=== PATIENT | female | born 1975 | race Caucasian/White ===

== ENCOUNTER 2017-07-16 21:53 | Emergency (ER) | payer MEDICAID, SELFPAY ==
[2017-07-16 21:54] VITALS: BP 150/73; PULSE 90; RESP 20; TEMP 36.9; O2SAT 96; BMI 42.1
--- NOTE | 2017-07-16 22:41 | ED.DCSUM_ITS ---
- ER Visit Summary Date of Service: 07/16/17 Chief Complaint: [] Depression History of Present Illness: The patient is a 41 F [] complaining of severe depression. She does report a previous history of suicide attempt and suicidal thoughts however she denies suicidal thoughts at this time. She reports she wants to see the crisis counselor to prevent her from going to the point where she needs to have suicidal thoughts. Denies any self-harm. Reports increased depression as result of not seeing her kids recently. Boyfriend at the bedside reports a 19-year-old son does not visit frequently and the 16-year-old was adopted secondary to the patient's previous suicide attempt several years ago. Physical Examination: [] Afebrile, vital signs stable. Middle-age female in no acute distress. Cardia vascular exam is regular rate and rhythm. Lungs were auscultation. Abdomen soft nontender. Patient is tearful otherwise unremarkable physical examination. Test Results: [] CBC shows elevated white blood cell count at 13.5. BMP normal. HCG negative. Tox screen positive for THC. Ethanol negative. Emergency Department Course and Treatment: [] Patient given oral Ativan for anxiolysis. On serial examination she felt improvement. Crisis counselor interviewed the patient and feel she does not warrant any emergent psychiatric evaluation. Patient feels improved and is amenable to discharge. Treatment Plan: [] Discharge, follow-up with psychiatrist on Thursday. Disposition: [] Discharge, stable. Impression: [] Depression This note was generated with [employer] dictation software. It may contain incorrect words, spelling, and punctuation that were not noted in review of the chart prior to signing ED Disposition - Plan for ED Patient: Chief Complaint: Mental Health Referrals: Care Physician,No Primary [Primary Care Provider] -
[2017-07-16 22:50] LABS: Absolute Lymphocyte Count 3.26 X10^3/ul (0.83-4.51); Absolute Neutrophil Count 9.1 X10^3/uL (2.0-7.7); Basophil# 0.03 X10^3/uL; Basophil% 0.2 % (0-1); Eosinophil# 0.18 X10^3/uL; Eosinophils% 1.3 % (0-5); Hematocrit 44.4 % (37-47); Hemoglobin 14.8 g/dl (12.0-15.0); Lymphocyte # 3.26 X10^3/ul (4.0); Lymphocyte % 24.2 % (19-41); Mean Corp Hgb Conc 33.3 g/gl (32-36); Mean Corpuscular Hgb 30.6 pg (27.0-32.0); Mean Corpuscular Volume 91.9 fL (81-99); Monocyte# 0.82 X10^3/uL; Monocyte% 6.1 % (0-10); Neutrophil # 9.14 X10^3/uL (2.7-7.7); Neutrophil % 68.1 % (47-70); POSITIVE COUNT NO; POSITIVE DIFFERENTIAL NO; POSITIVE MORPHOLOGY NO; Platelet Count 262 K/mm3 (150-450); RBC Distribution Width SD 43.5 fl (35.1-43.9); Red Blood Count 4.83 M/mm3 (4.2-5.4); White Blood Count 13.5 K/mm3 (4.4-11.0)
[2017-07-16 22:59] LABS: Anion Gap 5 (5-15); BUN 5 mg/dL (7-18); Calcium,Total 9.2 mg/dL (8.5-10.1); Chloride 107 mmol/L (98-107); Creatinine, Serum 0.84 mg/dL (0.55-1.02); EST Glomerular Filtration Rate 80 mL/min (>60); Est Glom Filt Rate - Afr Amer 97 mL/min (>60); Estimated Creatinine Clearance 77.65 ml/min; Glucose 101 mg/dL (70-110); Potassium 3.6 mmol/L (3.5-5.1); Sodium Level 141 mmol/L (136-145)
[2017-07-16] MEDS: LORazepam 0.5 MG Tablet PO (23:03)
[2017-07-16 23:04] LABS: Alcohol, Blood (Medical)-Serum < 3.0 mg/dL
[2017-07-16 23:08] LABS: Amphetamine Urine VISTA NEGATIVE (<1000 ng/mL); Barbiturate Urine VISTA NEGATIVE (< 200 ng/mL); Benzodiazepine Urine VISTA NEGATIVE (< 200 ng/mL); Cocaine Urine VISTA NEGATIVE (< 300 ng/mL); Ecstacy Urine VISTA NEGATIVE (< 500 ng/mL); Methadone Urine VISTA NEGATIVE (< 300 ng/mL); PCP Urine VISTA NEGATIVE (< 25 ng/mL); THC Urine VISTA POSITIVE (< 50 ng/mL); Vista UDS pH Range 5
[2017-07-16 23:12] LABS: Pregnancy, Serum, hCG Quali. NEGATIVE Negative (0-9 Nonpreg)
[2017-07-17 00:57] VITALS: RESP 14
[2017-07-17 01:24] VITALS: RESP 14
--- NOTE | 2017-07-17 01:39 | ED.DEP ---
ED Disposition - Plan for ED Patient: Disposition: Home or Assisted Living Chief Complaint: Mental Health Instructions: ED Depression Referrals: Care Physician,No Primary [Primary Care Provider] -
[2017-07-17 02:06] VITALS: BP 126/90; PULSE 79; RESP 14; O2SAT 98
== END 2017-07-17 02:07 | disposition home or self-care (01) ==
PROVIDERS: Emergency Provider Emergency Medicine
DX: F32.9 Major depressive disorder, single episode, unspecified (principal); E66.9 Obesity, unspecified; F41.9 Anxiety disorder, unspecified; F29 Unspecified psychosis not due to a substance or known physiological condition; Z72.0 Tobacco use; Z79.899 Other long term (current) drug therapy
CPT/HCPCS: 80048; 80307; 80320; 84703; 85025; 99283; A4216; G0480

== ENCOUNTER 2017-07-21 12:29 | Emergency (ER) | payer MEDICAID, SELFPAY ==
[2017-07-21 12:29] VITALS: BP 146/75; PULSE 88; RESP 14; TEMP 36.7; BMI 40.4
[2017-07-21 13:01] LABS: Mucous, Urine 0 SEEN /hpf (<or=2+)
[2017-07-21 13:04] LABS: Color, Urine Yellow (Yellow); Glucose, Dipstick Normal (Normal); Ketone-Dipstick 5 mg/dl (Negative); Leukocyte Esterase-Dipstick 25 /ul (Negative); Nitrite-Dipstick Negative (Negative); Occult Blood-Urine 150 /ul (Negative); Protein-Dipstick 30 mg/dl (Negative); Specific Gravity, Urine 1.025 (1.002-1.030); Urine Clarity Sl. Cloudy (Clear); Urine Urobilinogen 4 mg/dl (Normal)
[2017-07-21] MEDS: 0.9% Normal Saline 1,000 ML 1000 ML IV (13:30)
[2017-07-21] MEDS: Ketorolac 30 MG/ML Syringe IV (13:31)
[2017-07-21] MEDS: Ondansetron 4 MG/2 ML Vial IV (13:31)
[2017-07-21 13:33] LABS: Urine Bilirubin Dipstick 1 mg/dL (Negative)
[2017-07-21 13:41] LABS: Bacteria 1+ /hpf (None Seen); Red Blood Cells-Urine 10-25 SEEN /hpf (0-5); Squamous Epithelial Cells - UA 5-10 SEEN /hpf (5-10); White Blood Cells 0-5 SEEN /hpf (0-5)
--- NOTE | 2017-07-21 13:46 | ED.DCSUM_ITS ---
- ER Visit Summary Date of Service: 07/21/17 Chief Complaint: Abdominal pain History of Present Illness: The patient is a 42 F with no primary care physician. She reports that she has suprapubic abdominal pain began approximately 1 month ago. It is a constant cramping pain. She reports he becomes sharp and stabbing when she urinates. Is 10 out of 10 at worst 910 currently. She has been nauseated, but has not vomited. No diarrhea. Last bowel was 2-3 days ago. No melena or hematochezia. No fever, chills, or flank pain. Physical Examination: Vitals: Stable. Afebrile. General: Well-nourished and well-developed. Head: Normocephalic atraumatic. Neck: Supple, no lymphadenopathy. No JVD. Nontender. Cardiovascular: Regular rate and rhythm. No murmurs. Respiratory: No respiratory distress. Clear to auscultation bilaterally. Abdominal: Soft, mild suprapubic tenderness to palpation, nondistended, normal bowel sounds. No guarding, rebound, or peritoneal signs. Back: Nontender. No CVA tenderness. Extremities: Nontender, no edema. Skin: Normal color, no rash. Neurologic: Alert and oriented ?3. Cranial nerves II through XII are intact. Normal strength and sensation. Psych: Normal affect. Test Results: UA is remarkable for leukocytes, blood, 10-25 white blood cells, and 1+ bacteria. There are also 5-10 epithelial cells. Emergency Department Course and Treatment: Patient was treated with Macrobid p.o. She is given a dose of Toradol and Zofran IV. She had an argument with her significant other in the room and became upset. She is given dose of Vistaril p.o. Treatment Plan: Patient will be discharged on Macrobid and Pyridium. In[facility] if not improving. Disposition: To home in improved and stable condition. Impression: 1. UTI. This note was generated with [employer] dictation software. It may contain incorrect words, spelling, and punctuation that were not noted in review of the chart prior to signing ED Disposition - Plan for ED Patient: Disposition: Home or Assisted Living Chief Complaint: Abd Pain Instructions: ED UTI Cystitis Female Prescriptions: Ondansetron [Zofran Odt] 4 mg PO Q8H PRN PRN #10 tablet PRN Reason: Nausea Nitrofurantoin Macrocrystals [Macrobid] 100 mg PO Q12 #14 capsule Phenazopyridine HCl [Pyridium] 200 mg PO BID PRN PRN #10 tab PRN Reason: Pain Referrals: Corinna Lawson [NON-STAFF] - 1 Week if not improving
[2017-07-21] MEDS: Nitrofurantoin Macrocrystals 100 MG Capsule PO (14:29)
[2017-07-21] MEDS: Phenazopyridine 95 MG Tablet 190 MG PO (14:29)
--- NOTE | 2017-07-21 14:42 | ED.RN ---
PT AND SIG OTHER IN ROOM YELLING AND SCREAMING. THIS RN INTERRUPTED X2 TO ASK WHAT WAS OCCURRING. ON THE THIRD TIME SECURITY WAS PAGED AND MALE HALF ASKED TO WAIT IN THE WAITING ROOM. PT STARTS SCREAMING. REQUESTS SOMETHING FOR NERVES. PT MEDICATED. DC INSTRUCTIONS GIVEN
== END 2017-07-21 14:43 | disposition home or self-care (01) ==
PROVIDERS: Emergency Provider Emergency Medicine
DX: N39.0 Urinary tract infection, site not specified (principal); F41.9 Anxiety disorder, unspecified; F32.9 Major depressive disorder, single episode, unspecified; F43.10 Post-traumatic stress disorder, unspecified; G43.909 Migraine, unspecified, not intractable, without status migrainosus; Z72.0 Tobacco use; Z79.899 Other long term (current) drug therapy
CPT/HCPCS: 81001; 96361; 96374; 96375; 99282; J7050; A4216; J2405

== ENCOUNTER 2017-07-25 21:48 | Emergency (ER) | payer MEDICAID, SELFPAY ==
[2017-07-25 21:49] VITALS: BP 122/72; PULSE 80; RESP 15; TEMP 36; BMI 42.0
--- NOTE | 2017-07-25 22:58 | CT_ITS ---
STUDY: CT ABDOMEN AND PELVIS WITHOUT CONTRAST REASON FOR EXAM: Female, 42 years old. Flank pain. Urinary pain RADIATION DOSAGE (If Supplied By Facility): CTDIvol = ( 22.30 ) mGy, DLP = ( 1130.77 ) mGycm TECHNIQUE: Transaxial images were obtained from the dome of the diaphragm to the symphysis pubis without oral contrast, and without intravenous contrast. Sagittal and coronal images were reconstructed. Individualized dose optimization techniques were used for this CT. COMPARISON: None. FINDINGS: The visualized lung bases are unremarkable. The visualized portions of the heart are within normal limits. Normal liver. There is non-visualization of the gallbladder, which may be secondary to either contraction or a prior cholecystectomy. Normal spleen. Normal pancreas. There is a small, circumscribed, smooth, low attenuation right adrenal mass, consistent with an adrenal adenoma. Normal left adrenal gland. Normal right kidney. Normal left kidney. There is a small hiatal hernia. Normal small intestine. Normal colon. The appendix is visualized and appears normal. Normal abdominal aorta. Normal inferior vena cava. Normal retroperitoneum. Normal urinary bladder. There is absence of the uterus consistent with a prior hysterectomy. Normal abdominal wall. Normal osseous structures. CT/Abdomen/Pelvis without Cont IMPRESSION: Right adrenal adenoma. Hysterectomy. There are no renal stones. There is no hydronephrosis. Electronically Signed: Kingsley Rudolph MD at 23:46 EST , Service support ,
[2017-07-25 23:07] LABS: Mucous, Urine 0 SEEN /hpf (<or=2+)
[2017-07-25 23:10] LABS: Color, Urine Yellow (Yellow); Glucose, Dipstick Normal (Normal); Ketone-Dipstick Negative (Negative); Leukocyte Esterase-Dipstick 25 /ul (Negative); Nitrite-Dipstick Positive (Negative); Occult Blood-Urine 50 /ul (Negative); Protein-Dipstick Negative (Negative); Specific Gravity, Urine 1.015 (1.002-1.030); Urine Clarity Sl. Cloudy (Clear); Urine Urobilinogen 4 mg/dl (Normal); Urine pH 6.5 (5.0 - 8.0)
[2017-07-25] MEDS: 0.9% Normal Saline 1,000 ML 999 ML IV (23:13)
[2017-07-25] MEDS: Ondansetron 4 MG/2 ML Vial IV (23:14)
[2017-07-25] MEDS: Ketorolac 30 MG/ML Syringe IV (23:14)
[2017-07-25 23:18] LABS: Urine Bilirubin Dipstick 3 mg/dL (Negative)
[2017-07-25 23:19] LABS: Bacteria RARE /hpf (None Seen); Red Blood Cells-Urine 0-5 SEEN /hpf (0-5); Squamous Epithelial Cells - UA 10-25 SEEN /hpf (5-10); White Blood Cells 0-5 SEEN /hpf (0-5)
[2017-07-25 23:20] LABS: Amorphous Sediment 1+ URATE
[2017-07-25 23:47] LABS: Absolute Neutrophil Count 6.8 X10^3/uL (2.0-7.7); Basophil# 0.03 X10^3/uL; Basophil% 0.2 % (0-1); Eosinophil# 0.34 X10^3/uL; Eosinophils% 2.7 % (0-5); Hematocrit 44.8 % (37-47); Hemoglobin 14.5 g/dl (12.0-15.0); Lymphocyte % 33.1 % (19-41); Mean Corp Hgb Conc 32.4 g/gl (32-36); Mean Corpuscular Hgb 30.1 pg (27.0-32.0); Mean Corpuscular Volume 92.9 fL (81-99); Mean Platelet Vol. 10.5 fl (6.2-12.0); Monocyte# 1.06 X10^3/uL; Monocyte% 8.6 % (0-10); Neutrophil # 6.82 X10^3/uL (2.7-7.7); Neutrophil % 55.2 % (47-70); Platelet Count 229 K/mm3 (150-450); RBC Distribution Width CV 12.9 % (11.6-14.6); RBC Distribution Width SD 43.8 fl (35.1-43.9); Red Blood Count 4.82 M/mm3 (4.2-5.4); White Blood Count 12.4 K/mm3 (4.4-11.0)
[2017-07-25 23:54] LABS: POSITIVE COUNT NO; POSITIVE DIFFERENTIAL NO; POSITIVE MORPHOLOGY NO
[2017-07-26 00:09] LABS: Anion Gap 7 (5-15); BUN 13 mg/dL (7-18); Calcium,Total 8.9 mg/dL (8.5-10.1); Chloride 108 mmol/L (98-107); Creatinine, Serum 0.81 mg/dL (0.55-1.02); EST Glomerular Filtration Rate 83 mL/min (>60); Est Glom Filt Rate - Afr Amer 100 mL/min (>60); Estimated Creatinine Clearance 79.72 ml/min; Glucose 92 mg/dL (74-106); Potassium 3.8 mmol/L (3.5-5.1); Sodium Level 141 mmol/L (136-145)
--- NOTE | 2017-07-26 00:22 | ED.DCSUM_ITS ---
- ER Visit Summary Date of Service: 07/26/17 Chief Complaint: Abdominal pain History of Present Illness: The patient is a 42 F who presents with about 3 weeks of lower abdominal pain. She describes this as aching. She denies any dysuria but does report urinary frequency and urgency. She has had nausea without vomiting or diarrhea. She reports subjective fevers but has not checked temperature. She was seen July 21 in the emergency department and diagnosed with UTI at that time and prescribed Macrobid and Pyridium. She states that over the past day she has also had some pain beginning to radiate into her right flank. Physical Examination: Afebrile vitals are normal Moist mucous membranes Heart regular rate and rhythm Lungs clear Abdomen soft she has some suprapubic tenderness but no guarding no rebound she does have some right CVA tenderness Test Results: Laboratory studies notable for white blood cell count 12.4. Urinalysis shows positive nitrates and small leukocyte esterase but 0-5 WBCs 0- 5 RBCs and 10-[address] of the flank shows an adrenal adenoma but no ureteral calculi. Emergency Department Course and Treatment: On review of patient's prior cysts labs she had red blood cells in the urine. She also complains of pain radiating into the right flank which raises concern for possible kidney stone. CT of the flank however shows no ureteral calculus. She does have an incidental adrenal adenoma which she states she has been told previously. On urinalysis she does not have pyuria but she does have bacteria and nitrite so we will treat and send this for culture. Patient was given a prescription for Bactrim and Zofran. While here symptomatically she was treated with IV fluids Toradol and Zofran. Patient was advised on signs and symptoms to monitor for, conditions under which to return to the emergency department. All questions answered at bedside patient was discharged. Treatment Plan: [] Disposition: Discharge Impression: Adrenal adenoma Abdominal pain UTI This note was generated with [employer] dictation software. It may contain incorrect words, spelling, and punctuation that were not noted in review of the chart prior to signing ED Disposition - Plan for ED Patient: Chief Complaint: Complaint Referrals: Care Physician,No Primary [Primary Care Provider] -
--- NOTE | 2017-07-26 00:22 | ED.DEP ---
ED Disposition - Plan for ED Patient: Chief Complaint: Complaint Instructions: ED UTI Cystitis Female Prescriptions: Ondansetron [Zofran Odt] 4 mg PO Q8H PRN PRN #10 tab PRN Reason: Nausea Smz/Tmp Ds [Bactrim Ds] 1 tab PO BID #20 tab Referrals: Care Physician,No Primary [Primary Care Provider] -
[2017-07-26] MEDS: HYDROcodone Bitartrate/Apap 5/325 Tablet PO (00:30)
[2017-07-26 00:34] VITALS: BP 125/66; PULSE 76; RESP 16; O2SAT 98
== END 2017-07-26 00:34 | disposition home or self-care (01) ==
LOC: ED 23:30
PROVIDERS: Emergency Provider Emergency Medicine
DX: N39.0 Urinary tract infection, site not specified (principal); D35.00 Benign neoplasm of unspecified adrenal gland; R10.30 Lower abdominal pain, unspecified; F43.10 Post-traumatic stress disorder, unspecified; F41.9 Anxiety disorder, unspecified; F32.9 Major depressive disorder, single episode, unspecified; Z79.899 Other long term (current) drug therapy; Z87.440 Personal history of urinary (tract) infections
CPT/HCPCS: 74176; 80048; 81001; 85025; 87086; 87088; 96361; 96374; 96375; 99284; J7030; J2405

== ENCOUNTER 2017-08-03 22:29 | Emergency (ER) | payer MEDICAID, SELFPAY ==
[2017-08-03 22:30] VITALS: BP 160/81; PULSE 104; RESP 18; TEMP 36.8; BMI 42.0
--- NOTE | 2017-08-03 23:00 | ED.DCSUM_ITS ---
- ER Visit Summary Date of Service: 08/03/17 Chief Complaint: Suicidal thoughts History of Present Illness: The patient is a 42 F states she got in a fight with her boyfriend vitaliy and was feeling depressed and wanted him to take her to the hospital to talk to somebody to see psychiatry. He refused and so she went outside in the cold and since she did not want to call crisis while outside in the cold, she came to the emergency department. She has an appointment with psychiatry in the morning, it is 11 at night at this time. She has had some recent medication additions, she had to stop 1 of them because of itching, which is why she has an appointment tomorrow morning. She denies any plan, says she feels suicidal though. She did not eat or drink anything prior to coming or take any drugs or medications or attempt to kill herself. With further history, it appears that the patient and her boyfriend are homeless and living with somebody else at the time, who apparently lost power because they are not pain the [employer], so they are running the placed on a generator. The patient has been upset with her boyfriend all day, according to him, and called him to take care of things with regards to the generator, and since it is not his or his home, he refused, so she became very upset at him, threatening to run out into traffic, and I believe this is a big part of what led to her coming to the emergency department. Physical Examination: Lungs are stable, she is texting on her phone and well- appearing. Physical exam is normal. She has labile emotions. She is talking passive aggressively concerning her psychiatrist and her boyfriend. She states that she wants to talk to somebody vitaliy, and not necessarily be admitted, but did not call crisis prior to coming. Test Results: Labs are normal except for a slight hypokalemia at 3.4 which is likely due to shift from her being anxious. Toxicology shows positive benzos and marijuana but is otherwise normal negative. is negative. Emergency Department Course and Treatment: Patient is medically cleared for crisis evaluation, who is currently backlogged and the patient is waiting. She is requesting something for her nerves. She is given Vistaril and will await crisis evaluation. Treatment Plan: Crisis evaluation and likely discharge for her appointment with psychiatry in the morning. Update: Crisis evaluated, comfortable with her being discharged home with her boyfriend who is here to pick her up, she has a counseling appointment at 11 AM which is 8 hours away, in addition to her psychiatry appointment for working on adjusting her medications. In the emergency department, she was passive aggressive with regards to the examiner, and the fact that I would not give her benzodiazepines to calm her down. She has a long-standing history of substance abuse for which she has a care plan here. Given her somewhat manipulative behavior here in the ER, I do not think giving her benzos is in her best interest. She is discharged with her boyfriend. Disposition: Discharge home Impression: Situational reaction to stress Suicidal thoughts Bipolar disorder This note was generated with [employer] dictation software. It may contain incorrect words, spelling, and punctuation that were not noted in review of the chart prior to signing ED Disposition - Plan for ED Patient: Disposition: Home or Assisted Living Chief Complaint: Suicidal Instructions: ED Manic Depression Referrals: Counseling,Center [GROUP OF PHYSICIANS] - (as scheduled in AM)
[2017-08-03 23:23] LABS: Absolute Lymphocyte Count 2.25 X10^3/ul (0.83-4.51); Absolute Neutrophil Count 5.2 X10^3/uL (2.0-7.7); Basophil# 0.03 X10^3/uL; Basophil% 0.4 % (0-1); Eosinophil# 0.23 X10^3/uL; Eosinophils% 2.8 % (0-5); Hematocrit 45.3 % (37-47); Hemoglobin 14.6 g/dl (12.0-15.0); Lymphocyte # 2.25 X10^3/ul (4.0); Lymphocyte % 27.1 % (19-41); Mean Corp Hgb Conc 32.2 g/gl (32-36); Mean Corpuscular Hgb 29.8 pg (27.0-32.0); Mean Corpuscular Volume 92.4 fL (81-99); Monocyte# 0.64 X10^3/uL; Monocyte% 7.7 % (0-10); Neutrophil # 5.15 X10^3/uL (2.7-7.7); Neutrophil % 61.9 % (47-70); Platelet Count 248 K/mm3 (150-450); RBC Distribution Width CV 13.5 % (11.6-14.6); RBC Distribution Width SD 45.5 fl (35.1-43.9); White Blood Count 8.3 K/mm3 (4.4-11.0)
[2017-08-03 23:24] LABS: POSITIVE COUNT NO; POSITIVE DIFFERENTIAL NO; POSITIVE MORPHOLOGY NO
[2017-08-03 23:35] LABS: Anion Gap 8 (5-15); BUN 7 mg/dL (7-18); BUN/Creat Ratio 7.5 RATIO (10-20); Calcium,Total 8.7 mg/dL (8.5-10.1); Chloride 107 mmol/L (98-107); Creatinine, Serum 0.94 mg/dL (0.55-1.02); EST Glomerular Filtration Rate 70 mL/min (>60); Est Glom Filt Rate - Afr Amer 85 mL/min (>60); Glucose 104 mg/dL (74-106); Potassium 3.4 mmol/L (3.5-5.1); Sodium Level 139 mmol/L (136-145)
[2017-08-03 23:45] LABS: Pregnancy, Serum, hCG Quali. NEGATIVE Negative (0-9 Nonpreg)
[2017-08-03 23:53] LABS: Alcohol, Blood (Medical)-Serum < 3.0 mg/dL
--- NOTE | 2017-08-03 23:54 | ED.RN ---
PT CALLS OUT AND ASKS FOR SOMETHING TO CALM ME DOWN PATIENT IS CURLED UP IN THE BLANKET, ON HER PHONE, DRINKING WATER AND WATCHING TV. DR WOOD NOTIFIED AND ORDERED PO VISTARIL. UPON THIS RN BRINGING MEDICATION INTO THE ROOM SHE STATES I AM WAY BEYOND THAT AND I DONT WANT BENADRYL EITHER EXPLAINED TO PATIENT THAT THIS IS THE ONLY THING THE DR IS WILLING TO GIVE HER RIGHT NOW. PT STARTS YELLING IM 42 YEARS OLD I KNOW MY BRAIN, VISTARIL WONT DO ANYTHING PT HAS CALLED OUT REPEATEDLY TO TALK TO THE DR, REFUSES TO TALK TO THE RN. DR. WOOD REFUSED
[2017-08-03 23:58] LABS: Amphetamine Urine VISTA NEGATIVE (<1000 ng/mL); Barbiturate Urine VISTA NEGATIVE (< 200 ng/mL); Benzodiazepine Urine VISTA POSITIVE (< 200 ng/mL); Cocaine Urine VISTA NEGATIVE (< 300 ng/mL); Ecstacy Urine VISTA NEGATIVE (< 500 ng/mL); Methadone Urine VISTA NEGATIVE (< 300 ng/mL); PCP Urine VISTA NEGATIVE (< 25 ng/mL); THC Urine VISTA POSITIVE (< 50 ng/mL); Vista UDS pH Range 6
[2017-08-04 00:31] VITALS: RESP 18
[2017-08-04 01:03] VITALS: BP 162/91; PULSE 91; RESP 17; O2SAT 98
--- NOTE | 2017-08-04 01:10 | NURSING ---
pt requesting something for anxiety. md notified no orders given at this time
[2017-08-04 02:47] VITALS: RESP 18
[2017-08-04 03:21] VITALS: BP 160/94; PULSE 104; RESP 16; O2SAT 97
== END 2017-08-04 03:22 | disposition home or self-care (01) ==
PROVIDERS: Emergency Provider Emergency Medicine
DX: R45.851 Suicidal ideations (principal); F43.9 Reaction to severe stress, unspecified; F31.9 Bipolar disorder, unspecified; Z59.0 Homelessness; E66.9 Obesity, unspecified; Z72.0 Tobacco use; Z79.899 Other long term (current) drug therapy
CPT/HCPCS: 80048; 80307; 80320; 84703; 85025; 99284; G0480

== ENCOUNTER 2017-08-10 21:35 | Emergency (ER) | payer MEDICAID, SELFPAY ==
[2017-08-10 21:35] VITALS: BP 153/94; PULSE 101; RESP 20; TEMP 36.7; O2SAT 93; BMI 41.6
--- NOTE | 2017-08-10 22:58 | ED.VISSUMM ---
- ER Visit Summary Date of Service: 08/10/17 Chief Complaint: [] Right lower back injury History of Present Illness: The patient is a 42 F presents with a back injury yesterday gradually she has been hurting. She had a syncopal episode where she fell back into the windowsill and then slid down the wall. She is a history of syncope frequently in the past. She tried Excedrin. She is a history of L5-S1 fusion. No significant trauma yesterday. It was more of a sliding mechanism. She is having pain in the right lower back. She does not history of prior back pain and chronic neck pain. Physical Examination: Vital signs reviewed General: Well-nourished well-developed Head: Normocephalic atraumatic Eyes: Pupils equal round and reactive to light extraocular movements intact ENT: TMs clear no hemotympanum no trauma Neck: Nontender full range of motion Cardiovascular: Regular rate rhythm no murmurs normal S1-S2 Respiratory: No distress clear to auscultation bilaterally chest nontender Abdomen: Soft nontender nondistended normal bowel sounds no masses Back: Nontender no CVA tenderness mild tenderness right lower lumbar spine without swelling or deformity or contusion. Decreased range of motion mild secondary to pain. Extremities: Nontender active range of motion ?4 extremities no trauma Skin: Normal color no trauma Neuro alert oriented cranial nerves II through XII intact normal strength sensation reflexes Test Results: [] Emergency Department Course and Treatment: [] Given intramuscular analgesia. Do not feel she needs anything home. She will take [id number] NSAIDs and follow-up as an outpatient. I think she just bruised and strained her back. Treatment Plan: [] Disposition: [] Impression: [] Lumbar back injury suspected strain and contusion This note was generated with [employer] dictation software. It may contain incorrect words, spelling, and punctuation that were not noted in review of the chart prior to signing ED Disposition - Plan for ED Patient: Chief Complaint: Back Referrals: Care Physician,No Primary [Primary Care Provider] -
--- NOTE | 2017-08-10 23:00 | ED.DEP ---
ED Disposition - Plan for ED Patient: Disposition: Home or Assisted Living Chief Complaint: Back Instructions: ED Sprain Strain Lumbar Referrals: Care Physician,No Primary [Primary Care Provider] - Pa Malik DO [NON-STAFF] -
[2017-08-10] MEDS: Orphenadrine 60 MG/2 ML Ampul IM (23:14)
[2017-08-10] MEDS: HYDROmorphone 1 MG/ML Syringe IM (23:14)
[2017-08-10] MEDS: Ondansetron ODT 4 MG Tablet PO (23:22)
[2017-08-10 23:34] VITALS: RESP 16
--- NOTE | 2017-08-10 23:35 | ED.RN ---
REVIEWED D/C INSTRUCTIONS, FOLLOW UP CARE, AND S/S THAT WOULD WARRANT A RETURN TO THE ED WITH PT. PT VERBALIZED AN UNDERSTANDING AND DENIES FURTHER QUESTIONS FOR THIS RN. PT SKIN P/W/D, RESP EVEN AND UNLABORED, PT A&O X 3, NO DISTRESS NOTED. PT AMBULATED OUT OF ED, GAIT STEADY.
== END 2017-08-10 23:36 | disposition home or self-care (01) ==
LOC: ED 23:07
PROVIDERS: Emergency Provider Emergency Medicine
DX: S39.92XA Unspecified injury of lower back, initial encounter (principal); R55 Syncope and collapse; E66.9 Obesity, unspecified; J45.909 Unspecified asthma, uncomplicated; M54.2 Cervicalgia; F43.10 Post-traumatic stress disorder, unspecified; F41.9 Anxiety disorder, unspecified; Z79.899 Other long term (current) drug therapy; Z72.0 Tobacco use; W18.30XA Fall on same level, unspecified, initial encounter; Y93.89 Activity, other specified; Y92.89 Other specified places as the place of occurrence of the external cause; Y99.8 Other external cause status
CPT/HCPCS: 96372; 99282

== ENCOUNTER 2017-10-04 15:55 | Emergency (ER) | payer MEDICAID, SELFPAY ==
[2017-10-04 15:55] VITALS: BP 138/71; PULSE 93; RESP 16; TEMP 36.7; O2SAT 100; BMI 41.8
--- NOTE | 2017-10-04 16:14 | CT_ITS ---
STUDY: CT ABDOMEN AND PELVIS WITH CONTRAST REASON FOR EXAM: Female, 42 years old. Right lower quadrant pain. RADIATION DOSAGE (If Supplied By Facility): CTDIvol = ( 18.31 ) mGy, DLP = ( 1227.43 ) mGycm TECHNIQUE: Transaxial images were obtained from the dome of the diaphragm to the symphysis pubis with oral contrast. 100ML ml of Isovue 300 contrast was administered. Sagittal and coronal images were reconstructed. Individualized dose optimization techniques were used for this CT. COMPARISON: 07/25/2017 FINDINGS: The visualized lung bases are unremarkable. The visualized portions of the heart are within normal limits. There is decreased attenuation of the liver consistent with steatosis. There is non-visualization of the gallbladder, which may be secondary to either contraction or a prior cholecystectomy. Normal spleen. Normal pancreas. Stable 2.1 cm mass of the right adrenal gland. Normal left adrenal gland. Normal right kidney. Normal left kidney. Normal visualized stomach. Normal small intestine. Moderate fecal retention, otherwise negative colon. The appendix is visualized and appears normal. Normal abdominal aorta. Normal inferior vena cava. Normal retroperitoneum. Normal urinary bladder. There is absence of the uterus consistent with a prior hysterectomy. Normal abdominal wall. Normal osseous structures. CT/Abdomen/Pelvis WITH Contrast IMPRESSION: No definite acute abnormality. Stable 2 cm right adrenal mass. Fecal retention. Electronically Signed: Michael Combs MD at 19:42 EDT , Service support ,
--- NOTE | 2017-10-04 16:20 | ED.DCSUM_ITS ---
- ER Visit Summary Date of Service: 10/04/17 Chief Complaint: Abdominal pain History of Present Illness: The patient is a 42 F intermittent right-sided abdominal pain 2 days ago. This morning pain right side has been constant. Sharp in nature. 9 out of 10. Complains of nausea. No vomiting or diarrhea. Normal BM this morning. No urinary symptoms. History of cholecystectomy. States feels similar to when she had her gallbladder removed. Complains of chills. History of hysterectomy. Still has her appendix. Drink fluids prior to arrival, ate chips 3 hours prior to arrival. Physical Examination: General: Alert and oriented ?3, no acute distress HEENT: Normocephalic, atraumatic. Moist mucosa membranes Neck: supple, nontender. Cardiovascular: Regular rate and rhythm, no murmurs Respiratory: Normal breath sounds, symmetric, no distress Abdomen: Soft, Tenderness guarding right lower quadrant, slight tenderness right upper quadrant without guarding, nondistended. Negative Rovsing's. Extremities: Nontender, no edema, pulses intact ?4 Neuro: no focal neurological deficits. Test Results: WBC 11.8. Hemoglobin 15.2. Creatinine 0.73. Lipase 125. Liver enzymes normal. UA noted [address] abdomen pelvis with contrast: Normal appendix. Right adrenal mass. Emergency Department Course and Treatment: Patient right lower quadrant tenderness with nausea. Appendectomy workup initiated. Given fluids. Abdominal labs normal. Given Zofran and fentanyl. Workup negative for appendicitis. There is no right adrenal mass. After reviewing findings with the patient, states she just wants to go home. No progression of symptoms. Abdomen is soft on reevaluation. Discussed adrenal mass with patient importance for her to follow-up for reevaluation. Patient understands and agrees with plan. Prescription of Zofran given. Treatment Plan: [] Disposition: Discharge Impression: 1. Nonspecific abdominal pain 2. Adrenal mass This note was generated with [employer] dictation software. It may contain incorrect words, spelling, and punctuation that were not noted in review of the chart prior to signing ED Disposition - Plan for ED Patient: Disposition: Home or Assisted Living Chief Complaint: Abd Pain Diagnosis: Nonspecific abdominal pain, Right adrenal mass Instructions: ED Abdominal Pain Unkn Cause Prescriptions: Ondansetron [Zofran Odt] 4 mg PO Q8H PRN PRN #10 tablet PRN Reason: Nausea Referrals: Care Physician,No Primary [Primary Care Provider] - Radu Hills DO [STAFF PHYSICIAN] - 3-5 Days Additional Instructions: Normal appendix and workup. Right adrenal mass of 2 cm. Follow-up as an outpatient reevaluation and further testing.
[2017-10-04 16:48] LABS: Mucous, Urine 0 SEEN /hpf (<or=2+); Red Blood Cells-Urine 0 SEEN /hpf (0-5)
[2017-10-04 16:56] LABS: Color, Urine Yellow (Yellow); Glucose, Dipstick Normal (Normal); Ketone-Dipstick Negative (Negative); Leukocyte Esterase-Dipstick Negative /ul (Negative); Nitrite-Dipstick Negative (Negative); Occult Blood-Urine 25 /ul (Negative); Protein-Dipstick Negative (Negative); Urine Bilirubin Dipstick Negative (Negative); Urine Clarity Sl. Cloudy (Clear); Urine Urobilinogen Normal (Normal); Urine pH 6.5 (5.0 - 8.0)
[2017-10-04] MEDS: Ondansetron 4 MG/2 ML Vial IV (17:01)
[2017-10-04] MEDS: fentaNYL 100 MCG/2 ML Ampul 50 MCG IV ×2 (17:01→18:08)
[2017-10-04] MEDS: 0.9% Normal Saline 1,000 ML 125 ML IV (17:02)
[2017-10-04 17:05] LABS: Bacteria RARE /hpf (None Seen); Squamous Epithelial Cells - UA 5-10 SEEN /hpf (5-10); White Blood Cells 0-5 SEEN /hpf (0-5)
[2017-10-04 17:30] LABS: Absolute Lymphocyte Count 4.34 X10^3/ul (0.83-4.51); Absolute Neutrophil Count 5.8 X10^3/uL (2.0-7.7); Basophil# 0.03 X10^3/uL; Basophil% 0.3 % (0-1); Eosinophil# 0.28 X10^3/uL; Eosinophils% 2.4 % (0-5); Hematocrit 45.3 % (37-47); Hemoglobin 15.2 g/dl (12.0-15.0); Lymphocyte # 4.34 X10^3/ul (4.0); Lymphocyte % 36.7 % (19-41); Mean Corp Hgb Conc 33.6 g/gl (32-36); Mean Corpuscular Hgb 30.3 pg (27.0-32.0); Mean Corpuscular Volume 90.2 fL (81-99); Mean Platelet Vol. 9.7 fl (6.2-12.0); Monocyte# 1.35 X10^3/uL; Monocyte% 11.4 % (0-10); Neutrophil # 5.81 X10^3/uL (2.7-7.7); Platelet Count 253 K/mm3 (150-450); RBC Distribution Width CV 13.3 % (11.6-14.6); RBC Distribution Width SD 43.7 fl (35.1-43.9); Red Blood Count 5.02 M/mm3 (4.2-5.4); White Blood Count 11.8 K/mm3 (4.4-11.0)
[2017-10-04 17:33] LABS: POSITIVE COUNT NO; POSITIVE DIFFERENTIAL NO; POSITIVE MORPHOLOGY NO
[2017-10-04 18:00] VITALS: BP 130/78; PULSE 74; RESP 16; O2SAT 95
[2017-10-04 18:01] LABS: ALB/GLOB Ratio 0.9 RATIO (0.9-2.4); AST(SGOT) 15 U/L (15-37); Alanine Aminotransfer ALT/SGPT 17 U/L (13-56); Albumin, Serum 3.3 g/dL (3.2-5.0); Alkaline Phosphatase 100 U/L (45-117); Anion Gap 7 (5-15); BUN 3 mg/dL (7-18); BUN/Creat Ratio 4.1 RATIO (10-20); Calcium,Total 8.6 mg/dL (8.5-10.1); Chloride 109 mmol/L (98-107); Creatinine, Serum 0.73 mg/dL (0.55-1.02); EST Glomerular Filtration Rate 94 mL/min (>60); Est Glom Filt Rate - Afr Amer 114 mL/min (>60); Estimated Creatinine Clearance 88.46 ml/min; Globulin 3.7 g/dL (2.2-4.2); Glucose 81 mg/dL (74-106); Lipase 125 U/L (73-393); Potassium 4.3 mmol/L (3.5-5.1); Sodium Level 140 mmol/L (136-145)
[2017-10-04 20:00] VITALS: RESP 18
[2017-10-04 20:27] VITALS: BP 125/84; PULSE 93; RESP 15; O2SAT 95
== END 2017-10-04 20:33 | disposition home or self-care (01) ==
PROVIDERS: Emergency Provider Emergency Medicine
DX: R10.31 Right lower quadrant pain (principal); R10.11 Right upper quadrant pain; E27.8 Other specified disorders of adrenal gland; R11.0 Nausea; F43.10 Post-traumatic stress disorder, unspecified; F41.9 Anxiety disorder, unspecified; F32.9 Major depressive disorder, single episode, unspecified; Z72.0 Tobacco use; Z79.899 Other long term (current) drug therapy
CPT/HCPCS: 74177; 80053; 81001; 83690; 85025; 96361; 96374; 96375; 96376; 99285; J7030; Q9967; J2405

== ENCOUNTER 2017-11-02 21:35 | Emergency (ER) | payer MEDICAID, SELFPAY ==
[2017-11-02 21:36] VITALS: BP 148/73; PULSE 97; RESP 18; TEMP 36.7; O2SAT 99; BMI 40.9
--- NOTE | 2017-11-02 22:44 | ED.VISSUMM ---
- ER Visit Summary Date of Service: 11/02/17 Chief Complaint: Headache History of Present Illness: The patient is a 42 F [place] to the emergency department migraine headache. Patient has a history of migraine. She states that this is her normal headache. It started gradually yesterday. She has tried Excedrin Migraine both yesterday and today with no relief. She does take tizanidine from time to time for her headache. She does follow with a neurologist in [place]. She denies any trauma. She denies any carbon monoxide exposure. She denies any visual change. Physical Examination: Well-appearing patient is in no acute distress. Head is normocephalic, atraumatic. Pupils equal round reactive, extraocular muscles intact. There is no temporal artery tenderness. There is no vesicular rash. Neck supple. Kernig's and Brudzinski's are negative. Heart regular rate and rhythm. Lungs clear, chest nontender. Abdomen soft, nontender, nondistended. Neuro exam displays no focal or lateralizing deficit. 2+ symmetric lower extremity reflexes. No clonus. No ataxia or gait abnormality. Test Results: [] Emergency Department Course and Treatment: The patient presents with a migraine. She is a benign neurologic examination. She did not want IV medications. I had ordered the patient IM Phenergan, Benadryl, Toradol. The patient states those are not going to fucking work to the nurse. She states these medications never work. She states that she needs narcotics. The nurse tried to explain to her that narcotics and migraines are not appropriate. The patient states I get them all the time. The patient eloped from the emergency department without treatment. Treatment Plan: [] Disposition: Discharge Impression: 1. Migraine This note was generated with [employer] software. It may contain incorrect words, spelling, and punctuation that were not noted in review of the chart prior to signing ED Disposition - Plan for ED Patient: Chief Complaint: Headache Referrals: Care Physician,No Primary [Primary Care Provider] -
--- NOTE | 2017-11-02 22:56 | ED.RN ---
WHEN THIS RN ATTEMPTED TO MEDICATE PT, PT ASKED WHAT MEDS SHE WAS GETTING. INFORMED PT OF TORADOL, BENADRYL, AND PHENERGAN. PT SCOFFED AND SAID THEY WOULD NOT WORK. ASKED PT WHAT MEDS TYPICALLY HELPED OR IF THERE WAS A CERTAIN MEDICATION SHE WAS LOOKING FOR TO HELP HER. PT STATES I OUGHT TO JUST FUCKING LEAVE. I ALWAYS GET ACCUSED OF BEING A DRUG SEEKER WHEN I'M HERE. INFORMED PT THAT THIS RN WAS ONLY TRYING TO HELP PT IN WHAT SHE THOUGHT WOULD HELP HER. APOLOGIZED TO PT FOR HER THINKING PREVIOUS STATEMENT WAS IMPLIED. PT THEN BEGAN TALKING ABOUT OTHER DRS GIVING HER DIFFERENT MEDS, UPSET BECAUSE DRS TELL HER THIS IS THE COMBO OF MEDS YOU GET, THERE IS NOTHING ELSE WE CAN DO. INFORMED PT THIS IS THE TYPICAL MED COMBO THAT IS GIVEN FOR HEADACHES, AND THAT NARCOTICS WERE NOT GIVEN FOR MIGRAINES, DUE TO REBOUND HEADACHES. PT BECAME VERY IRATE AND BEGAN YELLING AND CUSSING AT NURSING STAFF WHILE LEAVING DEPARTMENT. PT VERBALIZED ISSUES THAT SHE IS ALWAYS TREATED LIKE A DRUG SEEKER WHEN SHE COMES TO THIS ER, AND THAT SHE IS NEVER GIVEN NARCOTICS BECAUSE [facility] ER LABELS HER A SEEKER. PT SIGNIFICANT OTHER CAME BACK TO NURSES STATION AFTER PT LEFT, ASKED THIS RN FIRST AND LAST NAME. THIS RN GAVE PT FIRST NAME, BUT TOLD S/O THAT LAST NAMES ARE NOT GIVEN DUE TO SAFETY CONCERNS.
--- NOTE | 2017-11-02 23:08 | ED.RN ---
PATIENT UPON LEAVING UPSET AND YELLING SAYING THAT SHE IS NOT A DRUG SEEKER AND THAT SHE IS NOT RECEIVING THE PROPER CARE. PATIENT LEFT THE ER SLAMMING AND HITTING OBJECTS SHE WAS LEAVING. SIGNIFICANT OTHER CAME BACK AND ASKED FOR NURSES INFORMATION. ADVISED THAT WE ONLY GIVE OUT FIRST NAMES. HE WAS FINE WITH THIS AND LEFT AT THIS TIME. DR. BLACKBURN MADE AWARE OF PATIENT ISSUE AND CONCERNS.
== END 2017-11-02 23:10 | disposition home or self-care (01) ==
LOC: ED 22:55
PROVIDERS: Emergency Provider Emergency Medicine
DX: G43.909 Migraine, unspecified, not intractable, without status migrainosus (principal); Z79.899 Other long term (current) drug therapy
CPT/HCPCS: 99282

== ENCOUNTER 2017-11-22 16:19 | Emergency (ER) | payer MEDICAID, SELFPAY ==
[2017-11-22 16:20] VITALS: BP 121/80; PULSE 103; RESP 15; TEMP 36.8; O2SAT 100; BMI 41.8
--- NOTE | 2017-11-22 16:45 | RAD_ITS ---
STUDY: X-RAY - RIGHT KNEE REASON FOR EXAM: Female, 42 years old. Pain. Fall. TECHNIQUE: 4 view(s) of the knee. COMPARISON: None. FINDINGS: Normal visualized distal femur. Normal visualized proximal tibia and fibula. Normal proximal tibiofibular articulation. There is no demonstrated fracture. Normal medial femorotibial compartment. Normal lateral femorotibial compartment. Normal patellofemoral articulation. There is no demonstrated joint effusion. The soft tissue structures are unremarkable. RAD/Knee 4 or More Views IMPRESSION: Normal x-ray examination of the knee. Electronically Signed: Michael Combs MD at 16:57 EDT , Service support ,
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
--- NOTE | 2017-11-22 17:01 | ED.DCSUM_ITS ---
- ER Visit Summary Date of Service: 11/22/17 Chief Complaint: Injury right knee and left hand History of Present Illness: The patient is a 42 F who went to her neighbor's house last evening. She relies she went to the wrong door. There is a step- off of 6 inches. She fell landing on her right knee and apparently injuring the volar surface of her left hand/wrist. She has not taken anything for the pain. She denies head trauma. She denies neck pain. She denies paresthesia, anesthesia medics presently or at the time of the injury. She denies any cardiorespiratory symptoms. She complains of pain with movement of the right knee and weightbearing. She does not have any area specific discomfort with regards to the left hand/wrist. She has no other complaints. Please read written note. Physical Examination: Vital signs are noted. Heart rate is 103. HEENT exam is unremarkable with no evidence of trauma. Heart is regular without murmur, gallop or rub. S1 and S2 are normal. Lungs are clear to auscultation with good movement of air bilaterally. Examination left upper extremity reveals no evidence of trauma. There is no point tenderness. Axillary, median, radial and ulnar function intact. Radial pulses palpable. There is no subungual hematoma noted. She has full active range of motion of her thumb and fingers. Capillary refill is normal. Sensation is normal. Examination of the right knee reveals an abrasion with erythema. There is no lymphangitis. The patella is not ballotable. There is no effusion. She complains of pain with varus and valgus stress testing; however, there is no laxity. Negative Tiburcio's test. Negative modified Tracy's test. She is able to extend 180? and flex to 90?. There is no pain to palpation the popliteal fossa nerves are palpable mass. DP and PT pulses are palpable. She has significant tenderness over the infrapatellar tendon. Test Results: 4 view x-ray of the knee was obtained. There is no fracture noted. There is osteophyte of the superior aspect of the patella. There is no effusion. There is no fracture noted. No foreign body is noted. Emergency Department Course and Treatment: X-ray of the knee was obtained to rule out fracture since she has joint line tenderness and rule out foreign body. Treatment Plan: Since patient has no contraindication to anti-inflammatory medication she was treated with Naprosyn. Last tetanus was 3 years ago. Disposition: Discharged home with appropriate home-going instructions Impression: 1. Mechanical fall with injury initial encounter 2. Abrasion/contusion right knee 3. Traumatic infrapatellar bursitis 4. Contusion left hand This note was generated with [employer] dictation software. It may contain incorrect words, spelling, and punctuation that were not noted in review of the chart prior to signing ED Disposition - Plan for ED Patient: Disposition: Home or Assisted Living Chief Complaint: Fall Instructions: ED Abrasion, ED Contusion Hand, ED Bursitis Prescriptions: Naproxen [Naprosyn] 500 mg PO BID #14 tab Referrals: Kimberly Gross, SEED CUTTER-C [Primary Care Provider] - 1 Week if not improving
--- NOTE | 2017-11-22 17:11 | NURSING ---
THIS RN INTO GIVE PTS TYLENOL AND ZOFRAN. PT LEFT DEPT WITHOUT RECEIVING MEDS AND PAPERWORK.
== END 2017-11-22 17:14 | disposition home or self-care (01) ==
PROVIDERS: Emergency Provider Emergency Medicine; Family Provider Nurse Practitioner Primary Care; PCP Nurse Practitioner Primary Care
DX: S80.211A Abrasion, right knee, initial encounter (principal); S60.222A Contusion of left hand, initial encounter; M70.41 Prepatellar bursitis, right knee; E66.9 Obesity, unspecified; Z72.0 Tobacco use; W17.89XA Other fall from one level to another, initial encounter; Y93.01 Activity, walking, marching and hiking; Y92.009 Unspecified place in unspecified non-institutional (private) residence as the place of occurrence of the external cause; Y99.8 Other external cause status
CPT/HCPCS: 73564; 99282

== ENCOUNTER 2018-01-13 23:34 | Emergency (ER) | payer MEDICAID, SELFPAY ==
[2018-01-13 23:36] VITALS: BP 119/68; PULSE 89; RESP 18; TEMP 36.5; O2SAT 99; BMI 42.2
--- NOTE | 2018-01-13 23:49 | ED.DCSUM_ITS ---
- ER Visit Summary Date of Service: 01/13/18 Chief Complaint: Headache History of Present Illness: The patient is a 42 F presenting with gradual onset headache which started 3 days ago. Pain is in the left side of her head. She states she has a history of migraines but they are typically on the right side. She denies fever. Denies trauma. She states she has had nausea and vomiting yesterday and today. Denies other complaints. Physical Examination: Vitals are stable. Patient is afebrile. Alert no acute distress. HEENT exam mild left maxillary sinus tenderness Neck is supple. No meningismus Lungs are clear and equal bilaterally. Heart is regular rate and rhythm. Abdomen is soft nontender nondistended. Extremities are unremarkable. Skin is warm and dry. No focal neurologic deficit. Remainder of exam is unremarkable. Emergency Department Course and Treatment: Patient declines IV placement and was given Compazine, Benadryl, Toradol IM. On reevaluation, she has improvement of her headache. She is requesting to go home. Advised to follow- up with her primary care physician. Advised return to ED if worsening complaints. Disposition: Discharge home Impression: Headache This note was generated with [employer] dictation software. It may contain incorrect words, spelling, and punctuation that were not noted in review of the chart prior to signing ED Disposition - Plan for ED Patient: Chief Complaint: Headache Referrals: Kimberly Gross NP-C [Primary Care Provider] -
[2018-01-13] MEDS: proCHLORPERazine 10 MG/2 ML Vial IM (23:56)
[2018-01-13] MEDS: Ketorolac 60 MG/2 ML Vial IM (23:56)
[2018-01-13] MEDS: DiphenhydrAMINE 50 MG/ML Syringe 25 MG IM (23:56)
--- NOTE | 2018-01-14 01:11 | ED.DEP ---
ED Disposition - Plan for ED Patient: Chief Complaint: Headache Instructions: ED Cephalgia Unspecified Referrals: Kimberly Gross NP-C [Primary Care Provider] -
[2018-01-14 01:17] VITALS: RESP 18
== END 2018-01-14 01:18 | disposition home or self-care (01) ==
LOC: ED 23:48
PROVIDERS: Emergency Provider Emergency Medicine; Family Provider Nurse Practitioner Primary Care; PCP Nurse Practitioner Primary Care
DX: R51 Headache (principal)
CPT/HCPCS: 96372; 99282

== ENCOUNTER 2018-01-29 00:24 | Emergency (ER) | payer MEDICAID, SELFPAY ==
[2018-01-29 00:26] VITALS: BP 122/78; PULSE 88; RESP 14; TEMP 36.6; O2SAT 98; BMI 39.9
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
--- NOTE | 2018-01-29 02:00 | ED.RN ---
pt states she was leaving and then left.
== END 2018-01-29 02:02 | disposition home or self-care (01) ==
LOC: ED 01:49
PROVIDERS: Emergency Provider Emergency Medicine; Family Provider Nurse Practitioner Primary Care; PCP Nurse Practitioner Primary Care
DX: S09.90XA Unspecified injury of head, initial encounter (principal); E66.9 Obesity, unspecified; M79.7 Fibromyalgia; Z72.0 Tobacco use; Z79.899 Other long term (current) drug therapy; W22.8XXA Striking against or struck by other objects, initial encounter; Y93.89 Activity, other specified; Y92.89 Other specified places as the place of occurrence of the external cause; Y99.8 Other external cause status
CPT/HCPCS: 99283

== ENCOUNTER 2018-02-18 17:12 | Emergency (ER) | payer MEDICAID, SELFPAY ==
[2018-02-18 17:13] VITALS: BP 129/111; PULSE 124; RESP 25; TEMP 36.8; O2SAT 97; BMI 42.5
[2018-02-18 17:21] VITALS: PULSE 112; RESP 17; O2SAT 98
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
[2018-02-18 17:58] LABS: Absolute Lymphocyte Count 4.25 X10^3/ul (0.83-4.51); Absolute Neutrophil Count 7.5 X10^3/uL (2.0-7.7); Basophil# 0.03 X10^3/uL; Basophil% 0.2 % (0-1); Eosinophil# 0.16 X10^3/uL; Eosinophils% 1.2 % (0-5); Hematocrit 43.4 % (37-47); Hemoglobin 14.5 g/dl (12.0-15.0); Lymphocyte # 4.25 X10^3/ul (4.0); Lymphocyte % 32.5 % (19-41); Mean Corp Hgb Conc 33.4 g/gl (32-36); Mean Corpuscular Hgb 30.1 pg (27.0-32.0); Monocyte# 1.11 X10^3/uL; Monocyte% 8.5 % (0-10); Neutrophil # 7.51 X10^3/uL (2.7-7.7); Neutrophil % 57.4 % (47-70); Platelet Count 268 K/mm3 (150-450); RBC Distribution Width CV 13.5 % (11.6-14.6); RBC Distribution Width SD 44.4 fl (35.1-43.9); Red Blood Count 4.82 M/mm3 (4.2-5.4); White Blood Count 13.1 K/mm3 (4.4-11.0)
[2018-02-18 17:59] LABS: POSITIVE COUNT NO; POSITIVE DIFFERENTIAL NO; POSITIVE MORPHOLOGY NO
[2018-02-18] MEDS: Aspirin 81 MG TAB.CHEW 324 MG PO (18:00)
[2018-02-18] MEDS: 0.9% Normal Saline 1,000 ML 1000 ML IV (18:11)
[2018-02-18 18:12] VITALS: BP 104/70; BP 115/62; PULSE 101; PULSE 108; RESP 21; O2SAT 97
--- NOTE | 2018-02-18 18:19 | ED.RN ---
DR BRUSH NOTIFIED PT C/O ROD AFTER FIRST NITRO. PT REFUSING ANY FURTHER NITRO
[2018-02-18 18:30] LABS: Anion Gap 12 (5-15); BUN 7 mg/dL (7-18); BUN/Creat Ratio 7.1 RATIO (10-20); Calcium,Total 8.8 mg/dL (8.5-10.1); Chloride 108 mmol/L (98-107); Creatinine, Serum 0.99 mg/dL (0.55-1.02); EST Glomerular Filtration Rate 66 mL/min (>60); Est Glom Filt Rate - Afr Amer 80 mL/min (>60); Estimated Creatinine Clearance 67.97 ml/min; Glucose 121 mg/dL (74-106); Potassium 3.6 mmol/L (3.5-5.1); Sodium Level 140 mmol/L (136-145)
[2018-02-18] MEDS: LORazepam 2 MG/ML Syringe 1 MG IV (18:30)
[2018-02-18 20:02] VITALS: PULSE 87; RESP 17; O2SAT 96
--- NOTE | 2018-02-18 21:07 | ED.DEP ---
ED Disposition - Plan for ED Patient: Disposition: Home or Assisted Living Chief Complaint: Chest Pain Instructions: ED Chest Pain Atypical Unkn Cause, ED Stress React Referrals: Kimberly Gross NP-C [Primary Care Provider] - 1-2 Days if not improving
[2018-02-18 21:24] VITALS: BP 111/84; PULSE 94; RESP 18; O2SAT 98
== END 2018-02-18 21:26 | disposition home or self-care (01) ==
PROVIDERS: Emergency Provider Emergency Medicine; Family Provider Nurse Practitioner Primary Care; PCP Nurse Practitioner Primary Care
DX: R07.9 Chest pain, unspecified (principal); F41.1 Generalized anxiety disorder; I10 Essential (primary) hypertension; M79.7 Fibromyalgia; E66.9 Obesity, unspecified; Z72.0 Tobacco use; Z79.899 Other long term (current) drug therapy
CPT/HCPCS: 36415; 71046; 80048; 84484; 85025; 93005; 96361; 96374; 99285; J7030; A4216

== ENCOUNTER 2018-03-18 06:51 | Emergency (ER) | payer MEDICAID, SELFPAY ==
[2018-03-18 06:53] VITALS: BP 155/103; PULSE 152; RESP 20; TEMP 36.6; O2SAT 97; BMI 44.2
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
[2018-03-18] MEDS: Ondansetron ODT 4 MG Tablet PO (08:31)
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
[2018-03-18 10:00] VITALS: RESP 16
== END 2018-03-18 10:25 | disposition home or self-care (01) ==
PROVIDERS: Emergency Provider Emergency Medicine; Family Provider Nurse Practitioner Primary Care; PCP Nurse Practitioner Primary Care
DX: S02.2XXA Fracture of nasal bones, initial encounter for closed fracture (principal); S00.531A Contusion of lip, initial encounter; S00.83XA Contusion of other part of head, initial encounter; R04.0 Epistaxis; Y04.0XXA Assault by unarmed brawl or fight, initial encounter; Y93.89 Activity, other specified; Y92.009 Unspecified place in unspecified non-institutional (private) residence as the place of occurrence of the external cause; F31.9 Bipolar disorder, unspecified; F41.9 Anxiety disorder, unspecified; F43.10 Post-traumatic stress disorder, unspecified; M79.7 Fibromyalgia; F12.90 Cannabis use, unspecified, uncomplicated; Z79.899 Other long term (current) drug therapy; Z72.0 Tobacco use
CPT/HCPCS: 70450; 70486; 99284

== ENCOUNTER 2018-04-04 14:23 | Emergency (ER) | payer MEDICAID, SELFPAY ==
[2018-04-04 14:24] VITALS: BP 122/88; PULSE 136; RESP 18; TEMP 36.4; O2SAT 97; BMI 41.4
--- NOTE | 2018-04-04 14:37 | ED.RN ---
Pt denies suicidal ideations upon arrival. This nurse verified pt intentions. I also confronted pt with her initial complaint per 911 call stating she claimed being suicidal. She admitted saying she was suicidal on the phone with priya but stated she got a lot off my chest on the way to the hospital. Directly states she does not want to hurt self and simply wants to talk with someone.
[2018-04-04] MEDS: Acetaminophen 325 MG Tablet 650 MG PO (14:54)
[2018-04-04] MEDS: Ondansetron ODT 4 MG Tablet PO (14:54)
[2018-04-04 14:55] LABS: Absolute Lymphocyte Count 2.32 X10^3/ul (0.83-4.51); Absolute Neutrophil Count 9.9 X10^3/uL (2.0-7.7); Basophil# 0.03 X10^3/uL; Basophil% 0.2 % (0-1); Eosinophil# 0.09 X10^3/uL; Eosinophils% 0.7 % (0-5); Hematocrit 43.6 % (37-47); Hemoglobin 14.4 g/dl (12.0-15.0); Lymphocyte # 2.32 X10^3/ul (4.0); Lymphocyte % 17.3 % (19-41); Mean Corpuscular Hgb 30.4 pg (27.0-32.0); Mean Platelet Vol. 9.4 fl (6.2-12.0); Monocyte# 1.03 X10^3/uL; Monocyte% 7.7 % (0-10); Neutrophil # 9.89 X10^3/uL (2.7-7.7); Platelet Count 310 K/mm3 (150-450); RBC Distribution Width CV 13.6 % (11.6-14.6); RBC Distribution Width SD 45.4 fl (35.1-43.9); Red Blood Count 4.74 M/mm3 (4.2-5.4); White Blood Count 13.4 K/mm3 (4.4-11.0)
[2018-04-04 14:57] LABS: POSITIVE COUNT NO; POSITIVE DIFFERENTIAL NO; POSITIVE MORPHOLOGY NO
[2018-04-04 14:58] LABS: Amphetamine Urine VISTA POSITIVE (<1000 ng/mL); Barbiturate Urine VISTA NEGATIVE (< 200 ng/mL); Benzodiazepine Urine VISTA NEGATIVE (< 200 ng/mL); Cocaine Urine VISTA NEGATIVE (< 300 ng/mL); Ecstacy Urine VISTA NEGATIVE (< 500 ng/mL); Methadone Urine VISTA NEGATIVE (< 300 ng/mL); PCP Urine VISTA NEGATIVE (< 25 ng/mL); THC Urine VISTA POSITIVE (< 50 ng/mL); Vista UDS pH Range 6
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
[2018-04-04 15:08] LABS: Anion Gap 7 (5-15); BUN 7 mg/dL (7-18); BUN/Creat Ratio 8.7 RATIO (10-20); Calcium,Total 9.1 mg/dL (8.5-10.1); Chloride 102 mmol/L (98-107); EST Glomerular Filtration Rate 84 mL/min (>60); Est Glom Filt Rate - Afr Amer 102 mL/min (>60); Estimated Creatinine Clearance 87.51 ml/min; Glucose 107 mg/dL (74-106); Sodium Level 135 mmol/L (136-145)
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
[2018-04-04 15:13] LABS: Pregnancy, Serum, hCG Quali. NEGATIVE Negative (0-9 Nonpreg)
[2018-04-04 15:22] LABS: Alcohol, Blood (Medical)-Serum < 3.0 mg/dL
[2018-04-04 16:01] VITALS: BP 129/85; PULSE 109; RESP 16; O2SAT 99
--- NOTE | 2018-04-04 17:10 | NURSING ---
ANGELA, CRISIS, HERE
--- NOTE | 2018-04-04 17:10 | ED.DEP ---
ED Disposition - Plan for ED Patient: Chief Complaint: Mental Health Instructions: ED Depression Referrals: Kimberly Gross, UTILITY BILL COLLECTION CLERK-C [Primary Care Provider] - As Needed Additional Instructions: follow up with crisis as instructed
--- NOTE | 2018-04-04 17:11 | DCINST.ED_ITS ---
ED Disposition - Plan for ED Patient: Chief Complaint: Mental Health Instructions: ED Depression Referrals: Kimberly Gross, MANUFACTURER'S REPRESENTATIVE-C [Primary Care Provider] - As Needed Additional Instructions: follow up with crisis as instructed
--- NOTE | 2018-04-04 17:11 | ED.VISSUMM ---
- ER Visit Summary Date of Service: 04/04/18 Chief Complaint: [Addendum to initial dictation by Dr. Leon] History of Present Illness: The patient is a 42 F [presented to the emergency department and was fully evaluated by morning physician and care turned over to me awaiting evaluation by crisis. At this point the patient is denying suicidal ideation and can contract for safety. It is felt patient can be safely discharged home. Morning physician also thought that patient would likely be able to go home.] Physical Examination: [] Test Results: [] Emergency Department Course and Treatment: [] Treatment Plan: [] Disposition: [Discharged home in stable condition] Impression: [Depression Mood disorder] This note was generated with [employer] dictation software. It may contain incorrect words, spelling, and punctuation that were not noted in review of the chart prior to signing ED Disposition - Plan for ED Patient: Chief Complaint: Mental Health Instructions: ED Depression Referrals: Kimberly Gross NP-C [Primary Care Provider] - As Needed Additional Instructions: follow up with crisis as instructed
[2018-04-04 17:23] VITALS: BP 132/86; PULSE 98; RESP 16; O2SAT 99
== END 2018-04-04 17:24 | disposition home or self-care (01) ==
PROVIDERS: Emergency Provider Emergency Medicine; Family Provider Nurse Practitioner Primary Care; PCP Nurse Practitioner Primary Care
DX: F32.9 Major depressive disorder, single episode, unspecified (principal); F99 Mental disorder, not otherwise specified; F43.10 Post-traumatic stress disorder, unspecified; F41.9 Anxiety disorder, unspecified; Z72.0 Tobacco use; Z79.899 Other long term (current) drug therapy
CPT/HCPCS: 36415; 80048; 80307; 80320; 84703; 85025; 99285; G0480

== ENCOUNTER 2018-04-26 19:08 | Emergency (ER) | payer MEDICAID, SELFPAY ==
[2018-04-26 19:09] VITALS: BP 134/73; PULSE 88; RESP 18; TEMP 36.6; O2SAT 97; BMI 43.4
--- NOTE | 2018-04-26 21:11 | RAD_ITS ---
STUDY: X-RAY CHEST REASON FOR EXAM: Female, 42 years old. Cough and cold TECHNIQUE: PA and lateral views of the chest. COMPARISON: Prior study of 02/18/2018 FINDINGS: The lungs are clear and expanded. There is no demonstrated pleural abnormality. Normal size heart. There is a small hiatal hernia. Normal visualized pulmonary arteries. Normal visualized aortic arch and descending thoracic aorta. Normal visualized thoracic spine. Normal visualized ribs, clavicles, and shoulders. There is no demonstrated abnormality of the visualized soft tissue structures of the upper abdomen. RAD/Chest PA and Lateral IMPRESSION: Small hiatal hernia. No acute cardiopulmonary disease process is seen. Chest findings are stable in the interval. Electronically Signed: Mandeep Walls MD at 21:24 EST , Service support ,
--- NOTE | 2018-04-26 21:37 | ED.DCSUM_ITS ---
- ER Visit Summary Date of Service: 04/26/18 Chief Complaint: Cough History of Present Illness: The patient is a 42 F who states that for the past week he she has had cough and some rhinorrhea. She also notes a sore throat. She is a heavy smoker. She was recently diagnosed with hypertension. She is concerned she may have pneumonia. She denies any fevers. No significant sputum production. Symptoms are worse at night when she lays down. Physical Examination: Afebrile vital signs are stable Gen: Well-nourished well-developed Head: Normocephalic atraumatic Eyes: Perrl EOMI ENT: TMs clear turbinate edema and clear rhinorrhea moist mucous membranes Neck: Supple no lymphadenopathy no JVD nontender CVS: Regular rate rhythm no murmurs normal S1-S2 Respiratory: No distress clear to auscultation bilaterally chest nontender frequent dry cough Abdomen: Soft nontender nondistended normal bowel sounds no masses Back: Nontender Extremity: Nontender no edema Skin: Normal color no rash Neuro: alert orientated ?3 CN II-XII intact normal strength sensation reflexes gait cerebellar Psych: Normal affect normal mood Test Results: Chest x-ray is negative for infiltrate. Emergency Department Course and Treatment: We will trial Tessalon. I believe this to be a viral illness. Follow-up with primary care return if worsening or concerns. Impression: Viral respiratory infection This note was generated with [employer] dictation software. It may contain incorrect words, spelling, and punctuation that were not noted in review of the chart prior to signing ED Disposition - Plan for ED Patient: Disposition: Home or Assisted Living Chief Complaint: Cold Sx Instructions: ED Upper Resp Infec No Abx Tx Prescriptions: Benzonatate [Tessalon Perle] 200 mg PO TID PRN PRN #20 cap PRN Reason: Cough Referrals: Kimberly Gross, RENETTA-C [Primary Care Provider] - 1 Week if not improving
[2018-04-26] MEDS: Benzonatate 100 MG Capsule 200 MG PO (21:41)
[2018-04-26 21:42] VITALS: BP 126/88; PULSE 80; RESP 18; O2SAT 97
== END 2018-04-26 21:43 | disposition home or self-care (01) ==
PROVIDERS: Emergency Provider Emergency Medicine; Family Provider Nurse Practitioner Primary Care; PCP Nurse Practitioner Primary Care
DX: J06.9 Acute upper respiratory infection, unspecified (principal); I10 Essential (primary) hypertension; F17.200 Nicotine dependence, unspecified, uncomplicated; Z79.899 Other long term (current) drug therapy
CPT/HCPCS: 71046; 99283

== ENCOUNTER 2018-05-02 18:07 | Emergency (ER) | payer MEDICAID, SELFPAY ==
[2018-05-02 18:09] VITALS: BP 122/74; PULSE 112; RESP 20; TEMP 35.9; O2SAT 95; BMI 44.3
--- NOTE | 2018-05-02 18:20 | ED.DCSUM_ITS ---
- ER Visit Summary Date of Service: 05/02/18 Chief Complaint: Headache History of Present Illness: The patient is a 42 F presenting with headache. She states this started gradually approximately 1 week ago. She has tried Excedrin at home. She complains of photophobia. She has nausea with no vomiting. She denies fever. This is similar to her previous migraines. No recent head trauma. No other complaints. Physical Examination: Vitals are stable. Patient is afebrile. Alert no acute distress. HEENT exam is unremarkable. Neck is supple. No meningismus Lungs are clear and equal bilaterally. Heart is regular rate and rhythm. Extremities are unremarkable. Skin is warm and dry. No focal neurologic deficit. Normal strength medication Remainder of exam is unremarkable. Emergency Department Course and Treatment: Patient was given Compazine, Benadryl, Toradol IM. On reevaluation, she is feeling improved. She will be discharged. She is advised to follow-up with her primary care physician. She is advised to return to ED for worsening complaints. Disposition: Discharge home Impression: Headache This note was generated with [employer] dictation software. It may contain incorrect words, spelling, and punctuation that were not noted in review of the chart prior to signing ED Disposition - Plan for ED Patient: Chief Complaint: Headache Referrals: Kimberly Gross NP-C [Primary Care Provider] -
[2018-05-02] MEDS: DiphenhydrAMINE 50 MG/ML Syringe 25 MG IM (18:28)
[2018-05-02] MEDS: Ketorolac 60 MG/2 ML Vial IM (18:28)
[2018-05-02] MEDS: proCHLORPERazine 10 MG/2 ML Vial IM (18:28)
--- NOTE | 2018-05-02 19:17 | ED.DEP ---
ED Disposition - Plan for ED Patient: Chief Complaint: Headache Instructions: ED Headache Migraine Referrals: Kimberly Gross NP-C [Primary Care Provider] -
[2018-05-02 19:23] VITALS: RESP 16
== END 2018-05-02 19:28 | disposition home or self-care (01) ==
LOC: ED 18:36
PROVIDERS: Emergency Provider Emergency Medicine; Family Provider Nurse Practitioner Primary Care; PCP Nurse Practitioner Primary Care
DX: G43.909 Migraine, unspecified, not intractable, without status migrainosus (principal); M79.7 Fibromyalgia; Z72.0 Tobacco use; Z79.899 Other long term (current) drug therapy
CPT/HCPCS: 96372; 99282

== ENCOUNTER 2018-06-03 21:28 | Emergency (ER) | payer MEDICAID, SELFPAY ==
[2018-06-03 21:28] VITALS: BMI 42.0
[2018-06-03 21:30] VITALS: BP 114/59; PULSE 97; RESP 22; TEMP 36.3; O2SAT 97; BMI 43.7
--- NOTE | 2018-06-03 21:42 | EKG12_ITS ---
Test Reason : CP/SOB Blood Pressure : / mmHG Vent. Rate : 075 BPM Atrial Rate : 075 BPM P-R Int : 140 ms QRS Dur : 084 ms QT Int : 370 ms P-R-T Axes : 025 061 051 degrees QTc Int : 413 ms Normal sinus rhythm Normal ECG Confirmed by JESSA SEGURA, SHEILA ([id number]), editor magazine ROGER MURO ([id number]) on 06/04/2018 12:00:22 PM Referred By: DES Confirmed By:SHEILA GERMAIN MD
--- NOTE | 2018-06-03 21:50 | RAD_ITS ---
STUDY: X-RAY CHEST REASON FOR EXAM: Female, 42 years old. Shortness of breath TECHNIQUE: AP portable view of the chest. COMPARISON: April 26, 2018. FINDINGS: The lungs are clear and expanded. There is no demonstrated pleural abnormality. Normal size heart. There is retrocardiac hiatal hernia. Normal visualized pulmonary arteries. Normal visualized aortic arch and descending thoracic aorta. Normal visualized thoracic spine. Normal visualized ribs, clavicles, and shoulders. There is no demonstrated abnormality of the visualized soft tissue structures of the upper abdomen. RAD/Chest 1 View (Portable) IMPRESSION: Hiatal hernia. Lungs are clear. Electronically Signed: Aj Shoemaker MD at 22:36 EST , Service support ,
--- NOTE | 2018-06-03 21:53 | ED.VISSUMM ---
- ER Visit Summary Date of Service: 06/03/18 Chief Complaint: [] [place] a pop in the upper back lifting boxes yesterday History of Present Illness: The patient is a 42 F [] fibromyalgia chronic headaches other chronic pain syndrome conditions she is having trouble describing, reports she was lifting boxes while she was moving and she felt a strange sensation in her upper back that felt like a pop, and then she also describes intermittent pain in her chest. She did not have any direct trauma to her body was all related to her bending over and lifting heavy box, there is been no fever no cough no numbness weakness or paresthesias normal bowel bladder habits, she has no history of [place] PE or DVT she is taking Lyrica for her fibromyalgia and other painful syndromes Physical Examination: [] 114/59 9097 on room air General, no distress resting comfortably HEENT is generally unremarkable The neck is supple no adenopathy Cardiovascular, regular rate and rhythm she complains of pain to the right side of her chest, she complains of the pain to the upper back in a diffuse fashion but not specific to any dermatome or region she has no C-spine T-spine pain, she has full range of motion of her upper extremities and lower extremities without pain when she turns her torso or leans forward she has discomfort to that part of her body Lungs, clear bilateral Abdomen, soft nontender Extremities, no clubbing cyanosis or edema Neurologic, awake alert answering questions appropriately moving all 4 extremities She is a very large individual she has no history of easily fractured bones or ribs no direct trauma, there is clearly a mechanical component to all of the above her EKG shows a sinus rhythm nothing acute screening labs are obtained Test Results: [] Emergency Department Course and Treatment: [] Labs are unremarkable discussed all the above with her she is comfortable discharge home again she has had this for 2 days I explained that we cannot further manage her chronic painful conditions such as fibromyalgia she take Tylenol her Lyrica and other brie-fap-ritnxth meds and see her outpatient providers tomorrow Treatment Plan: [] Disposition: [] Home stable Impression: [] Upper back and right-sided chest pain after lifting heavy box This note was generated with Sales Rabbitation software. It may contain incorrect words, spelling, and punctuation that were not noted in review of the chart prior to signing ED Disposition - Plan for ED Patient: Chief Complaint: Shortness of Breath Referrals: Renato,Kimberly, MANAGER DEVELOPMENTAL-C [Primary Care Provider] -
[2018-06-03] MEDS: Aspirin 81 MG TAB.CHEW 324 MG PO (21:56)
--- NOTE | 2018-06-03 21:56 | ED.DCSUM_ITS ---
- ER Visit Summary Date of Service: 06/03/18 Chief Complaint: [] [place] a pop in the upper back lifting boxes yesterday History of Present Illness: The patient is a 42 F [] fibromyalgia chronic headaches other chronic pain syndrome conditions she is having trouble describing, reports she was lifting boxes while she was moving and she felt a strange sensation in her upper back that felt like a pop, and then she also describes intermittent pain in her chest. She did not have any direct trauma to her body was all related to her bending over and lifting heavy box, there is been no fever no cough no numbness weakness or paresthesias normal bowel bladder habits, she has no history of [place] PE or DVT she is taking Lyrica for her fibromyalgia and other painful syndromes Physical Examination: [] 114/59 9097 on room air General, no distress resting comfortably HEENT is generally unremarkable The neck is supple no adenopathy Cardiovascular, regular rate and rhythm she complains of pain to the right side of her chest, she complains of the pain to the upper back in a diffuse fashion but not specific to any dermatome or region she has no C-spine T-spine pain, she has full range of motion of her upper extremities and lower extremities without pain when she turns her torso or leans forward she has discomfort to that part of her body Lungs, clear bilateral Abdomen, soft nontender Extremities, no clubbing cyanosis or edema Neurologic, awake alert answering questions appropriately moving all 4 extremities She is a very large individual she has no history of easily fractured bones or ribs no direct trauma, there is clearly a mechanical component to all of the above her EKG shows a sinus rhythm nothing acute screening labs are obtained Test Results: [] Emergency Department Course and Treatment: [] Labs are unremarkable discussed all the above with her she is comfortable discharge home again she has had this for 2 days I explained that we cannot further manage her chronic painful conditions such as fibromyalgia she take Tylenol her Lyrica and other [id number]-[id number] meds and see her outpatient providers tomorrow Treatment Plan: [] Disposition: [] Home stable Impression: [] Upper back and right-sided chest pain after lifting heavy box This note was generated with Playviewsation software. It may contain incorrect words, spelling, and punctuation that were not noted in review of the chart prior to signing ED Disposition - Plan for ED Patient: Chief Complaint: Shortness of Breath Referrals: Renato,Kimberly, SUMMER SCHOOL COORDINATOR-C [Primary Care Provider] -
--- NOTE | 2018-06-03 21:56 | DCINST.ED_ITS ---
ED Disposition - Plan for ED Patient: Chief Complaint: Shortness of Breath Instructions: ED Chest Pain Atypical Unkn Cause, ED Spasm Back No Trauma Referrals: Kimberly Gross, OUTSIDE SALES CONSULTANT-C [Primary Care Provider] -
[2018-06-03] MEDS: 0.9% Normal Saline 1,000 ML 150 ML IV (21:57)
[2018-06-03] MEDS: Ondansetron 4 MG/2 ML Vial IV (21:59)
[2018-06-03 22:00] LABS: Absolute Lymphocyte Count 2.85 X10^3/ul (0.83-4.51); Absolute Neutrophil Count 6.3 X10^3/uL (2.0-7.7); Basophil# 0.03 X10^3/uL; Basophil% 0.3 % (0-1); Eosinophil# 0.19 X10^3/uL; Eosinophils% 1.8 % (0-5); Hematocrit 40.9 % (37-47); Hemoglobin 13.6 g/dl (12.0-15.0); Lymphocyte # 2.85 X10^3/ul (4.0); Lymphocyte % 27.3 % (19-41); Mean Corp Hgb Conc 33.3 g/gl (32-36); Mean Corpuscular Hgb 30.4 pg (27.0-32.0); Mean Corpuscular Volume 91.3 fL (81-99); Mean Platelet Vol. 9.2 fl (6.2-12.0); Monocyte# 1.07 X10^3/uL; Monocyte% 10.2 % (0-10); Neutrophil # 6.27 X10^3/uL (2.7-7.7); Neutrophil % 60.1 % (47-70); Platelet Count 236 K/mm3 (150-450); RBC Distribution Width CV 13.4 % (11.6-14.6); RBC Distribution Width SD 44.3 fl (35.1-43.9); Red Blood Count 4.48 M/mm3 (4.2-5.4); White Blood Count 10.4 K/mm3 (4.4-11.0)
[2018-06-03 22:01] LABS: POSITIVE COUNT NO; POSITIVE DIFFERENTIAL NO; POSITIVE MORPHOLOGY NO
[2018-06-03 22:18] LABS: Anion Gap 6 (5-15); BUN 10 mg/dL (7-18); BUN/Creat Ratio 13.4 RATIO (10-20); Calcium,Total 8.9 mg/dL (8.5-10.1); Chloride 108 mmol/L (98-107); Creatinine, Serum 0.75 mg/dL (0.55-1.02); EST Glomerular Filtration Rate 91 mL/min (>60); Est Glom Filt Rate - Afr Amer 110 mL/min (>60); Estimated Creatinine Clearance 89.72 ml/min; Glucose 107 mg/dL (74-106); Potassium 4.1 mmol/L (3.5-5.1); Sodium Level 137 mmol/L (136-145)
[2018-06-03 22:28] LABS: BNP,B-Type NATRIURETIC PEPTIDE 48.1 pg/mL (0-100)
[2018-06-03 22:54] VITALS: BP 130/60; PULSE 84; RESP 16; O2SAT 96
--- OUTSIDE RECORDS SUMMARY | 2018-07-20 15:35 | XMS RPT_ITS ---
:1975 Author Organization OHIP Support Name Relationship Address Phone D Unavailable Unavailable Unavailable FERNY, DARYA Unavailable Unavailable + [place] [address] D Unavailable Unavailable Unavailable FERNY, DARYA Unavailable Unavailable + [place] [address] CRAMER, SLIME Unavailable Unavailable + SLIME CRAMER Unavailable Unavailable + FERNY, EDISON Unavailable Unavailable + D Unavailable Unavailable Unavailable FERNY, DARYA Unavailable Unavailable + [place] [address] SLIME CRAMER Unavailable Unavailable + SLIME CRAMER Unavailable Unavailable + FERNY, EDISON Unavailable Unavailable + D Unavailable Unavailable Unavailable FERNY, DARYA Unavailable Unavailable + [place] [address] CRAMERSLIME DUBOIS Unavailable Unavailable + CRAMERSLIME DUBOIS Unavailable Unavailable + FERNY, EDISON Unavailable Unavailable + CRAMER, SLIME Unavailable Unavailable + SLIME CRAMER Unavailable Unavailable + FERNY, EDISON Unavailable Unavailable + D Unavailable Unavailable Unavailable FERNY, DARYA Unavailable Unavailable + [place] [address] CRAMER, SLIME Unavailable Unavailable + SLIME CRAMER Unavailable Unavailable + FERNY, EDISON Unavailable Unavailable + D Unavailable Unavailable Unavailable FERNY, DARYA Unavailable Unavailable + [place] [address] D Unavailable Unavailable Unavailable D Unavailable Unavailable Unavailable FERNY, DARYA Unavailable Unavailable + [place] [address] CRAMERSLIME DUBOIS Unavailable [address] + [place] [address] NOT GIVEN Unavailable Unavailable Unavailable SLIME CRAMER Unavailable [address] + [place] [address] NOT GIVEN Unavailable Unavailable Unavailable SLIME CRAMER Unavailable Unavailable + SLIME CRAMER Unavailable Unavailable + FERNY, EDISON Unavailable Unavailable + D Unavailable Unavailable Unavailable SLIME CRAMER Unavailable [address] + [place] [address] FERNY, DARYA Unavailable Unavailable + [place] [address] SLIME CRAMER Unavailable Unavailable + SLIME CRAMER Unavailable Unavailable + FERNY, EDISON Unavailable Unavailable + D Unavailable Unavailable Unavailable FERNY, DARYA Unavailable Unavailable + [place] [address] SLIME CRAMER Unavailable Unavailable + SLIME CRAMER Unavailable Unavailable + FERNY, EDISON Unavailable Unavailable + SLIME CRAMER Unavailable Unavailable + SLIME CRAMER Unavailable Unavailable + FERNY, EDISON Unavailable Unavailable + SLIME CRAMER Unavailable Unavailable + SLIME CRAMER Unavailable Unavailable + FERNY, EDISON Unavailable Unavailable + SLIME CRAMER Unavailable Unavailable + SLIME CRAMER Unavailable Unavailable + FERNY, EDISON Unavailable Unavailable + FERNY, DARYA Unavailable Unavailable + [place] [address] UE Unavailable Unavailable Unavailable UE Unavailable Unavailable Unavailable SLIME CRAMER Unavailable Unavailable + FERNY, EDISON Unavailable Unavailable + FERNY, EDISON Unavailable Unavailable + SLIME CRAMER Unavailable Unavailable + SLIME CRAMER Unavailable Unavailable + FERNY, EDISON Unavailable Unavailable + SLIME CRAMER Unavailable [address] + [address] [place] [address] FERNY DARYA Unavailable Unavailable + [place] [address] UE Unavailable Unavailable Unavailable CRAMERSLIME DUBOIS Unavailable Unavailable + CRAMERSLIME DUBOIS Unavailable Unavailable + FERNY, EDISON Unavailable Unavailable + CRAMERSLIME DUBOIS Unavailable Unavailable + CRAMERSLIME DUBOIS Unavailable Unavailable + FERNY, EDISON Unavailable Unavailable + CRAMERSLIME Unavailable [address] + [address] [place] [address] FERNY, DARYA Unavailable Unavailable + [place] [address] UE Unavailable Unavailable Unavailable SLIME CRAMER Unavailable Unavailable + SLIME CRAMER Unavailable Unavailable + FERNY, EDISON Unavailable Unavailable + SLIME CRAMER Unavailable [address] + [address] [place] [address] FERNY, DARYA Unavailable Unavailable + [place] [address] UE Unavailable Unavailable Unavailable SLIME CRAMER Unavailable Unavailable + SLIME CRAMER Unavailable Unavailable + FERNY, EDISON Unavailable Unavailable + SLIME CRAMER Unavailable Unavailable + CRAMERSLIME DUBOIS Unavailable Unavailable + FERNY EDISON Unavailable Unavailable + SLIME CRAMER Unavailable [address] + [facility] [address] [place] [address] FERNY, DARYA Unavailable Unavailable + [place] [address] UE Unavailable Unavailable Unavailable SLIME CRAMER Unavailable Unavailable + SLIME CRAMER Unavailable Unavailable + FERNY, EDISON Unavailable Unavailable + SLIME CRAMER Unavailable Unavailable + SLIME CRAMER Unavailable Unavailable + FERNY, EDISON Unavailable Unavailable + SLIME CRAMER Unavailable [address] + [address] [place] [address] FERNY, DARYA Unavailable Unavailable + [place] [address] UE Unavailable Unavailable Unavailable SLIME CRAMER Unavailable [address] + [address] [address] FERNY, DARYA Unavailable Unavailable + [place] [address] UE Unavailable Unavailable Unavailable SLIME CRAMER Unavailable [address] + [address] [address] FERNY, DARYA Unavailable Unavailable + [place] [address] UE Unavailable Unavailable Unavailable SLIME CRAMER Unavailable [address] + [address] [address] FERNY, DARYA Unavailable Unavailable + [place] [address] UE Unavailable Unavailable Unavailable SLIME CRAMER Unavailable [address] + [address] [address] FERNY, DARYA Unavailable . + [place] . UE Unavailable Unavailable Unavailable BELA SLIME Unavailable [address] + [address] [address] FERNY, DARYA Unavailable . + [place] . UE Unavailable Unavailable Unavailable Care Team Providers Name Role Phone WILL JOHNS MD Attending Unavailable PHYSICIAN, NONE Primary Care Unavailable Annabel Thakkar MD Attending Unavailable PHYSICIAN, NONE Primary Care Unavailable DR. WOODY COPE DO Attending Unavailable PHYSICIAN, NONE Primary Care Unavailable DR. WOODY COPE DO Attending Unavailable PHYSICIAN, NONE Primary Care Unavailable WILL JOHNS MD Attending Unavailable PHYSICIAN, NONE Primary Care Unavailable WILL JOHNS MD Attending Unavailable RENATO PARKINSON, MS. KIMBERLY S. Primary Care Unavailable JESUS MCKEON DO Attending Unavailable RENATO PARKINSON, MS. KIMBERLY S. Primary Care Unavailable SANDHYA GAO Attending Unavailable RENATO PARKINSON, MS. KIMBERLY S. Primary Care Unavailable SANDHYA GAO Attending Unavailable RENATO PARKINSON, MS. KIMBERLY S. Primary Care Unavailable DR. WOODY COPE DO Attending Unavailable RENATO YOUTUBER, MS. KIMBERLY S. Primary Care Unavailable TAMMIE TAVAREZ MD Attending Unavailable RENATO YOUTUBER, MS. KIMBERLY S. Primary Care Unavailable Annabel Thakkar MD Attending Unavailable RENATO YOUTUBER, MS. KIMBERLY S. Primary Care Unavailable RENATO YOUTUBER, MS. KIMBERLY S. Attending Unavailable RENATO YOUTUBER, MS. KIMBERLY S. Primary Care Unavailable TAMMIE TAVAREZ MD Attending Unavailable RENATO YOUTUBER, MS. KIMBERLY S. Primary Care Unavailable TAMMIE TAVAREZ MD Attending Unavailable RENATO YOUTUBER, MS. KIMBERLY S. Primary Care Unavailable TAMMIE TAVAREZ MD Attending Unavailable RENATO YOUTUBER, MS. KIMBERLY S. Primary Care Unavailable GLENYS HORN Attending Unavailable RENATO YOUTUBER, MS. KIMBERLY S. Primary Care Unavailable RENATO YOUTUBER, MS. KIMBERLY S. Attending Unavailable RENATO YOUTUBER, MS. KIMBERLY S. Primary Care Unavailable PRISCA ANDRADE, DR. WOODY Dunn Attending Unavailable RENATO YOUTUBER, MS. KIMBERLY S. Primary Care Unavailable Annabel Thakkar MD Attending Unavailable RENATO YOUTUBER, MS. KIMBERLY S. Primary Care Unavailable DR ISAAC HUYNH Admitting Unavailable DR ISAAC HUYNH Attending Unavailable NO, DOCTOR ON Referring Unavailable DR ISAAC HUYNH Primary Care Unavailable NO, DOCTOR ON Consulting Unavailable EDWARD ARCE DO Admitting Unavailable EDWARD ARCE DO Attending Unavailable EDWARD ARCE DO Primary Care Unavailable RENATO, KIMBERLY Referring Unavailable RENATO, KIMBERLY Consulting Unavailable PROVIDER, UNKNOWN Consulting Unavailable Primay Care Physicia, No Primary Care Unavailable Woody Fernandes Attending Unavailable Primay Care Physicia, No Primary Care Unavailable Jonatan Ross Attending Unavailable Primay Care Physicia, No Primary Care Unavailable Misael Rollins Attending Unavailable Primay Care Physicia, No Primary Care Unavailable Tommy Chavez Attending Unavailable Primay Care Physicia, No Primary Care Unavailable AJ WOOD Attending Unavailable Primay Care Physicia, No Primary Care Unavailable Woody Fernandes Attending Unavailable Primay Care Physicia, No Primary Care Unavailable Shelton Baca Attending Unavailable Primay Care Physicia, No Primary Care Unavailable Augustine Mendoza Attending Unavailable Vickey Mathews Attending Unavailable Renato, Kimberly SYSTEMS SPECIALIST-C Primary Care Unavailable Renato, Kimberly SYSTEMS SPECIALIST-C Primary Care Unavailable [facility] HospitalRebecca Attending Unavailable Everetts, Kimberly SYSTEMS SPECIALIST-C Primary Care Unavailable Kathleen Patiño Attending Unavailable Chante Gomez Attending Unavailable Chante Gomez Referring Unavailable Everetts, Kimberly SYSTEMS SPECIALIST-C Primary Care Unavailable Renato, Kimberly SYSTEMS SPECIALIST-C Primary Care Unavailable Southern, Rebecca Attending Unavailable Everetts, Kimberly SYSTEMS SPECIALIST-C Primary Care Unavailable Sherrill Barbosa Attending Unavailable Renato, Kimberly SYSTEMS SPECIALIST-C Primary Care Unavailable Fernando Garcia Attending Unavailable Renato, Kimberly SYSTEMS SPECIALIST-C Primary Care Unavailable Nevin Workman Attending Unavailable Renato, Kimberly SYSTEMS SPECIALIST-C Primary Care Unavailable Aaron Casas Attending Unavailable Everetts, Kimberly SYSTEMS SPECIALIST-C Primary Care Unavailable Basil He Attending Unavailable Everetts, Kimberly SYSTEMS SPECIALIST-C Primary Care Unavailable Basil Bourgeois Attending Unavailable Renato, Kimberly SYSTEMS SPECIALIST-C Primary Care Unavailable Rebecca Valenzuela Attending Unavailable PROBLEMS PROBLEMS DATE TYPE CONDITION / CODE ATTENDING STATUS SOURCE 06/18/2018 Unknown J15.9 - Chante Gomez Active [facility] Unspecified [facility] pneumonia / Repository J15.9(ICD-10) 05/21/2018 Admitting Fever, RENATO PARKINSON, MS. Active [facility] Diagnosis unspecified / KIMBERLY S. [facility] [place] R50.9(ICD-10) Repository PROCEDURES PROCEDURES No Procedure Records FoundRESULTS RESULTS EMERGENCY DEPARTMENT Observed: 07/09/2018 Status: F Source: [place] SUMMARY 4:04 PM [facility] REPOSITORY [facility] Medical Records Department [address] [place] [address] Emergency Department Summary 07/06/18 1911 MR#: [id number] Acct: [id number] Name: DANIELA CRAMER Rep #: [id number] : 1975 42 From: Sherrill Barbosa DO PCP: Kimberly Lindsay Status: DEP ER - ER Visit Summary Date of Service: 07/06/18 Chief Complaint: [Depression and suicidal ideation] History of Present Illness: The patient is a 42 F [presents the emergency department complaint of feeling depressed over the last 2 days. Patient states that she has a plan on overdosing on all her medications. Patient's had increased stressors at home related to her ex- who is a lives with her and recently the ex- son moved in with them as well. Patient denies any auditory or visual hallucinations. Patient denies feeling homicidal. Patient's last hospitalization for psychiatric issues worse more than 2 years ago. Patient also complains of a migraine headache that she has had for couple of days. Patient states she gets frequent headaches and this headache is typical of her migraines. Patient describes it as diffuse and throbbing. She complains of photophobia and nausea. She said no vomiting. She denies any falls or head injuries. She denies any significant other illnesses.] Physical Examination: [HEENT-PERRLA, EOMI. Cranial nerves II through XII grossly intact. TMs clear. Mucous membranes moist. No adenopathy. Cardiovascular-regular rate and rhythm without murmur or ectopy Lungs-clear to auscultation, chest wall stable without crepitus or subcu emphysema Abdomen-normoactive bowel sounds, soft, nontender, no rebound or rigidity, no peritoneal signs. Extremities-intact 4, normal range of motion, normal pulses, atraumatic] Test Results: [CBC with differential showed a white count of 12.9, hemoglobin 14.6, hematocrit 45, placed 250. Chemistries unremarkable. Toxicology screen positive for marijuana. Alcohol was negative.] Emergency Department Course and Treatment: Case was discussed with crisis who presented to the emergency department to evaluate patient [] Treatment Plan: [Plan will be to transfer to psychiatric facility once evaluation by crisis complete] Disposition: [Pending evaluation by crisis] Impression: [Depression Suicidal ideation] This note was generated with AthletePath software. It may contain incorrect words, spelling, and punctuation that were not noted in review of the chart prior to signing <Sherrill Barbosa - Last Filed: 07/07/18 00:13> - ER Visit Summary Date of Service: 07/07/18 Chief Complaint: [] History of Present Illness: The patient is a 42 F [] Physical Examination: [] Test Results: [] Emergency Department Course and Treatment: Patient signed out to me. Has been stable. Medically cleared. Evaluated by P accepted to [facility] under service of Wilfredo Chaparro Treatment Plan: [] Disposition: transfer [place] Impression: Depression with suicidal ideation This note was generated with Dragon dictation software. It may contain incorrect words, spelling, and punctuation that were not noted in review of the chart prior to signing <Shelton Baca - Last Filed: 07/07/18 03:02> ED Disposition <Sherrill Barbosa - Last Filed: 07/07/18 00:13> <Shelton Baca - Last Filed: 07/07/18 03:02> - Plan for ED Patient: Disposition: Psychiatric Hospital or Unit Chief Complaint: Suicidal Diagnosis: Depression with suicidal ideation Referrals: Kimberly Gross NP-C [Primary Care Provider] - What to do if you have Problems For any increased pain, shortness of breath, bleeding, nausea or vomiting, chest pain, or any unexpected problems, contact your Primary Care Provider. Call [facility] ([phone]) or report to the closest Emergency Room. Call 911 if necessary. 07/09/18 1604 <Electronically signed by Sherrill Barbosa DO> Date Virginiaus Schreiberedward DO 07/07/18 0303<Electronically signed by Shelton Baca DO> Cosigner Signature (If Indicated): Date Shelton Baca DO CC: Kimberly STOVER URINE DRUG SCREEN Collected: 07/06/2018 Status: F Source: [place] (VISTA) 7:00 PM [facility] REPOSITORY TYPE CODE TESTS RESULT OUT OF RANGE REFERENCE UNITS LAB L505.0075 TO BE Normal CONFIRMED Result Comment: CONFIRMATORY TESTING FOR ALL POSITIVE URINE DRUG SCREEN RESULTS WILL ONLY BE SENT OUT UPON PHYSICIAN ORDER. VISTA Urine Drug Screen methods provide only preliminary analytical test results. A more specific alternate chemical method must be used in order to obtain a confirmed analytical result. Gas chromatography/mass spectrometery (GC/MS) is the preferred confirmatory method. Clinical consideration and professional judgement should be applied to any drug of abuse test result, particularly when preliminary positive results are used. URINE TCA TESTING MUST BE ORDERED SEPARATELY. USE TEST MNEMONIC: [facility] LAB L505.5005 VISTA UDS PH 7 Normal LAB L505.5015 <1000 ng/mL AMPHETAMINES Normal NEGATIVE LAB L505.5025 < 200 ng/mL BARBITIURATES Normal NEGATIVE LAB L505.5035 < 200 ng/mL BENZODIAZIPINE Normal NEGATIVE LAB L505.5045 < 300 ng/mL COCAINE Normal NEGATIVE LAB L505.5055 < 500 ng/mL ECSTACY Normal NEGATIVE LAB L505.5065 < 300 ng/mL METHADONE Normal NEGATIVE LAB L505.5075 < 300 ng/mL OPIATES Normal NEGATIVE LAB L505.5085 < 25 ng/mL PCP Normal NEGATIVE LAB L505.5095 < 50 High ng/mL THC POSITIVE Performed By: #### L505.5000, L700.6800 #### [facility] [address] [place], [address] CBC W/DIFF, AUTOMATED Collected: 07/06/2018 Status: F Source: [place] 6:58 PM [facility] REPOSITORY TYPE CODE TESTS RESULT OUT OF RANGE REFERENCE UNITS LAB L100.1000 4.4-11.0 K/mm3 High WBC 12.9 LAB L100.1200 4.2-5.4 M/mm3 Normal RBC 4.83 LAB L100.1300 12.0-15.0 g/dl Normal HGB 14.6 LAB L100.1400 37-47 % Normal HCT 44.9 LAB L100.1500 81-99 fL Normal MCV 93.0 LAB L100.1600 27.0-32.0 pg Normal MCH 30.2 LAB L100.1700 32-36 g/gl Normal MCHC 32.5 LAB L100.1810 11.6-14.6 % Normal RDW CV 13.5 LAB L100.1820 35.1-43.9 fl High RDW SD 46.0 LAB L100.1900 150-450 K/mm3 Normal PLT 250 LAB L100.2000 6.2-12.0 fl Normal MPV 9.7 LAB L100.2100 47-70 % High NEUT% 73.6 LAB L100.2200 19-41 % Low LY% 17.6 LAB L100.2300 0-10 % Normal MONO% 7.5 LAB L100.2400 0-5 % Normal EO% 0.8 LAB L100.2500 0-1 % Normal BASO% 0.2 LAB L100.2550 0.0-0.9 % Normal IM GRAN % 0.300 Result Comment: IG% - Immature Granulocytes (promyelocytes, myelocytes and metamyelocytes) > 1% indicates that a LEFT SHIFT is Present. LAB L100.2620 2.0-7.7 X10 3/uL High Absolute Neut 9.5 LAB L100.2720 0.83-4.51 X10 3/ul Normal Absolute Lymph 2.26 Performed By: #### L100.0100 #### [facility] [address] [facility]. [place], [place], [address] ,SERUM,HCG QUALI. Collected: Status: C Source: WIL[place] 07/06/2018 6:58 PM [facility] REPOSITORY TYPE CODE TESTS RESULT OUT OF REFERENCE UNITS RANGE LAB L700.6700 =>Qualitative mIU/mL Normal HCG Qual < 1 triggr LAB L700.7000 0-9 Nonpreg Negative Normal HCGSQUAL NEGATIVE Performed By: #### L505.5000, L700.6800 #### [facility] [address] [facility]. [place], [place], [address] BASIC METABOLIC Collected: 07/06/2018 Status: F Source: [place] PROFILE (BMP) 6:58 PM [facility] REPOSITORY TYPE CODE TESTS RESULT OUT OF RANGE REFERENCE UNITS LAB L501.0100 74-106 mg/dL Normal GLU 95 Result Comment: Please note revised GLUCOSE reference range effective 2017. LAB L501.1000 7-18 mg/dL Normal BUN 9 LAB L501.1100 0.55-1.02 mg/dL Normal CREAT,SERUM 0.83 Result Comment: The validity of the calculated GFR AND GFRAA in patients over 70 years has not been determined. Clinical correlation is essential. LAB L501.1110 >60 mL/min Normal EST GFR 81 Result Comment: Non- GFR Calc LAB L501.1115 >60 mL/min Normal EST GFR - AA 98 Result Comment: GFR Calc LAB L501.1255 ml/min Normal Estimated CRCL 77.80 LAB L501.1300 10-20 RATIO Normal BUN/CRE 10.9 LAB L501.2200 8.5-10 mg/dL Normal .1 CA 9.3 LAB L501.5300 136-14 mmol/L Normal 5 NA 140 LAB L501.5600 3.5-5. mmol/L Normal 1 K 4.1 LAB L501.5900 98-107 mmol/L High CL 108 LAB L501.6100 21.0-3 mmol/L Normal 2.0 CO2 23.0 LAB L501.6200 5-15 Normal GAP 9 Performed By: #### L500.2500, L501.9100 #### [facility] [address] [facility] [place], [address] ALCOHOL, BLOOD Collected: 07/06/2018 Status: F Source: W[place] (MEDICAL)-SERUM 6:58 PM [facility] REPOSITORY TYPE CODE TESTS RESULT OUT OF RANGE REFERENCE UNITS LAB L501.9100 mg/dL Normal SERUM 19.0 ETOH Result Comment: The serum:whole blood ethanol ratio is approximately 1.14 and varies slightly with hematocrit. Medical Alcohol reference interval and critical value in non-tolerant individuals; 50 - 100 Impairment 100 Intoxication 100 - 250 Severe Poisoning 250 - 400 Deep/possible fatal coma Performed By: #### L500.2500, L501.9100 #### [facility] [address] [facility] [place], [address] EMERGENCY DEPARTMENT Observed: 07/05/2018 Status: F Source: [place] SUMMARY 7:24 PM [facility] REPOSITORY [facility] Medical Records Department [address] [place] [address] Emergency Department Summary 07/05/18 1817 MR#: [id number] Acct: [id number] Name: DANIELA CRAMER Rep #: [id number] : 1975 42 From: Rebecca Valenzuela MD PCP: Kimberly Lindsay Status: REG ER - ER Visit Summary Date of Service: 07/05/18 Chief Complaint: Depression History of Present Illness: The patient is a 42 F presenting with depression. Patient states that she has been feeling overwhelmed for the past month. She states that her ex's son who lives with has been causing her stress. She states that she has been wishing that she is not here. She has no current suicide plan. She has been seeing a counselor at the counseling center. Her next appointment is on Thursday. Recently her Lamictal was increased from 100 mg to 150 mg. She has a history of depression, bipolar, anxiety, PTSD. She admits to marijuana use. Denies alcohol use. Denies other complaints. Physical Examination: Vitals are stable. Patient is afebrile. Alert no acute distress. HEENT exam is unremarkable. Neck is supple. Lungs are clear and equal bilaterally. Heart is regular rate and rhythm. Abdomen is soft nontender nondistended. Extremities are unremarkable. Skin is warm and dry. No focal neurologic deficit. Depressed affect Remainder of exam is unremarkable. Emergency Department Course and Treatment: BMP unremarkable. HCG negative. Alcohol negative. Patient has no current suicidal ideation. Social work discussed at length with the patient and she agreed to safety plan. She will follow-up with counseling center this week. She is advised to return to ED for any worsening complaints. Disposition: Discharge home Impression: Depression This note was generated with QuarterSpot dictation software. It may contain incorrect words, spelling, and punctuation that were not noted in review of the chart prior to signing ED Disposition - Plan for ED Patient: Chief Complaint: Suicidal Instructions: ED Depression Referrals: Counseling,Center [GROUP OF PHYSICIANS] - Kimberly Gross NP-C [Primary Care Provider] - What to do if you have Problems For any increased pain, shortness of breath, bleeding, nausea or vomiting, chest pain, or any unexpected problems, contact your Primary Care Provider. Call [facility] ([phone]) or report to the closest Emergency Room. Call 911 if necessary. 07/05/181923 <Electronically signed by Rebecca Valenzuela MD> Date Rebecca Valenzuela MD Cosigner Signature (If Indicated): Date CC: Kimberly STOVER DISCHARGE INSTRUCTION Observed: 07/05/2018 Status: F Source: [place] 6:47 PM [facility] REPOSITORY [facility] Medical Records Department [address] [place] [address] Discharge Instruction 07/05/181846 MR#: [id number] Acct: [id number] Name: DANIELA CRAMER Rep #: [id number] : 1975 42 From: Rebecca Valenzuela MD PCP: Kimberly Lindsay Status: REG ER ED Disposition - Plan for ED Patient: Chief Complaint: Suicidal Instructions: ED Depression Referrals: Kimberly Gross NP-C [Primary Care Provider] - Counseling,Center [GROUP OF PHYSICIANS] - What to do if you have Problems For any increased pain, shortness of breath, bleeding, nausea or vomiting, chest pain, or any unexpected problems, contact your Primary Care Provider. Call [facility] ([phone]) or report to the closest Emergency Room. Call 911 if necessary. 07/05/181846 <Electronically signed by Rebecca Valenzuela MD> Date Rebecca Valenzuela MD Cosigner Signature (If Indicated): Date CC: Kimberly STOVER BASIC METABOLIC Collected: 07/05/2018 Status: F Source: [place] PROFILE (BMP) 5:55 PM [facility] REPOSITORY TYPE CODE TESTS RESULT OUT OF RANGE REFERENCE UNITS LAB L501.0100 74-106 mg/dL Normal GLU 99 Result Comment: Please note revised GLUCOSE reference range effective 2017. LAB L501.1000 7-18 mg/dL Normal BUN 7 LAB L501.1100 0.55-1.02 mg/dL Normal CREAT,SERUM 0.80 Result Comment: The validity of the calculated GFR AND GFRAA in patients over 70 years has not been determined. Clinical correlation is essential. LAB L501.1110 >60 mL/min Normal EST GFR 85 Result Comment: Non- GFR Calc LAB L501.1115 >60 mL/min Normal EST GFR - AA 102 Result Comment: GFR Calc LAB L501.1255 ml/min Normal Estimated CRCL 80.72 LAB L501.1300 10-20 RATIO Low BUN/CRE 8.8 LAB L501.2200 8.5-10 mg/dL Normal .1 CA 8.8 LAB L501.5300 136-14 mmol/L Normal 5 NA 140 LAB L501.5600 3.5-5. mmol/L Normal 1 K 4.1 LAB L501.5900 98-107 mmol/L Normal CL 106 LAB L501.6100 21.0-3 mmol/L Normal 2.0 CO2 26.0 LAB L501.6200 5-15 Normal GAP 8 Performed By: #### L500.2500 #### [facility] [address] [place], [place], [address] ALCOHOL, BLOOD Collected: 07/05/2018 Status: F Source: [place] (MEDICAL)-SERUM 5:55 PM [facility] REPOSITORY TYPE CODE TESTS RESULT OUT OF RANGE REFERENCE UNITS LAB L501.9100 mg/dL Normal SERUM < 3.0 ETOH Result Comment: The serum:whole blood ethanol ratio is approximately 1.14 and varies slightly with hematocrit. Medical Alcohol reference interval and critical value in non-tolerant individuals; 50 - 100 Impairment 100 Intoxication 100 - 250 Severe Poisoning 250 - 400 Deep/possible fatal coma Performed By: #### L501.9100 #### [facility] [address] [place], [place], [address] ,SERUM,HCG QUALI. Collected: Status: F Source: [place] 07/05/2018 5:55 PM [facility] REPOSITORY TYPE CODE TESTS RESULT OUT OF REFERENCE UNITS RANGE LAB L700.6700 =>Qualitative mIU/mL Normal HCG Qual < 1 triggr LAB L700.7000 0-9 Nonpreg Negative Normal HCGSQUAL NEGATIVE Performed By: #### L700.6800 #### [facility] [address] [place], [place], [address] CHEST PA AND LATERAL Observed: 06/18/2018 Status: F Source: [place] 12:57 PM [facility] REPOSITORY [facility] Imaging Services [address] [place] [address] Chest PA and Lateral MR#: [id number] Acct: [id number] Name: DANIELA CRAMER Rep #: [id number] : 1975 F 42 From: Fareed Ivan MD PCP: Kimberly Lindsay Status: REG CLI Study: Chest PA and Lateral Date of Exam: 06/18/18 Exam# [id number] Ordering Dr: Chante Gomez HISTORY: COUGH AND PNEUMONIA x2-3 WEEKS EXAM:XR Chest 2 Views: COMPARISON: 06/03/2018 and 04/26/2018 FINDINGS: With comparison previous, no significant change. Normal heart size. No vascular congestion, pleural effusion, or acute pulmonary infiltration. No pneumothorax. Small hiatal hernia. IMPRESSION.: 1. No acute disease or significant change. 2. Small hiatal hernia. at 0335 Reported and signed by: Fareed Ivan MD Electronically Signed: Fareed Ivan, at 3:34 EST Tel , Service support , RAD/Chest PA and Lateral CC: JOLANTA Gomez; Kimberly STOVER Veterinary Nurse: Signed E2 Collected: 06/07/2018 Status: F Source: [facility] 4:04 PM [facility] EMERGENCY DEPARTMENT REPOSITORY TYPE CODE TESTS RESULT OUT OF REFERENCE UNITS RANGE LAB E2(LOINC) pg/mL Estradiol Level 219 Result Comment: Adult Female E2 Reference Ranges (06/27/11): Follicular phase 21 - 165 pg/mL Midcycle 50 - 367 pg/mL Luteal phase 40 - 259 pg/mL Post menopausal 11 - 58 pg/mL Performed By: #### E2, PROG, TESTO #### [place] [address] PROG Collected: 06/07/2018 Status: F Source: [facility] 4:04 PM [facility] EMERGENCY DEPARTMENT REPOSITORY TYPE CODE TESTS RESULT OUT OF REFERENCE UNITS RANGE LAB PROG(LOINC ng/mL ) Progesterone Level 2.5 Result Comment: Adult Female Progesterone Reference Ranges (05/23/99): Follicular phase 0.2 - 1.4 ng/mL Luteal phase 3.3 - 25.6 ng/mL Mid-Luteal phase 4.4 - 28.0 ng/mL Postmenopausal 0.2 - 0.7 ng/ml Adult Male: 0.3 - 1.2 ng/mL Performed By: #### E2, PROG, TESTO #### [address] [address] TESTO Collected: 06/07/2018 Status: F Source: [facility] 4:04 PM [facility] REPOSITORY TYPE CODE TESTS RESULT OUT OF REFERENCE UNITS RANGE LAB TESTO(LOIN 14.0-76.0 ng/dL C) Testosterone Lvl 61.4 Performed By: #### E2, PROG, TESTO #### [address] [address] 12 LEAD ELECTROCARDIOGRAM Observed: 06/04/2018 Status: F Source: [place] 12:00 PM [facility] REPOSITORY [facility] Cardiovascular Services [address] [place] [address] 12 Lead EKG 06/03/182136 MR#: [id number] Acct: [id number] Name: DANIELA CRAMER Rep #: [id number] : 1975 42 From: Santosh Callahan MD Attending Dr: Status: DEP ER Ordering Dr: Kathleen Patiño MD Date: 06/03/18 Location: ED Sex: F C Admitted: Test Reason : CP/SOB Blood Pressure : / mmHG Vent. Rate : 075 BPM Atrial Rate : 075 BPM P-R Int : 140 ms QRS Dur : 084 ms QT Int : 370 ms P-R-T Axes : 025 061 051 degrees QTc Int : 413 ms Normal sinus rhythm Normal ECG Confirmed by SANTOSH CALLAHAN MD ([id number]), content editor ROGER MURO ([id number]) on 06/04/2018 12:00:22 PM Referred By: DES Confirmed By:SANTOSH CALLAHAN MD 06/04/18 1200 Date Santosh Callahan MD CC: MD Suzy Patiño; Kimberly STOVER Signed EMERGENCY DEPARTMENT Observed: 06/03/2018 Status: F Source: [place] SUMMARY 11:19 PM [facility] REPOSITORY [facility] Medical Records Department [address] [place] [address] Emergency Department Summary 06/03/18 2153 MR#: [id number] Acct: [id number] Name: DANIELA CRAMER Rep #: [id number] : 1975 42 From: Kathleen Patiño MD PCP: Kimberly Lindsay Status: DEP ER - ER Visit Summary Date of Service: 06/03/18 Chief Complaint: [] Mathias a pop in the upper back lifting boxes yesterday History of Present Illness: The patient is a 42 F [] fibromyalgia chronic headaches other chronic pain syndrome conditions she is having trouble describing, reports she was lifting boxes while she was moving and she felt a strange sensation in her upper back that felt like a pop, and then she also describes intermittent pain in her chest. She did not have any direct trauma to her body was all related to her bending over and lifting heavy box, there is been no fever no cough no numbness weakness or paresthesias normal bowel bladder habits, she has no history of NJ PE or DVT she is taking Lyrica for her fibromyalgia and other painful syndromes Physical Examination: [] 114/59 9097 on room air General, no distress resting comfortably HEENT is generally unremarkable The neck is supple no adenopathy Cardiovascular, regular rate and rhythm she complains of pain to the right side of her chest, she complains of the pain to the upper back in a diffuse fashion but not specific to any dermatome or region she has no C-spine T-spine pain, she has full range of motion of her upper extremities and lower extremities without pain when she turns her torso or leans forward she has discomfort to that part of her body Lungs, clear bilateral Abdomen, soft nontender Extremities, no clubbing cyanosis or edema Neurologic, awake alert answering questions appropriately moving all 4 extremities She is a very large individual she has no history of easily fractured bones or ribs no direct trauma, there is clearly a mechanical component to all of the above her EKG shows a sinus rhythm nothing acute screening labs are obtained Test Results: [] Emergency Department Course and Treatment: [] Labs are unremarkable discussed all the above with her she is comfortable discharge home again she has had this for 2 days I explained that we cannot further manage her chronic painful conditions such as fibromyalgia she take Tylenol her Lyrica and other udsq-hon-pfggnzh meds and see her outpatient providers tomorrow Treatment Plan: [] Disposition: [] Home stable Impression: [] Upper back and right-sided chest pain after lifting heavy box This note was generated with [employer] software. It may contain incorrect words, spelling, and punctuation that were not noted in review of the chart prior to signing ED Disposition - Plan for ED Patient: Chief Complaint: Shortness of Breath Referrals: Kimberly Gross, SYSTEMS SPECIALIST-C [Primary Care Provider] - What to do if you have Problems For any increased pain, shortness of breath, bleeding, nausea or vomiting, chest pain, or any unexpected problems, contact your Primary Care Provider. Call [email or web address] ([phone]) or report to the closest Emergency Room. Call 911 if necessary. 06/03/18 2319 <Electronically signed by Kathleen Patiño MD> Date Kathleen Patiño MD Cosigner Signature (If Indicated): Date CC: Kimberly Gross SYSTEMS SPECIALIST-C DISCHARGE INSTRUCTION Observed: 06/03/2018 Status: F Source: [place] 9:56 PM [facility] REPOSITORY [facility] Medical Records Department [address] [place] [address] Discharge Instruction 06/03/18 2155 MR#: [id number] Acct: [id number] Name: BELADANIELA S Rep #: [id number] : 1975 42 From: Kathleen Patiño MD PCP: Kimberly Lindsay Status: REG ER ED Disposition - Plan for ED Patient: Chief Complaint: Shortness of Breath Instructions: ED Chest Pain Atypical Unkn Cause, ED Spasm Back No Trauma Referrals: Kimberly Gross NP-C [Primary Care Provider] - What to do if you have Problems For any increased pain, shortness of breath, bleeding, nausea or vomiting, chest pain, or any unexpected problems, contact your Primary Care Provider. Call [facility] ([phone]) or report to the closest Emergency Room. Call 911 if necessary. 06/03/182155 <Electronically signed by Kathleen Patiño MD> Date Kathleen Patiño MD Cosigner Signature (If Indicated): Date CC: Kimberly STOVER CBC W/DIFF, AUTOMATED Collected: 06/03/2018 Status: F Source: [place] 9:52 PM [facility] REPOSITORY TYPE CODE TESTS RESULT OUT OF RANGE REFERENCE UNITS LAB L100.1000 4.4-11.0 K/mm3 Normal WBC 10.4 LAB L100.1200 4.2-5.4 M/mm3 Normal RBC 4.48 LAB L100.1300 12.0-15.0 g/dl Normal HGB 13.6 LAB L100.1400 37-47 % Normal HCT 40.9 LAB L100.1500 81-99 fL Normal MCV 91.3 LAB L100.1600 27.0-32.0 pg Normal MCH 30.4 LAB L100.1700 32-36 g/gl Normal MCHC 33.3 LAB L100.1810 11.6-14.6 % Normal RDW CV 13.4 LAB L100.1820 35.1-43.9 fl High RDW SD 44.3 LAB L100.1900 150-450 K/mm3 Normal PLT 236 LAB L100.2000 6.2-12.0 fl Normal MPV 9.2 LAB L100.2100 47-70 % Normal NEUT% 60.1 LAB L100.2200 19-41 % Normal LY% 27.3 LAB L100.2300 0-10 % High MONO% 10.2 LAB L100.2400 0-5 % Normal EO% 1.8 LAB L100.2500 0-1 % Normal BASO% 0.3 LAB L100.2550 0.0-0.9 % Normal IM GRAN % 0.300 Result Comment: IG% - Immature Granulocytes (promyelocytes, myelocytes and metamyelocytes) > 1% indicates that a LEFT SHIFT is Present. LAB L100.2620 2.0-7.7 X10 3/uL Normal Absolute Neut 6.3 LAB L100.2720 0.83-4.51 X10 3/ul Normal Absolute Lymph 2.85 Performed By: #### L100.0100 #### [facility] [address] [place], [address] BASIC METABOLIC Collected: 06/03/2018 Status: F Source: [place] PROFILE (BMP) 9:52 PM [facility] REPOSITORY TYPE CODE TESTS RESULT OUT OF RANGE REFERENCE UNITS LAB L501.0100 74-106 mg/dL High GLU 107 Result Comment: Fasting Glucose result from 100 to 125 mg/dL suggests IMPAIRED HOMEOSTASIS per A.D.A. criteria. Please note revised GLUCOSE reference range effective 2017. LAB L501.1000 7-18 mg/dL Normal BUN 10 LAB L501.1100 0.55-1.02 mg/dL Normal CREAT,SERUM 0.75 Result Comment: The validity of the calculated GFR AND GFRAA in patients over 70 years has not been determined. Clinical correlation is essential. LAB L501.1110 >60 mL/min Normal EST GFR 91 Result Comment: Non- GFR Calc LAB L501.1115 >60 mL/min Normal EST GFR - AA 110 Result Comment: GFR Calc LAB L501.1255 ml/min Normal Estimated CRCL 89.72 LAB L501.1300 10-20 RATIO Normal BUN/CRE 13.4 LAB L501.2200 8.5-10 mg/dL Normal .1 CA 8.9 LAB L501.5300 136-14 mmol/L Normal 5 NA 137 LAB L501.5600 3.5-5. mmol/L Normal 1 K 4.1 Result Comment: Moderate Hemolysis, Result may be falsely increased. LAB L501.5900 98-107 mmol/L High CL 108 LAB L501.6100 21.0-32.0 mmol/L Normal CO2 23.0 LAB L501.6200 5-15 Normal 6 GAP Performed By: #### L500.2500, L501.4010 #### [facility] [address] [place], [address] TROPONIN-I Collected: 06/03/2018 Status: F Source: [place] 9:52 PM [facility] REPOSITORY TYPE CODE TESTS RESULT OUT OF RANGE REFERENCE UNITS LAB L501.4010 <0.045 ng/mL Normal < 0.015 TROPONIN-I Result Comment: TROPONIN-I EXPECTED VALUES <0.045 Negative 0.045 - 0.590 Consistent with Cardiac Damage > OR = 0.600 Critical Value Not every elevated troponin is indicative of NJ. These values should be used with clinical judgement in examining the patient's clinical picture for diagnosis. To establish a diagnosis of NJ versus myocardial injury, there must be a demonstrated rise and/or fall in the troponin values, in addition to ischemic symptoms, EKG changes, new regional wall motion abnormality, and/or angiographical evidence. PLEASE NOTE: REFERENCE RANGES EDITED 17 Performed By: #### L500.2500, L501.4010 #### [facility] [address] [place], [place], [address] BNP,B-TYPE NATRIURETIC Collected: 06/03/2018 Status: F Source: [place] PEPTIDE 9:52 PM [facility] REPOSITORY TYPE CODE TESTS RESULT OUT OF RANGE REFERENCE UNITS LAB L503.6620 0-100 pg/mL Normal B-TYPE 48.1 CRISTIAN PEP Performed By: #### L503.6620 #### [facility] [address] [facility] [place], [place], [address] CHEST 1 VIEW Observed: 06/03/2018 Status: F Source: [place] (PORTABLE) 9:44 PM [facility] REPOSITORY [facility] Imaging Services [address] [place] [address] Chest 1 View (Portable) MR#: [id number] Acct: [id number] Name: DANIELA CRAMER Rep #: [id number] : 1975 F 42 From: Aj Shoemaker MD PCP: Kimberly Lindsay Status: REG ER Study: Chest 1 View (Portable) Date of Exam: 06/03/18 Exam# [id number] Ordering Dr: Kathleen Patiño MD STUDY: X-RAY CHEST REASON FOR EXAM: Female, 42 years old. Shortness of breath TECHNIQUE: AP portable view of the chest. COMPARISON: April 26, 2018. FINDINGS: The lungs are clear and expanded. There is no demonstrated pleural abnormality. Normal size heart. There is retrocardiac hiatal hernia. Normal visualized pulmonary arteries. Normal visualized aortic arch and descending thoracic aorta. Normal visualized thoracic spine. Normal visualized ribs, clavicles, and shoulders. There is no demonstrated abnormality of the visualized soft tissue structures of the upper abdomen. RAD/Chest 1 View (Portable) IMPRESSION: Hiatal hernia. Lungs are clear. Electronically Signed: Aj Shoemaker MD at 22:36 EST , Service support , CC: MD Suzy Patiño; Kimberly STOVER Veterinary Nurse: Signed CBC Collected: 05/21/2018 Status: F Source: [facility] 10:57 AM [facility] EMERGENCY DEPARTMENT REPOSITORY TYPE CODE TESTS RESULT OUT OF REFERENCE UNITS RANGE LAB WBC(LOINC) 4.60-10.80 10 3/mcL High WBC 13.10 LAB RBCCT(LOINC 4.20-5.40 10 6/mcL ) RBC 4.87 LAB HGB(LOINC) 12.0-16.0 G/dL Hgb 14.6 LAB HCT(LOINC) 37.0-47.0 % Hct 44.5 LAB MCV(LOINC) 80.0-94.0 fL MCV 91.4 LAB MCH(LOINC) 27.0-31.2 pg MCH 29.9 LAB MCHC(LOINC) 33.0-37.0 G/dL Low MCHC 32.7 LAB RDW(LOINC) 11.5-14.5 % RDW 14.1 LAB PLT(LOINC) 130-400 10 3/mcL Platelet 318 LAB MPV(LOINC) 7.4-10.4 fL MPV 8.4 Performed By: #### CBC, ADIFF, ANEU #### [address] [address] .AUTO DIFF Collected: 05/21/2018 Status: F Source: [facility] 10:57 AM [facility] EMERGENCY DEPARTMENT REPOSITORY TYPE CODE TESTS RESULT OUT OF REFERENCE UNITS RANGE LAB TIFFANIE(LOINC) 37.0-80.0 % Neutrophil % 64.5 LAB LYM(LOINC) 10.0-50.0 % Lymphocyte % 23.9 LAB MON(LOINC) 1.7-13.0 % Monocyte % 8.9 LAB EO(LOINC) 0.0-7.0 % Eosinophil % 2.1 LAB BAS(LOINC) 0.0-2.5 % Basophil % 0.6 LAB ABLYM(LOIN 0.77-3.85 10 3/mcL C) Lymphocyte, 3.10 Absolute LAB ARIELLE(LOINC 0.15-1.00 10 3/mcL ) High Monocyte, 1.20 Absolute LAB AEOS(LOINC 0.00-0.40 10 3/mcL ) Eosinophil, 0.30 Absolute LAB ABAS(LOINC 0.00-0.19 10 3/mcL ) Basophil, 0.10 Absolute Performed By: #### CBC, ADIFF, ANEU #### [address] [address] .NEUABS Collected: 05/21/2018 Status: F Source: [facility] 10:57 AM [facility] EMERGENCY DEPARTMENT REPOSITORY TYPE CODE TESTS RESULT OUT OF REFERENCE UNITS RANGE LAB ANEU(LOINC) 2.85-6.16 10 3/mcL High Neutrophil, 8.40 Absolute Performed By: #### CBC, ADIFF, ANEU #### [address] [address] DISCHARGE INSTRUCTION Observed: 05/02/2018 Status: F Source: [place] 7:18 PM [facility] REPOSITORY [facility] Medical Records Department [address] [place] [address] Discharge Instruction 05/02/181916 MR#: [id number] Acct: [id number] Name: DANIELA CRAMER Rep #: [id number] : 1975 42 From: Rebecca Valenzuela MD PCP: Kimberly Lindsay Status: REG ER ED Disposition - Plan for ED Patient: Chief Complaint: Headache Instructions: ED Headache Migraine Referrals: Kimberly Gross NP-C [Primary Care Provider] - What to do if you have Problems For any increased pain, shortness of breath, bleeding, nausea or vomiting, chest pain, or any unexpected problems, contact your Primary Care Provider. Call [email or web address] ([phone]) or report to the closest Emergency Room. Call 911 if necessary. 05/02/181917 <Electronically signed by Rebecca Valenzuela MD> Date Rebecca Valenzuela MD Cosigner Signature (If Indicated): Date CC: Kimberly STOVER EMERGENCY DEPARTMENT Observed: 05/02/2018 Status: F Source: [place] SUMMARY 7:17 PM [facility] REPOSITORY [facility] Medical Records Department [address] [place] [address] Emergency Department Summary 05/02/188 MR#: [id number] Acct: [id number] Name: DANIELA CRAMER Rep #: [id number] : 1975 42 From: Rebecca Valenzuela MD PCP: Kimberly Lindsay Status: REG ER - ER Visit Summary Date of Service: 05/02/18 Chief Complaint: Headache History of Present Illness: The patient is a 42 F presenting with headache. She states this started gradually approximately 1 week ago. She has tried Excedrin at home. She complains of photophobia. She has nausea with no vomiting. She denies fever. This is similar to her previous migraines. No recent head trauma. No other complaints. Physical Examination: Vitals are stable. Patient is afebrile. Alert no acute distress. HEENT exam is unremarkable. Neck is supple. No meningismus Lungs are clear and equal bilaterally. Heart is regular rate and rhythm. Extremities are unremarkable. Skin is warm and dry. No focal neurologic deficit. Normal strength medication Remainder of exam is unremarkable. Emergency Department Course and Treatment: Patient was given Compazine, Benadryl, Toradol IM. On reevaluation, she is feeling improved. She will be discharged. She is advised to follow-up with her primary care physician. She is advised to return to ED for worsening complaints. Disposition: Discharge home Impression: Headache This note was generated with [employer] dictation software. It may contain incorrect words, spelling, and punctuation that were not noted in review of the chart prior to signing ED Disposition - Plan for ED Patient: Chief Complaint: Headache Referrals: Kimberly Gross NP-C [Primary Care Provider] - What to do if you have Problems For any increased pain, shortness of breath, bleeding, nausea or vomiting, chest pain, or any unexpected problems, contact your Primary Care Provider. Call [facility] ([phone]) or report to the closest Emergency Room. Call 911 if necessary. 05/02/181916 <Electronically signed by Rebecca Valenzuela MD> Date Rebecca Valenzuela MD Cosigner Signature (If Indicated): Date CC: Kimberly STOVER EMERGENCY DEPARTMENT Observed: 04/27/2018 Status: F Source: [place] SUMMARY 1:12 AM [facility] REPOSITORY [facility] Medical Records Department [address] [place] [address] Emergency Department Summary 04/26/18 2136 MR#: [id number] Acct: [id number] Name: DANIELA CRAMER Rep #: [id number] : 1975 42 From: Basil Bourgeois DO PCP: Kimberly Lindsay Status: DEP ER - ER Visit Summary Date of Service: 04/26/18 Chief Complaint: Cough History of Present Illness: The patient is a 42 F who states that for the past week he she has had cough and some rhinorrhea. She also notes a sore throat. She is a heavy smoker. She was recently diagnosed with hypertension. She is concerned she may have pneumonia. She denies any fevers. No significant sputum production. Symptoms are worse at night when she lays down. Physical Examination: Afebrile vital signs are stable Gen: Well-nourished well-developed Head: Normocephalic atraumatic Eyes: Perrl EOMI ENT: TMs clear turbinate edema and clear rhinorrhea moist mucous membranes Neck: Supple no lymphadenopathy no JVD nontender CVS: Regular rate rhythm no murmurs normal S1-S2 Respiratory: No distress clear to auscultation bilaterally chest nontender frequent dry cough Abdomen: Soft nontender nondistended normal bowel sounds no masses Back: Nontender Extremity: Nontender no edema Skin: Normal color no rash Neuro: alert orientated 3 CN II-XII intact normal strength sensation reflexes gait cerebellar Psych: Normal affect normal mood Test Results: Chest x-ray is negative for infiltrate. Emergency Department Course and Treatment: We will trial Tessalon. I believe this to be a viral illness. Follow-up with primary care return if worsening or concerns. Impression: Viral respiratory infection This note was generated with [employer] dictation software. It may contain incorrect words, spelling, and punctuation that were not noted in review of the chart prior to signing ED Disposition - Plan for ED Patient: Disposition: Home or Assisted Living Chief Complaint: Cold Sx Instructions: ED Upper Resp Infec No Abx Tx Prescriptions: Benzonatate [Tessalon Perle] 200 mg PO TID PRN PRN #20 cap PRN Reason: Cough Referrals: Kimberly Gross NP-C [Primary Care Provider] - 1 Week if not improving What to do if you have Problems For any increased pain, shortness of breath, bleeding, nausea or vomiting, chest pain, or any unexpected problems, contact your Primary Care Provider. Call [facility] ([phone]) or report to the closest Emergency Room. Call 911 if necessary. 04/27/18 0112 <Electronically signed by Basil Bourgeois DO> Date Basil Bourgeois DO Cosigner Signature (If Indicated): Date CC: Kimberly STOVER CHEST PA AND LATERAL Observed: 04/26/2018 Status: F Source: [place] 9:04 PM [facility] REPOSITORY [facility] Imaging Services [address] [place] [address] Chest PA and Lateral MR#: [id number] Acct: [id number] Name: DANIELA CRAMER Rep #: [id number] : 1975 F 42 From: Mandeep Walls MD PCP: Kimberly Lindsay Status: REG ER Study: Chest PA and Lateral Date of Exam: 04/26/18 Exam# [id number] Ordering Dr: Basil Bourgeois DO STUDY: X-RAY CHEST REASON FOR EXAM: Female, 42 years old. Cough and cold TECHNIQUE: PA and lateral views of the chest. COMPARISON: Prior study of 02/18/2018 FINDINGS: The lungs are clear and expanded. There is no demonstrated pleural abnormality. Normal size heart. There is a small hiatal hernia. Normal visualized pulmonary arteries. Normal visualized aortic arch and descending thoracic aorta. Normal visualized thoracic spine. Normal visualized ribs, clavicles, and shoulders. There is no demonstrated abnormality of the visualized soft tissue structures of the upper abdomen. RAD/Chest PA and Lateral IMPRESSION: Small hiatal hernia. No acute cardiopulmonary disease process is seen. Chest findings are stable in the interval. Electronically Signed: Mandeep Walls MD at 21:24 EST , Service support , CC: Basil Bourgeois DO; Kimberly STOVER Veterinary Nurse: Signed EMERGENCY DEPARTMENT Observed: 04/04/2018 Status: F Source: [place] SUMMARY 5:13 PM [facility] REPOSITORY [facility] Medical Records Department [address] [place] [address] Emergency Department Summary 04/04/18 1711 MR#: [id number] Acct: [id number] Name: DANIELA CRAMER Rep #: [id number] : 1975 42 From: Sherrill Barbosa DO PCP: Kimberly Lindsay Status: REG ER - ER Visit Summary Date of Service: 04/04/18 Chief Complaint: [Addendum to initial dictation by Dr. Leon] History of Present Illness: The patient is a 42 F [presented to the emergency department and was fully evaluated by morning physician and care turned over to me awaiting evaluation by crisis. At this point the patient is denying suicidal ideation and can contract for safety. It is felt patient can be safely discharged home. Morning physician also thought that patient would likely be able to go home.] Physical Examination: [] Test Results: [] Emergency Department Course and Treatment: [] Treatment Plan: [] Disposition: [Discharged home in stable condition] Impression: [Depression Mood disorder] This note was generated with [employer] dictation software. It may contain incorrect words, spelling, and punctuation that were not noted in review of the chart prior to signing ED Disposition - Plan for ED Patient: Chief Complaint: Mental Health Instructions: ED Depression Referrals: Kimberly Gross NP-C [Primary Care Provider] - As Needed Additional Instructions: follow up with crisis as instructed What to do if you have Problems For any increased pain, shortness of breath, bleeding, nausea or vomiting, chest pain, or any unexpected problems, contact your Primary Care Provider. Call [facility] ([phone]) or report to the closest Emergency Room. Call 911 if necessary. 04/04/181712 <Electronically signed by Sherrill Barbosa DO> Date [facility] Cosigner Signature (If Indicated): Date CC: Kimberly STOVER DISCHARGE INSTRUCTION Observed: 04/04/2018 Status: F Source: [place] 5:11 PM [facility] REPOSITORY [facility] Medical Records Department [address] [place] [address] [place] [address] Discharge Instruction 04/04/181709 MR#: [id number] Acct: [id number] Name: DANIELA CRAMER Rep #: [id number] : 1975 42 From: Sherrill Barbosa DO PCP: Kimberly Lindsay Status: REG ER ED Disposition - Plan for ED Patient: Chief Complaint: Mental Health Instructions: ED Depression Referrals: Kimberly Gross NP-C [Primary Care Provider] - As Needed Additional Instructions: follow up with crisis as instructed What to do if you have Problems For any increased pain, shortness of breath, bleeding, nausea or vomiting, chest pain, or any unexpected problems, contact your Primary Care Provider. Call [facility] ([phone]) or report to the closest Emergency Room. Call 911 if necessary. 04/04/181710 <Electronically signed by Sherrill Barbosa DO> Date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 visualized ribs, clavicles, and shoulders. There is no demonstrated abnormality of the visualized soft tissue structures of the upper abdomen. RAD/Chest PA and Lateral IMPRESSION: Small hiatal hernia. Chest findings are otherwise unremarkable. Electronically Signed: Mandeep Walls MD at 18:22 EDT , Service support , CC: Kimberly STOVER; Nevin Workman MD Veterinary Nurse: Signed CBC W/DIFF, AUTOMATED Collected: 02/18/2018 Status: F Source: [place] 5:19 PM [facility] REPOSITORY TYPE CODE TESTS RESULT OUT OF RANGE REFERENCE UNITS LAB L100.1000 4.4-11.0 K/mm3 High WBC 13.1 LAB L100.1200 4.2-5.4 M/mm3 Normal RBC 4.82 LAB L100.1300 12.0-15.0 g/dl Normal HGB 14.5 LAB L100.1400 37-47 % Normal HCT 43.4 LAB L100.1500 81-99 fL Normal MCV 90.0 LAB L100.1600 27.0-32.0 pg Normal MCH 30.1 LAB L100.1700 32-36 g/gl Normal MCHC 33.4 LAB L100.1810 11.6-14.6 % Normal RDW CV 13.5 LAB L100.1820 35.1-43.9 fl High RDW SD 44.4 LAB L100.1900 150-450 K/mm3 Normal PLT 268 LAB L100.2000 6.2-12.0 fl Normal MPV 10.0 LAB L100.2100 47-70 % Normal NEUT% 57.4 LAB L100.2200 19-41 % Normal LY% 32.5 LAB L100.2300 0-10 % Normal MONO% 8.5 LAB L100.2400 0-5 % Normal EO% 1.2 LAB L100.2500 0-1 % Normal BASO% 0.2 LAB L100.2550 0.0-0.9 % Normal IM GRAN % 0.200 Result Comment: IG% - Immature Granulocytes (promyelocytes, myelocytes and metamyelocytes) > 1% indicates that a LEFT SHIFT is Present. LAB L100.2620 2.0-7.7 X10 3/uL Normal Absolute Neut 7.5 LAB L100.2720 0.83-4.51 X10 3/ul Normal Absolute Lymph 4.25 Performed By: #### L100.0100 #### [facility] [address] [place], [place], [address] BASIC METABOLIC Collected: 02/18/2018 Status: F Source: [place] PROFILE (BMP) 5:19 PM [facility] REPOSITORY TYPE CODE TESTS RESULT OUT OF RANGE REFERENCE UNITS LAB L501.0100 74-106 mg/dL High GLU 121 Result Comment: Fasting Glucose result from 100 to 125 mg/dL suggests IMPAIRED HOMEOSTASIS per A.D.A. criteria. Please note revised GLUCOSE reference range effective 2017. LAB L501.1000 7-18 mg/dL Normal BUN 7 LAB L501.1100 0.55-1.02 mg/dL Normal CREAT,SERUM 0.99 Result Comment: The validity of the calculated GFR AND GFRAA in patients over 70 years has not been determined. Clinical correlation is essential. LAB L501.1110 >60 mL/min Normal EST GFR 66 Result Comment: Non- GFR Calc LAB L501.1115 >60 mL/min Normal EST GFR - AA 80 Result Comment: GFR Calc LAB L501.1255 ml/min Normal Estimated CRCL 67.97 LAB L501.1300 10-20 RATIO Low BUN/CRE 7.1 LAB L501.2200 8.5-10 mg/dL Normal .1 CA 8.8 LAB L501.5300 136-14 mmol/L Normal 5 NA 140 LAB L501.5600 3.5-5. mmol/L Normal 1 K 3.6 LAB L501.5900 98-107 mmol/L High CL 108 LAB L501.6100 21.0-3 mmol/L Low 2.0 CO2 20.0 LAB L501.6200 5-15 Normal GAP 12 Performed By: #### L500.2500, L501.4010 #### [facility] [address] [place], [address] TROPONIN-I Collected: 02/18/2018 Status: F Source: [place] 5:19 PM [facility] REPOSITORY TYPE CODE TESTS RESULT OUT OF RANGE REFERENCE UNITS LAB L501.4010 <0.045 ng/mL Normal < 0.015 TROPONIN-I Result Comment: TROPONIN-I EXPECTED VALUES <0.045 Negative 0.045 - 0.590 Consistent with Cardiac Damage > OR = 0.600 Critical Value Not every elevated troponin is indicative of [place]. These values should be used with clinical judgement in examining the patient's clinical picture for diagnosis. To establish a diagnosis of NJ versus myocardial injury, there must be a demonstrated rise and/or fall in the troponin values, in addition to ischemic symptoms, EKG changes, new regional wall motion abnormality, and/or angiographical evidence. PLEASE NOTE: REFERENCE RANGES EDITED 17 Performed By: #### L500.2500, L501.4010 #### [facility] [place], [address] CBC Collected: 02/16/2018 Status: F Source: [facility] 11:17 AM [facility] EMERGENCY DEPARTMENT REPOSITORY TYPE CODE TESTS RESULT OUT OF REFERENCE UNITS RANGE LAB WBC(LOINC) 4.60-10.80 10 3/mcL High WBC 15.10 LAB RBCCT(LOINC 4.20-5.40 10 6/mcL ) RBC 5.03 LAB HGB(LOINC) 12.0-16.0 G/dL Hgb 15.3 LAB HCT(LOINC) 37.0-47.0 % Hct 44.1 LAB MCV(LOINC) 80.0-94.0 fL MCV 87.7 LAB MCH(LOINC) 27.0-31.2 pg MCH 30.5 LAB MCHC(LOINC) 33.0-37.0 G/dL MCHC 34.8 LAB RDW(LOINC) 11.5-14.5 % RDW 13.6 LAB PLT(LOINC) 130-400 10 3/mcL Platelet 300 LAB MPV(LOINC) 7.4-10.4 fL MPV 8.3 Performed By: #### CONSTANTINO HARMON ANEU #### [place] [address] [address] .AUTO DIFF Collected: 02/16/2018 Status: F Source: [facility] 11:17 AM [facility] EMERGENCY DEPARTMENT REPOSITORY TYPE CODE TESTS RESULT OUT OF REFERENCE UNITS RANGE LAB TIFFANIE(LOINC) 37.0-80.0 % Neutrophil % 62.8 LAB LYM(LOINC) 10.0-50.0 % Lymphocyte % 26.8 LAB MON(LOINC) 1.7-13.0 % Monocyte % 9.4 LAB EO(LOINC) 0.0-7.0 % Eosinophil % 0.6 LAB BAS(LOINC) 0.0-2.5 % Basophil % 0.4 LAB ABLYM(LOIN 0.77-3.85 10 3/mcL C) High Lymphocyte, 4.10 Absolute LAB ARIELLE(LOINC 0.15-1.00 10 3/mcL ) High Monocyte, 1.40 Absolute LAB AEOS(LOINC 0.00-0.40 10 3/mcL ) Eosinophil, 0.10 Absolute LAB ABAS(LOINC 0.00-0.19 10 3/mcL ) Basophil, 0.10 Absolute Performed By: #### CBC, ADIFF, ANEU #### [address] [place], [place] [address] .NEUABS Collected: 02/16/2018 Status: F Source: [facility] 11:17 AM [facility] EMERGENCY DEPARTMENT REPOSITORY TYPE CODE TESTS RESULT OUT OF REFERENCE UNITS RANGE LAB ANEU(LOINC) 2.85-6.16 10 3/mcL High Neutrophil, 9.50 Absolute Performed By: #### CBC, KULDIPIFF, ANEU #### [address] [place], [place] [address] PROG Collected: 02/09/2018 Status: F Source: [facility] 11:27 AM [facility] EMERGENCY DEPARTMENT REPOSITORY TYPE CODE TESTS RESULT OUT OF REFERENCE UNITS RANGE LAB PROG(LOINC ng/mL ) Progesterone Level 1.4 Result Comment: Adult Female Progesterone Reference Ranges (05/23/99): Follicular phase 0.2 - 1.4 ng/mL Luteal phase 3.3 - 25.6 ng/mL Mid-Luteal phase 4.4 - 28.0 ng/mL Postmenopausal 0.2 - 0.7 ng/ml Adult Male: 0.3 - 1.2 ng/mL Performed By: #### PROG, TESTO, E2 #### [address] [address] TESTO Collected: 02/09/2018 Status: F Source: [facility] 11:27 AM [facility] EMERGENCY DEPARTMENT REPOSITORY TYPE CODE TESTS RESULT OUT OF REFERENCE UNITS RANGE LAB TESTO(LOIN 14.0-76.0 ng/dL C) Testosterone Lvl 61.1 Performed By: #### PROG, TESTO, E2 #### [place] [address] E2 Collected: 02/09/2018 Status: F Source: [facility] 11:27 AM [facility] EMERGENCY DEPARTMENT REPOSITORY TYPE CODE TESTS RESULT OUT OF REFERENCE UNITS RANGE LAB E2(LOINC) pg/mL Estradiol Level 132 Result Comment: Adult Female E2 Reference Ranges (06/27/11): Follicular phase 21 - 165 pg/mL Midcycle 50 - 367 pg/mL Luteal phase 40 - 259 pg/mL Post menopausal 11 - 58 pg/mL Performed By: #### PROG, TESTO, E2 #### [place] [address] [place] [address] EMERGENCY DEPARTMENT Observed: 01/29/2018 Status: F Source: [place] SUMMARY 5:12 AM [facility] REPOSITORY [facility] Medical Records Department [address] [place] [address] Emergency Department Summary 01/29/18 0147 MR#: [id number] Acct: [id number] Name: DANIELA CRAMER Rep #: [id number] : 1975 42 From: Fernando Garcia DO PCP: Kimberly Lindsay Status: DEP ER - ER Visit Summary Date of Service: 01/29/18 Chief Complaint: Head injury History of Present Illness: The patient is a 42 F who presents with head injury that occurred today. Patient states she hit her head on the frame of her minivan. Patient states she was able to fall asleep afterwards. Patient states she has been having more nausea and vomiting since she woke up. Patient admits to some blurred vision. Patient states she has pain in her neck. Patient states she has a headache over the top of her head. Patient denies any paresthesias or weakness. Physical Examination: Vital signs are stable. Patient is afebrile. Patient is in no acute distress. There is tenderness over the top of her head. There is no bony crepitance or step-off noted. Cranial nerves II through XII are intact. Strength is 5/5 bilaterally. There are no sensory deficits noted. Pupils are equal, round, and reactive to light bilaterally. Extraocular muscles are intact. Funduscopic examination is benign. Neck is supple. Trachea is midline. No JVD or lymphadenopathy noted. Heart was regular rate and rhythm. Lungs are clear and equal bilaterally. The remaining physical exam is within normal limits. Test Results: CT scan of the brain was ordered but the patient left prior to obtaining CT scan. Emergency Department Course and Treatment: Patient was ordered Reglan and Benadryl for her headache. Patient left prior to receiving any medication or IV. Disposition: Eloped Impression: Closed head injury This note was generated with [employer]Spot dictation software. It may contain incorrect words, spelling, and punctuation that were not noted in review of the chart prior to signing ED Disposition - Plan for ED Patient: Disposition: Home or Assisted Living Chief Complaint: Head Injury Diagnosis: Closed head injury Referrals: Kimberly Gross NP-C [Primary Care Provider] - What to do if you have Problems For any increased pain, shortness of breath, bleeding, nausea or vomiting, chest pain, or any unexpected problems, contact your Primary Care Provider. Call [facility] ([phone]) or report to the closest Emergency Room. Call 911 if necessary. 01/29/18 0512 <Electronically signed by Fernando Garcia DO> Date Fernando Garcia DO Cosigner Signature (If Indicated): Date CC: Kimberly STOVER EMERGENCY DEPARTMENT Observed: 01/14/2018 Status: F Source: [place] SUMMARY 1:11 AM [facility] REPOSITORY [facility] Medical Records Department [address] [place] [address] Emergency Department Summary 01/13/18 2347 MR#: [id number] Acct: [id number] Name: DANIELA CRAMER Rep #: [id number] : 1975 42 From: Rebecca Valenzuela MD PCP: Kimberly Lindsay Status: REG ER - ER Visit Summary Date of Service: 01/13/18 Chief Complaint: Headache History of Present Illness: The patient is a 42 F presenting with gradual onset headache which started 3 days ago. Pain is in the left side of her head. She states she has a history of migraines but they are typically on the right side. She denies fever. Denies trauma. She states she has had nausea and vomiting yesterday and today. Denies other complaints. Physical Examination: Vitals are stable. Patient is afebrile. Alert no acute distress. HEENT exam mild left maxillary sinus tenderness Neck is supple. No meningismus Lungs are clear and equal bilaterally. Heart is regular rate and rhythm. Abdomen is soft nontender nondistended. Extremities are unremarkable. Skin is warm and dry. No focal neurologic deficit. Remainder of exam is unremarkable. Emergency Department Course and Treatment: Patient declines IV placement and was given Compazine, Benadryl, Toradol IM. On reevaluation, she has improvement of her headache. She is requesting to go home. Advised to follow-up with her primary care physician. Advised return to ED if worsening complaints. Disposition: Discharge home Impression: Headache This note was generated with QuarterSpot dictation software. It may contain incorrect words, spelling, and punctuation that were not noted in review of the chart prior to signing ED Disposition - Plan for ED Patient: Chief Complaint: Headache Referrals: Kimberly Gross NP-C [Primary Care Provider] - What to do if you have Problems For any increased pain, shortness of breath, bleeding, nausea or vomiting, chest pain, or any unexpected problems, contact your Primary Care Provider. Call [email or web address] ([phone]) or report to the closest Emergency Room. Call 911 if necessary. 01/14/18110 <Electronically signed by Rebecca Valenzuela MD> Date Rebecca Valenzuela MD Cosigner Signature (If Indicated): Date CC: Kimberly STOVER DISCHARGE INSTRUCTION Observed: 01/14/2018 Status: F Source: [place] 1:11 AM [facility] REPOSITORY [facility] Medical Records Department [address] [place] [address] Discharge Instruction 01/14/18110 MR#: [id number] Acct: [id number] Name: DANIELA CRAMER Rep #: [id number] : 1975 42 From: Rebecca Valenzuela MD PCP: Kimberly Lindsay Status: REG ER ED Disposition - Plan for ED Patient: Chief Complaint: Headache Instructions: ED Cephalgia Unspecified Referrals: Kimberly Gross NP-C [Primary Care Provider] - What to do if you have Problems For any increased pain, shortness of breath, bleeding, nausea or vomiting, chest pain, or any unexpected problems, contact your Primary Care Provider. Call [facility] ([phone]) or report to the closest Emergency Room. Call 911 if necessary. 01/14/18 0111 <Electronically signed by Rebecca Valenzuela MD> Date Rebecca Valenzuela MD Cosigner Signature (If Indicated): Date CC: Kimberly STOVER EMERGENCY DEPARTMENT Observed: 11/22/2017 Status: F Source: [place] SUMMARY 5:01 PM [facility] REPOSITORY [facility] Medical Records Department [address] [place] [address] Emergency Department Summary 11/22/17 1656 MR#: [id number] Acct: [id number] Name: DANIELA CRAMER Rep #: [id number] : 1975 42 From: Vickey Mathews MD PCP: Kimberly Lindsay Status: REG ER - ER Visit Summary Date of Service: 11/22/17 Chief Complaint: Injury right knee and left hand History of Present Illness: The patient is a 42 F who went to her neighbor's house last evening. She relies she went to the wrong door. There is a step-off of 6 inches. She fell landing on her right knee and apparently injuring the volar surface of her left hand/wrist. She has not taken anything for the pain. She denies head trauma. She denies neck pain. She denies paresthesia, anesthesia medics presently or at the time of the injury. She denies any cardiorespiratory symptoms. She complains of pain with movement of the right knee and weightbearing. She does not have any area specific discomfort with regards to the left hand/wrist. She has no other complaints. Please read written note. Physical Examination: Vital signs are noted. Heart rate is 103. HEENT exam is unremarkable with no evidence of trauma. Heart is regular without murmur, gallop or rub. S1 and S2 are normal. Lungs are clear to auscultation with good movement of air bilaterally. Examination left upper extremity reveals no evidence of trauma. There is no point tenderness. Axillary, median, radial and ulnar function intact. Radial pulses palpable. There is no subungual hematoma noted. She has full active range of motion of her thumb and fingers. Capillary refill is normal. Sensation is normal. Examination of the right knee reveals an abrasion with erythema. There is no lymphangitis. The patella is not ballotable. There is no effusion. She complains of pain with varus and valgus stress testing; however, there is no laxity. Negative Tiburcio's test. Negative modified Tracy's test. She is able to extend 180 and flex to 90 . There is no pain to palpation the popliteal fossa nerves are palpable mass. DP and PT pulses are palpable. She has significant tenderness over the infrapatellar tendon. Test Results: 4 view x-ray of the knee was obtained. There is no fracture noted. There is osteophyte of the superior aspect of the patella. There is no effusion. There is no fracture noted. No foreign body is noted. Emergency Department Course and Treatment: X-ray of the knee was obtained to rule out fracture since she has joint line tenderness and rule out foreign body. Treatment Plan: Since patient has no contraindication to anti- inflammatory medication she was treated with Naprosyn. Last tetanus was 3 years ago. Disposition: Discharged home with appropriate home-going instructions Impression: 1. Mechanical fall with injury initial encounter 2. Abrasion/contusion right knee 3. Traumatic infrapatellar bursitis 4. Contusion left hand This note was generated with QuarterSpot dictation software. It may contain incorrect words, spelling, and punctuation that were not noted in review of the chart prior to signing ED Disposition - Plan for ED Patient: Disposition: Home or Assisted Living Chief Complaint: Fall Instructions: ED Abrasion, ED Contusion Hand, ED Bursitis Prescriptions: Naproxen [Naprosyn] 500 mg PO BID #14 tab Referrals: Kimberly Gross NP-C [Primary Care Provider] - 1 Week if not improving What to do if you have Problems For any increased pain, shortness of breath, bleeding, nausea or vomiting, chest pain, or any unexpected problems, contact your Primary Care Provider. Call [facility] ([phone]) or report to the closest Emergency Room. Call 911 if necessary. 11/22/17 1701 <Electronically signed by Vickey Mathews MD> Date Vickey Mathews MD Cosigner Signature (If Indicated): Date CC: Kimberly STOVER KNEE 4 OR MORE Observed: 11/22/2017 Status: F Source: [place] VIEWS 4:39 PM [facility] REPOSITORY [facility] Imaging Services [address] [place] [address] Knee 4 or More Views MR#: [id number] Acct: [id number] Name: DANIELA CRAMER Rep #: [id number] : 1975 F 42 From: Michael Combs MD PCP: Kimberly Lindsay Status: REG ER Study: Knee 4 or More Views Date of Exam: 11/22/17 Exam# [id number] Ordering Dr: Vickey Mathews MD STUDY: X-RAY - RIGHT KNEE REASON FOR EXAM: Female, 42 years old. Pain. Fall. TECHNIQUE: 4 view(s) of the knee. COMPARISON: None. FINDINGS: Normal visualized distal femur. Normal visualized proximal tibia and fibula. Normal proximal tibiofibular articulation. There is no demonstrated fracture. Normal medial femorotibial compartment. Normal lateral femorotibial compartment. Normal patellofemoral articulation. There is no demonstrated joint effusion. The soft tissue structures are unremarkable. RAD/Knee 4 or More Views IMPRESSION: Normal x-ray examination of the knee. Electronically Signed: Michael Combs MD at 16:57 EDT , Service support , CC: Kimberly Gross SYSTEMS SPECIALIST-C; Vickey Mathews MD Veterinary Nurse: Signed EMERGENCY DEPARTMENT Observed: 11/02/2017 Status: F Source: [place] SUMMARY 11:04 PM [facility] REPOSITORY [facility] Medical Records Department [address] [place] [address] Emergency Department Summary 11/02/17 2244 MR#: [id number] Acct: [id number] Name: DANIELA CRAMER Rep #: [id number] : 1975 42 From: Augustine Mendoza MD PCP: Care Physician, No Primary Status: REG ER - ER Visit Summary Date of Service: 11/02/17 Chief Complaint: Headache History of Present Illness: The patient is a 42 F [place] to the emergency department migraine headache. Patient has a history of migraine. She states that this is her normal headache. It started gradually yesterday. She has tried Excedrin Migraine both yesterday and today with no relief. She does take tizanidine from time to time for her headache. She does follow with a neurologist in [place]. She denies any trauma. She denies any carbon monoxide exposure. She denies any visual change. Physical Examination: Well-appearing patient is in no acute distress. Head is normocephalic, atraumatic. Pupils equal round reactive, extraocular muscles intact. There is no temporal artery tenderness. There is no vesicular rash. Neck supple. Kernig's and Brudzinski's are negative. Heart regular rate and rhythm. Lungs clear, chest nontender. Abdomen soft, nontender, nondistended. Neuro exam displays no focal or lateralizing deficit. 2+ symmetric lower extremity reflexes. No clonus. No ataxia or gait abnormality. Test Results: [] Emergency Department Course and Treatment: The patient presents with a migraine. She is a benign neurologic examination. She did not want IV medications. I had ordered the patient IM Phenergan, Benadryl, Toradol. The patient states those are not going to fucking work to the nurse. She states these medications never work. She states that she needs narcotics. The nurse tried to explain to her that narcotics and migraines are not appropriate. The patient states I get them all the time. The patient eloped from the emergency department without treatment. Treatment Plan: [] Disposition: Discharge Impression: 1. Migraine This note was generated with [employer] software. It may contain incorrect words, spelling, and punctuation that were not noted in review of the chart prior to signing ED Disposition - Plan for ED Patient: Chief Complaint: Headache Referrals: Care Physician,No Primary [Primary Care Provider] - What to do if you have Problems For any increased pain, shortness of breath, bleeding, nausea or vomiting, chest pain, or any unexpected problems, contact your Primary Care Provider. Call [email or web address] ([phone]) or report to the closest Emergency Room. Call 911 if necessary. 11/02/17 7383 <Electronically signed by Augustine Mendoza MD> Date Augustine Mendoza MD Cosigner Signature (If Indicated): Date CC: No Primary Care Physician EMERGENCY DEPARTMENT Observed: 10/04/2017 Status: F Source: [place] SUMMARY 8:22 PM [facility] REPOSITORY [facility] Medical Records Department [address] [place] [address] Emergency Department Summary 10/04/17 1618 MR#: [id number] Acct: [id number] Name: DANIELA CRAMER Rep #: [id number] : 1975 42 From: Shelton Hogan PCP: Care Physician, No Primary Status: REG ER - ER Visit Summary Date of Service: 10/04/17 Chief Complaint: Abdominal pain History of Present Illness: The patient is a 42 F intermittent right-sided abdominal pain 2 days ago. This morning pain right side has been constant. Sharp in nature. 9 out of 10. Complains of nausea. No vomiting or diarrhea. Normal BM this morning. No urinary symptoms. History of cholecystectomy. States feels similar to when she had her gallbladder removed. Complains of chills. History of hysterectomy. Still has her appendix. Drink fluids prior to arrival, ate chips 3 hours prior to arrival. Physical Examination: General: Alert and oriented 3, no acute distress HEENT: Normocephalic, atraumatic. Moist mucosa membranes Neck: supple, nontender. Cardiovascular: Regular rate and rhythm, no murmurs Respiratory: Normal breath sounds, symmetric, no distress Abdomen: Soft, Tenderness guarding right lower quadrant, slight tenderness right upper quadrant without guarding, nondistended. Negative Rovsing's. Extremities: Nontender, no edema, pulses intact 4 Neuro: no focal neurological deficits. Test Results: WBC 11.8. Hemoglobin 15.2. Creatinine 0.73. Lipase 125. Liver enzymes normal. UA noted [address] abdomen pelvis with contrast: Normal appendix. Right adrenal mass. Emergency Department Course and Treatment: Patient right lower quadrant tenderness with nausea. Appendectomy workup initiated. Given fluids. Abdominal labs normal. Given Zofran and fentanyl. Workup negative for appendicitis. There is no right adrenal mass. After reviewing findings with the patient, states she just wants to go home. No progression of symptoms. Abdomen is soft on reevaluation. Discussed adrenal mass with patient importance for her to follow-up for reevaluation. Patient understands and agrees with plan. Prescription of Zofran given. Treatment Plan: [] Disposition: Discharge Impression: 1. Nonspecific abdominal pain 2. Adrenal mass This note was generated with QuarterSpot dictation software. It may contain incorrect words, spelling, and punctuation that were not noted in review of the chart prior to signing ED Disposition - Plan for ED Patient: Disposition: Home or Assisted Living Chief Complaint: Abd Pain Diagnosis: Nonspecific abdominal pain, Right adrenal mass Instructions: ED Abdominal Pain Unkn Cause Prescriptions: Ondansetron [Zofran Odt] 4 mg PO Q8H PRN PRN #10 tablet PRN Reason: Nausea Referrals: Care Physician,No Primary [Primary Care Provider] - Radu Hills DO [STAFF PHYSICIAN] - 3-5 Days Additional Instructions: Normal appendix and workup. Right adrenal mass of 2 cm. Follow-up as an outpatient reevaluation and further testing. What to do if you have Problems For any increased pain, shortness of breath, bleeding, nausea or vomiting, chest pain, or any unexpected problems, contact your Primary Care Provider. Call [facility] ([phone]) or report to the closest Emergency Room. Call 911 if necessary. 10/04/172021 <Electronically signed by Shelton Hogan> Date Shelton Hogan Cosigner Signature (If Indicated): Date CC: No Primary Care Physician CBC W/DIFF, AUTOMATED Collected: 10/04/2017 Status: F Source: [place] 4:58 PM [facility] REPOSITORY TYPE CODE TESTS RESULT OUT OF RANGE REFERENCE UNITS LAB L100.1000 4.4-11.0 K/mm3 High WBC 11.8 LAB L100.1200 4.2-5.4 M/mm3 Normal RBC 5.02 LAB L100.1300 12.0-15.0 g/dl High HGB 15.2 LAB L100.1400 37-47 % Normal HCT 45.3 LAB L100.1500 81-99 fL Normal MCV 90.2 LAB L100.1600 27.0-32.0 pg Normal MCH 30.3 LAB L100.1700 32-36 g/gl Normal MCHC 33.6 LAB L100.1810 11.6-14.6 % Normal RDW CV 13.3 LAB L100.1820 35.1-43.9 fl Normal RDW SD 43.7 LAB L100.1900 150-450 K/mm3 Normal PLT 253 LAB L100.2000 6.2-12.0 fl Normal MPV 9.7 LAB L100.2100 47-70 % Normal NEUT% 49.0 LAB L100.2200 19-41 % Normal LY% 36.7 LAB L100.2300 0-10 % High MONO% 11.4 LAB L100.2400 0-5 % Normal EO% 2.4 LAB L100.2500 0-1 % Normal BASO% 0.3 LAB L100.2550 0.0-0.9 % Normal IM GRAN % 0.200 Result Comment: IG% - Immature Granulocytes (promyelocytes, myelocytes and metamyelocytes) > 1% indicates that a LEFT SHIFT is Present. LAB L100.2620 2.0-7.7 X10 3/uL Normal Absolute Neut 5.8 LAB L100.2720 0.83-4.51 X10 3/ul Normal Absolute Lymph 4.34 Performed By: #### L100.0100 #### [facility] [address] [place], [place], [address] COMPREHENSIVE METABOLIC Collected: 10/04/2017 Status: F Source: [facility] 4:58 PM [facility] REPOSITORY TYPE CODE TESTS RESULT OUT OF RANGE REFERENCE UNITS LAB L501.0100 74-106 mg/dL Normal GLU 81 Result Comment: Please note revised GLUCOSE reference range effective 2017. LAB L501.1000 7-18 mg/dL Low BUN 3 LAB L501.1100 0.55-1.02 mg/dL Normal CREAT,SERUM 0.73 Result Comment: The validity of the calculated GFR AND GFRAA in patients over 70 years has not been determined. Clinical correlation is essential. LAB L501.1110 >60 mL/min Normal EST GFR 94 Result Comment: Non- GFR Calc LAB L501.1115 >60 mL/min Normal EST GFR - AA 114 Result Comment: GFR Calc LAB L501.1255 ml/min Normal Estimated CRCL 88.46 LAB L501.1300 10-20 RATIO Low BUN/CRE 4.1 LAB L501.1500 6.4-8. g/dL Normal 2 T PROT 7.0 LAB L501.1800 3.2-5. g/dL Normal 0 ALB 3.3 LAB L501.1950 2.2-4. g/dL Normal 2 GLOB 3.7 LAB L501.2000 0.9-2. RATIO Normal 4 A/G 0.9 LAB L501.2200 8.5-10 mg/dL Normal .1 CA 8.6 LAB L501.4100 15-37 U/L Normal AST 15 Result Comment: Moderate Hemolysis, Result may be falsely increased. LAB L501.4305 45-117 U/L Normal ALK P 100 LAB L501.4405 13-56 U/L Normal ALT 17 LAB L501.4600 0.20-1.00 mg/dL Normal T BILI 0.40 LAB L501.5300 136-145 mmol/L Normal NA 140 LAB L501.5600 3.5-5.1 mmol/L Normal K 4.3 Result Comment: Moderate Hemolysis, Result may be falsely increased. LAB L501.5900 98-107 mmol/L High CL 109 LAB L501.6100 21.0-32.0 mmol/L Normal CO2 24.0 LAB L501.6200 5-15 Normal 7 GAP Performed By: #### L500.4050, L501.2450 #### [facility] [address] [place], [address] LIPASE Collected: 10/04/2017 Status: F Source: [place] 4:58 PM [facility] REPOSITORY TYPE CODE TESTS RESULT OUT OF RANGE REFERENCE UNITS LAB L501.2450 73-393 U/L Normal LIPASE 125 Performed By: #### L500.4050, L501.2450 #### [facility] [address] [place], [address] URINALYSIS, COMPLETE Collected: 10/04/2017 Status: F Source: [place] 4:40 PM [facility] REPOSITORY Order Comment: Order Date: 10/04/17 How was Urine Obtained? CLEAN CATCH TYPE CODE TESTS RESULT OUT OF RANGE REFERENCE UNITS LAB L400.3000 Yellow COLOR Normal Yellow LAB L400.3050 Clear Normal CLARITY Sl. Cloudy LAB L400.3200 Normal mg/dl Normal GLUCOSE, UR Normal LAB L400.3300 Negative mg/dL Normal BILIRUBIN URINE Negative LAB L400.3400 Negative mg/dl Normal KETONE UR Negative LAB L400.3465 1.002-1.030 Normal SP.GR. DIPSTX 1.010 LAB L400.3550 5.0 - 8.0 pH UR Normal 6.5 LAB L400.3600 Negative mg/dl PROT Normal DIPSTX Negative LAB L400.3700 Normal mg/dl Normal UROBILI Normal LAB L400.3750 Negative Normal NITRITE UR Negative LAB L400.3780 Negative /ul High 25 OCCULT BLOOD-UR LAB L400.3800 Negative /ul LEUK Normal ESTERASE Negative LAB L400.4050 0-5 /hpf WBC Normal 0-5 SEEN LAB L400.4100 0-5 /hpf 0 Normal RBC-UA SEEN LAB L400.4150 5-10 /hpf SQUAM Normal EPI 5-10 SEEN LAB L400.4300 None Seen /hpf Normal BACTERIA RARE LAB L400.4350 <or=2+ /hpf 0 Normal MUCUS, URINE SEEN Performed By: #### L400.0001 #### [facility] [address] [facility] [place], [address] ABDOMEN/PELVIS WITH Observed: 10/04/2017 Status: F Source: [place] CONTRAST 4:15 PM [facility] REPOSITORY [facility] Imaging Services [address] [place] [address] Abdomen/Pelvis WITH Contrast MR#: [id number] Acct: [id number] Name: DANIELA CRAMER Rep #: [id number] : 1975 F 42 From: Michael Combs MD PCP: Care Physician, No Primary Status: REG ER Study: Abdomen/Pelvis WITH Contrast Date of Exam: 10/04/17 Exam# [id number] Ordering Dr: Shelton Baca DO STUDY: CT ABDOMEN AND PELVIS WITH CONTRAST REASON FOR EXAM: Female, 42 years old. Right lower quadrant pain. RADIATION DOSAGE (If Supplied By Facility): CTDIvol = ( 18.31 ) mGy, DLP = ( 1227.43 ) mGycm TECHNIQUE: Transaxial images were obtained from the dome of the diaphragm to the symphysis pubis with oral contrast. 100ML ml of Isovue 300 contrast was administered. Sagittal and coronal images were reconstructed. Individualized dose optimization techniques were used for this CT. COMPARISON: 07/25/2017 FINDINGS: The visualized lung bases are unremarkable. The visualized portions of the heart are within normal limits. There is decreased attenuation of the liver consistent with steatosis. There is non-visualization of the gallbladder, which may be secondary to either contraction or a prior cholecystectomy. Normal spleen. Normal pancreas. Stable 2.1 cm mass of the right adrenal gland. Normal left adrenal gland. Normal right kidney. Normal left kidney. Normal visualized stomach. Normal small intestine. Moderate fecal retention, otherwise negative colon. The appendix is visualized and appears normal. Normal abdominal aorta. Normal inferior vena cava. Normal retroperitoneum. Normal urinary bladder. There is absence of the uterus consistent with a prior hysterectomy. Normal abdominal wall. Normal osseous structures. CT/Abdomen/Pelvis WITH Contrast IMPRESSION: No definite acute abnormality. Stable 2 cm right adrenal mass. Fecal retention. Electronically Signed: Michael Combs MD at 19:42 EDT , Service support , CC: No Primary Care Physician; Shelton Baca Veterinary Nurse: Signed CBC Collected: 09/03/2017 Status: F Source: [facility] 6:24 PM [facility] REPOSITORY TYPE CODE TESTS RESULT OUT OF REFERENCE UNITS RANGE LAB WBC(LOINC) 4.60-10.80 10 3/mcL High WBC 14.90 LAB RBCCT(LOINC 4.20-5.40 10 6/mcL ) RBC 5.06 LAB HGB(LOINC) 12.0-16.0 G/dL Hgb 14.9 LAB HCT(LOINC) 37.0-47.0 % Hct 44.6 LAB MCV(LOINC) 80.0-94.0 fL MCV 88.2 LAB MCH(LOINC) 27.0-31.2 pg MCH 29.5 LAB MCHC(LOINC) 33.0-37.0 G/dL MCHC 33.5 LAB RDW(LOINC) 11.5-14.5 % RDW 13.6 LAB PLT(LOINC) 130-400 10 3/mcL Platelet 248 LAB MPV(LOINC) 7.4-10.4 fL MPV 8.1 Performed By: #### CBC, ADIFF, ANEU, GFR, CMP #### [address] [address] .AUTO DIFF Collected: 09/03/2017 Status: F Source: [facility] 6:24 PM [facility] EMERGENCY DEPARTMENT REPOSITORY TYPE CODE TESTS RESULT OUT OF REFERENCE UNITS RANGE LAB TIFFANIE(LOINC) 37.0-80.0 % Neutrophil % 68.1 LAB LYM(LOINC) 10.0-50.0 % Lymphocyte % 22.2 LAB MON(LOINC) 1.7-13.0 % Monocyte % 7.7 LAB EO(LOINC) 0.0-7.0 % Eosinophil % 1.4 LAB BAS(LOINC) 0.0-2.5 % Basophil % 0.6 LAB ABLYM(LOIN 0.77-3.85 10 3/mcL C) Lymphocyte, 3.30 Absolute LAB ARIELLE(LOINC 0.15-1.00 10 3/mcL ) High Monocyte, 1.10 Absolute LAB AEOS(LOINC 0.00-0.40 10 3/mcL ) Eosinophil, 0.20 Absolute LAB ABAS(LOINC 0.00-0.19 10 3/mcL ) Basophil, 0.10 Absolute Performed By: #### CBC, ADIFF, ANEU, GFR, CMP #### [address] [address] .NEUABS Collected: 09/03/2017 Status: F Source: [facility] 6:24 PM [facility] EMERGENCY DEPARTMENT REPOSITORY TYPE CODE TESTS RESULT OUT OF REFERENCE UNITS RANGE LAB ANEU(LOINC) 2.85-6.16 10 3/mcL High Neutrophil, 10.10 Absolute Performed By: #### CBC, ADIFF, ANEU, GFR, CMP #### [address] [address] .GFR Collected: 09/03/2017 Status: F Source: [facility] 6:24 PM [facility] EMERGENCY DEPARTMENT REPOSITORY TYPE CODE TESTS RESULT OUT OF REFERENCE UNITS RANGE LAB GFRAA(LOINC ml/min/1.73 ) sqm GFR 86 [place] Result Comment: GFR Population mean for , Non- Americans Ages 20-29 = 116 mL/min/1.73 sq.m. Ages 30-39 = 107 mL/min/1.73 sq.m. Ages 40-49 = 99 mL/min/1.73 sq.m. Ages 50-59 = 93 mL/min/1.73 sq.m. Ages 60-69 = 85 mL/min/1.73 sq.m. Ages 70+ = 75 mL/min/1.73 sq.m. Chronic Kidney Disease: Less than 60 mL/min/1.73 square meters End Stage Renal Disease: Less than 15 mL/min/1.73 square meters LAB GFRNO(LOINC) ml/min/1.73sqm GFR Non- >60 Result Comment: GFR Population mean for , Non- Americans Ages 20-29 = 116 mL/min/1.73 sq.m. Ages 30-39 = 107 mL/min/1.73 sq.m. Ages 40-49 = 99 mL/min/1.73 sq.m. Ages 50-59 = 93 mL/min/1.73 sq.m. Ages 60-69 = 85 mL/min/1.73 sq.m. Ages 70+ = 75 mL/min/1.73 sq.m. Chronic Kidney Disease: Less than 60 mL/min/1.73 square meters End Stage Renal Disease: Less than 15 mL/min/1.73 square meters Performed By: #### CBC, ADIFF, ANEU, GFR, CMP #### [address] [address] CMP Collected: 09/03/2017 Status: F Source: [facility] 6:24 PM [facility] REPOSITORY TYPE CODE TESTS RESULT OUT OF REFERENCE UNITS RANGE LAB 1547-9 70-105 mg/dL GLUCOSE High 106 LAB NA(LOINC) 136-146 mEq/L Sodium Level 140 LAB K(LOINC) 3.5-5.1 mEq/L Potassium Level 4.0 LAB CL(LOINC) 98-107 mEq/L Chloride 106 LAB CO2(LOINC) 22-29 mEq/L CO2 28 LAB EBAL(LOINC mEq/L ) Electrolyte Balance 6.0 LAB BUN(LOINC) 7.0-18.0 mg/dL Low BUN 4.9 LAB CRE(LOINC) 0.6-1.2 mg/dL Creatinine Lvl (s) 0.9 LAB BC(LOINC) 7-27 ratio Low BUN/Creatinine 5 Ratio LAB CA(LOINC) 8.4-10.2 mg/dL Calcium Lvl 9.4 LAB PROT(LOINC 6.0-8.3 G/dL ) Total Protein 6.5 LAB ALB(LOINC) 3.5-5.0 G/dL Albumin Level 4.0 LAB GLB(LOINC) G/dL Globulin 2.5 LAB AG(LOINC) 1.1-2.5 ratio A/G Ratio 1.6 LAB BILT(LOINC 0.2-1.0 mg/dL ) Bili Total 0.3 LAB AP(LOINC) 40-135 IU/L Alk Phos 81 LAB AST(LOINC) 10-40 IU/L AST/SGOT 11 LAB ALT(LOINC) 10-35 IU/L ALT/SGPT 13 Performed By: #### CBC, ADIFF, ANEU, GFR, CMP #### [address] [address] UA Collected: 09/03/2017 Status: F Source: [facility] 6:24 PM [facility] EMERGENCY DEPARTMENT REPOSITORY TYPE CODE TESTS RESULT OUT OF REFERENCE UNITS RANGE LAB SPCUA(LOIN C) UA Specimen Type Clean Catch LAB CLRUA(LOIN C) UA Color YELLOW LAB APPUA(LOIN C) UA Appear CLEAR LAB SGUA(LOINC ) UA Spec Grav 1.015 LAB GLUA(LOINC mg/dL ) UA Glucose NEGATIVE LAB BILUA(LOIN C) UA Bili NEGATIVE LAB KETUA(LOIN mg/dL C) UA Ketones NEGATIVE LAB BLDUA(LOIN C) UA Blood TRACE-LYSED LAB PHUA(LOINC ) UA pH 7.0 LAB PROUA(LOIN mg/dL C) UA Protein NEGATIVE LAB UROUA(LOIN E.U./dL C) UA Urobilinogen 0.2 LAB NITUA(LOIN C) UA Nitrite NEGATIVE LAB LEUUA(LOIN C) UA Leuk Est NEGATIVE Performed By: #### UA, UAMICAO #### [address] [place], [place] [address] .URINALYSIS MICROSCOPIC Collected: 09/03/2017 Status: F Source: [place] ([place]) 6:24 PM [facility] REPOSITORY TYPE CODE TESTS RESULT OUT OF RANGE REFERENCE UNITS LAB WBCUA(LOIN None Seen /hpf C) UA WBC None Seen LAB RBCUA(LOIN None Seen /hpf C) UA RBC Abnormal 0-5 LAB EPIUA(LOIN None Seen /hpf C) UA Squam Epithelial None Seen Performed By: #### UA, UAMICAO #### [facility] [address] [address] EMERGENCY DEPARTMENT Observed: 08/13/2017 Status: F Source: [place] SUMMARY 4:22 AM [facility] REPOSITORY [facility] Medical Records Department [address] [place] [address] Emergency Department Summary 08/10/17 2258 MR#: [id number] Acct: [id number] Name: DANIELA CRAMER Rep #: [id number] : 1975 42 From: Woody Fernandes MD PCP: Care Physician, No Primary Status: DEP ER - ER Visit Summary Date of Service: 08/10/17 Chief Complaint: [] Right lower back injury History of Present Illness: The patient is a 42 F presents with a back injury yesterday gradually she has been hurting. She had a syncopal episode where she fell back into the windowsill and then slid down the wall. She is a history of syncope frequently in the past. She tried Excedrin. She is a history of L5-S1 fusion. No significant trauma yesterday. It was more of a sliding mechanism. She is having pain in the right lower back. She does not history of prior back pain and chronic neck pain. Physical Examination: Vital signs reviewed General: Well-nourished well-developed Head: Normocephalic atraumatic Eyes: Pupils equal round and reactive to light extraocular movements intact ENT: TMs clear no hemotympanum no trauma Neck: Nontender full range of motion Cardiovascular: Regular rate rhythm no murmurs normal S1-S2 Respiratory: No distress clear to auscultation bilaterally chest nontender Abdomen: Soft nontender nondistended normal bowel sounds no masses Back: Nontender no CVA tenderness mild tenderness right lower lumbar spine without swelling or deformity or contusion. Decreased range of motion mild secondary to pain. Extremities: Nontender active range of motion 4 extremities no trauma Skin: Normal color no trauma Neuro alert oriented cranial nerves II through XII intact normal strength sensation reflexes Test Results: [] Emergency Department Course and Treatment: [] Given intramuscular analgesia. Do not feel she needs anything home. She will take [id number] NSAIDs and follow-up as an outpatient. I think she just bruised and strained her back. Treatment Plan: [] Disposition: [] Impression: [] Lumbar back injury suspected strain and contusion This note was generated with [employer]Spot dictation software. It may contain incorrect words, spelling, and punctuation that were not noted in review of the chart prior to signing ED Disposition - Plan for ED Patient: Chief Complaint: Back Referrals: Care Physician,No Primary [Primary Care Provider] - What to do if you have Problems For any increased pain, shortness of breath, bleeding, nausea or vomiting, chest pain, or any unexpected problems, contact your Primary Care Provider. Call [email or web address] ([phone]) or report to the closest Emergency Room. Call 911 if necessary. 08/13/17421 <Electronically signed by Woody Fernandes MD> Date Woody Fernandes MD Cosigner Signature (If Indicated): Date CC: No Primary Care Physician DISCHARGE INSTRUCTION Observed: 08/13/2017 Status: F Source: [place] 4:22 AM [facility] REPOSITORY [facility] Medical Records Department [address] [place] [address] Discharge Instruction 08/10/17 2300 MR#: [id number] Acct: [id number] Name: DANIELA CRAMER Rep #: [id number] : 1975 42 From: Woody Fernandes MD PCP: Emi Physician, No Primary Status: DEP ER ED Disposition - Plan for ED Patient: Disposition: Home or Assisted Living Chief Complaint: Back Instructions: ED Sprain Strain Lumbar Referrals: Care Physician,No Primary [Primary Care Provider] - Pa Malik, DO [NON-STAFF] - What to do if you have Problems For any increased pain, shortness of breath, bleeding, nausea or vomiting, chest pain, or any unexpected problems, contact your Primary Care Provider. Call [facility] ([phone]) or report to the closest Emergency Room. Call 911 if necessary. 08/13/17 0422 <Electronically signed by Woody Fernandes MD> Date Woody Fernandes MD Cosigner Signature (If Indicated): Date CC: No Primary Care Physician EMERGENCY DEPARTMENT Observed: 08/04/2017 Status: F Source: [place] SUMMARY 3:14 AM [facility] REPOSITORY [facility] Medical Records Department [address] [place] [address] Emergency Department Summary 08/03/17 2259 MR#: [id number] Acct: [id number] Name: DANIELA CRAMER Rep #: [id number] : 1975 42 From: Aj Wood MD PCP: Care Physician, No Primary Status: REG ER - ER Visit Summary Date of Service: 08/03/17 Chief Complaint: Suicidal thoughts History of Present Illness: The patient is a 42 F states she got in a fight with her boyfriend vitaliy and was feeling depressed and wanted him to take her to the hospital to talk to somebody to see psychiatry. He refused and so she went outside in the cold and since she did not want to call crisis while outside in the cold, she came to the emergency department. She has an appointment with psychiatry in the morning, it is 11 at night at this time. She has had some recent medication additions, she had to stop 1 of them because of itching, which is why she has an appointment tomorrow morning. She denies any plan, says she feels suicidal though. She did not eat or drink anything prior to coming or take any drugs or medications or attempt to kill herself. With further history, it appears that the patient and her boyfriend are homeless and living with somebody else at the time, who apparently lost power because they are not pain the [employer], so they are running the placed on a generator. The patient has been upset with her boyfriend all day, according to him, and called him to take care of things with regards to the generator, and since it is not his or his home, he refused, so she became very upset at him, threatening to run out into traffic, and I believe this is a big part of what led to her coming to the emergency department. Physical Examination: Lungs are stable, she is texting on her phone and well-appearing. Physical exam is normal. She has labile emotions. She is talking passive aggressively concerning her psychiatrist and her boyfriend. She states that she wants to talk to somebody tonight, and not necessarily be admitted, but did not call crisis prior to coming. Test Results: Labs are normal except for a slight hypokalemia at 3.4 which is likely due to shift from her being anxious. Toxicology shows positive benzos and marijuana but is otherwise normal negative. is negative. Emergency Department Course and Treatment: Patient is medically cleared for crisis evaluation, who is currently backlogged and the patient is waiting. She is requesting something for her nerves. She is given Vistaril and will await crisis evaluation. Treatment Plan: Crisis evaluation and likely discharge for her appointment with psychiatry in the morning. Update: Crisis evaluated, comfortable with her being discharged home with her boyfriend who is here to pick her up, she has a counseling appointment at 11 AM which is 8 hours away, in addition to her psychiatry appointment for working on adjusting her medications. In the emergency department, she was passive aggressive with regards to the examiner, and the fact that I would not give her benzodiazepines to calm her down. She has a long-standing history of substance abuse for which she has a care plan here. Given her somewhat manipulative behavior here in the ER, I do not think giving her benzos is in her best interest. She is discharged with her boyfriend. Disposition: Discharge home Impression: Situational reaction to stress Suicidal thoughts Bipolar disorder This note was generated with QuarterSpot dictation software. It may contain incorrect words, spelling, and punctuation that were not noted in review of the chart prior to signing ED Disposition - Plan for ED Patient: Disposition: Home or Assisted Living Chief Complaint: Suicidal Instructions: ED Manic Depression Referrals: Counseling,Center [GROUP OF PHYSICIANS] - (as scheduled in AM) What to do if you have Problems For any increased pain, shortness of breath, bleeding, nausea or vomiting, chest pain, or any unexpected problems, contact your Primary Care Provider. Call [facility] ([phone]) or report to the closest Emergency Room. Call 911 if necessary. 08/04/17 0314 <Electronically signed by Aj Wood MD> Date Aj Wood MD Cosigner Signature (If Indicated): Date CC: No Primary Care Physician URINE DRUG SCREEN Collected: 08/03/2017 Status: F Source: [place] [facility] 11:00 PM [facility] REPOSITORY TYPE CODE TESTS RESULT OUT OF RANGE REFERENCE UNITS LAB L505.0075 TO BE Normal CONFIRMED Result Comment: CONFIRMATORY TESTING FOR ALL POSITIVE URINE DRUG SCREEN RESULTS WILL ONLY BE SENT OUT UPON PHYSICIAN ORDER. VISTA Urine Drug Screen methods provide only preliminary analytical test results. A more specific alternate chemical method must be used in order to obtain a confirmed analytical result. Gas chromatography/mass spectrometery (GC/MS) is the preferred confirmatory method. Clinical consideration and professional judgement should be applied to any drug of abuse test result, particularly when preliminary positive results are used. URINE TCA TESTING MUST BE ORDERED SEPARATELY. USE TEST MNEMONIC: [facility] LAB L505.5005 VISTA UDS PH 6 Normal LAB L505.5015 <1000 ng/mL AMPHETAMINES Normal NEGATIVE LAB L505.5025 < 200 ng/mL BARBITIURATES Normal NEGATIVE LAB L505.5035 < 200 High ng/mL BENZODIAZIPINE POSITIVE LAB L505.5045 < 300 ng/mL COCAINE Normal NEGATIVE LAB L505.5055 < 500 ng/mL ECSTACY Normal NEGATIVE LAB L505.5065 < 300 ng/mL METHADONE Normal NEGATIVE LAB L505.5075 < 300 ng/mL OPIATES Normal NEGATIVE LAB L505.5085 < 25 ng/mL PCP Normal NEGATIVE LAB L505.5095 < 50 High ng/mL THC POSITIVE Performed By: #### L505.5000 #### [facility] [address] [place], [place], [id number] CBC W/DIFF, AUTOMATED Collected: 08/03/2017 Status: F Source: [place]IL[place] 11:00 PM [facility] REPOSITORY TYPE CODE TESTS RESULT OUT OF RANGE REFERENCE UNITS LAB L100.1000 4.4-11.0 K/mm3 Normal WBC 8.3 LAB L100.1200 4.2-5.4 M/mm3 Normal RBC 4.90 LAB L100.1300 12.0-15.0 g/dl Normal HGB 14.6 LAB L100.1400 37-47 % Normal HCT 45.3 LAB L100.1500 81-99 fL Normal MCV 92.4 LAB L100.1600 27.0-32.0 pg Normal MCH 29.8 LAB L100.1700 32-36 g/gl Normal MCHC 32.2 LAB L100.1810 11.6-14.6 % Normal RDW CV 13.5 LAB L100.1820 35.1-43.9 fl High RDW SD 45.5 LAB L100.1900 150-450 K/mm3 Normal PLT 248 LAB L100.2000 6.2-12.0 fl Normal MPV 10.0 LAB L100.2100 47-70 % Normal NEUT% 61.9 LAB L100.2200 19-41 % Normal LY% 27.1 LAB L100.2300 0-10 % Normal MONO% 7.7 LAB L100.2400 0-5 % Normal EO% 2.8 LAB L100.2500 0-1 % Normal BASO% 0.4 LAB L100.2550 0.0-0.9 % Normal IM GRAN % 0.100 Result Comment: IG% - Immature Granulocytes (promyelocytes, myelocytes and metamyelocytes) > 1% indicates that a LEFT SHIFT is Present. LAB L100.2620 2.0-7.7 X10 3/uL Normal Absolute Neut 5.2 LAB L100.2720 0.83-4.51 X10 3/ul Normal Absolute Lymph 2.25 Performed By: #### L100.0100 #### [facility] [address] [place], [place], [id number] BASIC METABOLIC Collected: 08/03/2017 Status: F Source: [place] PROFILE (BMP) 11:00 PM [facility] REPOSITORY TYPE CODE TESTS RESULT OUT OF RANGE REFERENCE UNITS LAB L501.0100 74-106 mg/dL Normal GLU 104 Result Comment: Fasting Glucose result from 100 to 125 mg/dL suggests IMPAIRED HOMEOSTASIS per A.D.A. criteria. Please note revised GLUCOSE reference range effective 2017. LAB L501.1000 7-18 mg/dL Normal BUN 7 LAB L501.1100 0.55-1.02 mg/dL Normal CREAT,SERUM 0.94 Result Comment: The validity of the calculated GFR AND GFRAA in patients over 70 years has not been determined. Clinical correlation is essential. LAB L501.1110 >60 mL/min Normal EST GFR 70 Result Comment: Non- GFR Calc LAB L501.1115 >60 mL/min Normal EST GFR - AA 85 Result Comment: GFR Calc LAB L501.1255 ml/min Normal Estimated CRCL 68.70 LAB L501.1300 10-20 RATIO Low BUN/CRE 7.5 LAB L501.2200 8.5-10 mg/dL Normal .1 CA 8.7 LAB L501.5300 136-14 mmol/L Normal 5 NA 139 LAB L501.5600 3.5-5. mmol/L Low 1 K 3.4 LAB L501.5900 98-107 mmol/L Normal CL 107 LAB L501.6100 21.0-3 mmol/L Normal 2.0 CO2 24.0 LAB L501.6200 5-15 Normal GAP 8 Performed By: #### L500.2500 #### [facility] [address] [place], [place], [address] ,SERUM,HCG QUALI. Collected: Status: F Source: ZULEIKA 08/03/2017 11:00 PM [facility] REPOSITORY TYPE CODE TESTS RESULT OUT OF REFERENCE UNITS RANGE LAB L700.7000 0-9 Nonpreg Negative Normal HCGSQUAL NEGATIVE LAB L700.6700 =>Qualitative mIU/mL Normal HCG Qual < 1 triggr Performed By: #### L700.6800 #### [facility] [address] [place], [address] ALCOHOL, BLOOD Collected: 08/03/2017 Status: F Source: ZULEIKA (MEDICAL)-SERUM 11:00 PM [facility] REPOSITORY TYPE CODE TESTS RESULT OUT OF RANGE REFERENCE UNITS LAB L501.9100 mg/dL Normal SERUM < 3.0 ETOH Result Comment: The serum:whole blood ethanol ratio is approximately 1.14 and varies slightly with hematocrit. Medical Alcohol reference interval and critical value in non-tolerant individuals; 50 - 100 Impairment 100 Intoxication 100 - 250 Severe Poisoning 250 - 400 Deep/possible fatal coma Performed By: #### L501.9100 #### [facility] [address] [place], [address] DISCHARGE INSTRUCTION Observed: 07/26/2017 Status: F Source: [place]A 12:24 AM [facility] REPOSITORY [facility] Medical Records Department [address] [place] [address] Discharge Instruction 07/26/17 0022 MR#: [id number] Acct: [id number] Name: DANIELA CRAMER Rep #: [id number] : 1975 42 From: Tommy Chavez MD PCP: Emi Physician, No Primary Status: REG ER ED Disposition - Plan for ED Patient: Chief Complaint: Complaint Instructions: ED UTI Cystitis Female Prescriptions: Ondansetron [Zofran Odt] 4 mg PO Q8H PRN PRN #10 tab PRN Reason: Nausea Smz/Tmp Ds [Bactrim Ds] 1 tab PO BID #20 tab Referrals: Care Physician,No Primary [Primary Care Provider] - What to do if you have Problems For any increased pain, shortness of breath, bleeding, nausea or vomiting, chest pain, or any unexpected problems, contact your Primary Care Provider. Call [facility] ([phone]) or report to the closest Emergency Room. Call 911 if necessary. 07/26/17 0024 <Electronically signed by Tommy Chavez MD> Date Tommy Chavez MD Cosigner Signature (If Indicated): Date CC: No Primary Care Physician EMERGENCY DEPARTMENT Observed: 07/26/2017 Status: F Source: ZULEIKA SUMMARY 12:22 AM [facility] REPOSITORY [facility] Medical Records Department [address] [place] [address] Emergency Department Summary 07/26/17 0020 MR#: [id number] Acct: [id number] Name: DANIELA CRAMER Rep #: [id number] : 1975 42 From: Tommy Chavez MD PCP: Care Physician, No Primary Status: REG ER - ER Visit Summary Date of Service: 07/26/17 Chief Complaint: Abdominal pain History of Present Illness: The patient is a 42 F who presents with about 3 weeks of lower abdominal pain. She describes this as aching. She denies any dysuria but does report urinary frequency and urgency. She has had nausea without vomiting or diarrhea. She reports subjective fevers but has not checked temperature. She was seen July 21 in the emergency department and diagnosed with UTI at that time and prescribed Macrobid and Pyridium. She states that over the past day she has also had some pain beginning to radiate into her right flank. Physical Examination: Afebrile vitals are normal Moist mucous membranes Heart regular rate and rhythm Lungs clear Abdomen soft she has some suprapubic tenderness but no guarding no rebound she does have some right CVA tenderness Test Results: Laboratory studies notable for white blood cell count 12.4. Urinalysis shows positive nitrates and small leukocyte esterase but 0-5 WBCs 0-5 RBCs and 10-[address] of the flank shows an adrenal adenoma but no ureteral calculi. Emergency Department Course and Treatment: On review of patient's prior cysts labs she had red blood cells in the urine. She also complains of pain radiating into the right flank which raises concern for possible kidney stone. CT of the flank however shows no ureteral calculus. She does have an incidental adrenal adenoma which she states she has been told previously. On urinalysis she does not have pyuria but she does have bacteria and nitrite so we will treat and send this for culture. Patient was given a prescription for Bactrim and Zofran. While here symptomatically she was treated with IV fluids Toradol and Zofran. Patient was advised on signs and symptoms to monitor for, conditions under which to return to the emergency department. All questions answered at bedside patient was discharged. Treatment Plan: [] Disposition: Discharge Impression: Adrenal adenoma Abdominal pain UTI This note was generated with QuarterSpot dictation software. It may contain incorrect words, spelling, and punctuation that were not noted in review of the chart prior to signing ED Disposition - Plan for ED Patient: Chief Complaint: Complaint Referrals: Care Physician,No Primary [Primary Care Provider] - What to do if you have Problems For any increased pain, shortness of breath, bleeding, nausea or vomiting, chest pain, or any unexpected problems, contact your Primary Care Provider. Call [email or web address] ([phone]) or report to the closest Emergency Room. Call 911 if necessary. 07/26/17 0022 <Electronically signed by Tommy Chavez MD> Date Tommy Chavez MD Cosigner Signature (If Indicated): Date CC: No Primary Care Physician CBC W/DIFF, AUTOMATED Collected: 07/25/2017 Status: F Source: [place]ULEIKA 11:30 PM [facility] REPOSITORY TYPE CODE TESTS RESULT OUT OF RANGE REFERENCE UNITS LAB L100.1000 4.4-11.0 K/mm3 High WBC 12.4 LAB L100.1200 4.2-5.4 M/mm3 Normal RBC 4.82 LAB L100.1300 12.0-15.0 g/dl Normal HGB 14.5 LAB L100.1400 37-47 % Normal HCT 44.8 LAB L100.1500 81-99 fL Normal MCV 92.9 LAB L100.1600 27.0-32.0 pg Normal MCH 30.1 LAB L100.1700 32-36 g/gl Normal MCHC 32.4 LAB L100.1810 11.6-14.6 % Normal RDW CV 12.9 LAB L100.1820 35.1-43.9 fl Normal RDW SD 43.8 LAB L100.1900 150-450 K/mm3 Normal PLT 229 LAB L100.2000 6.2-12.0 fl Normal MPV 10.5 LAB L100.2100 47-70 % Normal NEUT% 55.2 LAB L100.2200 19-41 % Normal LY% 33.1 LAB L100.2300 0-10 % Normal MONO% 8.6 LAB L100.2400 0-5 % Normal EO% 2.7 LAB L100.2500 0-1 % Normal BASO% 0.2 LAB L100.2550 0.0-0.9 % Normal IM GRAN % 0.200 Result Comment: IG% - Immature Granulocytes (promyelocytes, myelocytes and metamyelocytes) > 1% indicates that a LEFT SHIFT is Present. LAB L100.2620 2.0-7.7 X10 3/uL Normal Absolute Neut 6.8 LAB L100.2720 0.83-4.51 X10 3/ul Normal Absolute Lymph 4.10 Performed By: #### L100.0100 #### [facility] [address] [place], [place], [id number] BASIC METABOLIC Collected: 07/25/2017 Status: F Source: ZULEIKA PROFILE (BMP) 11:30 PM [facility] REPOSITORY TYPE CODE TESTS RESULT OUT OF RANGE REFERENCE UNITS LAB L501.0100 74-106 mg/dL Normal GLU 92 LAB L501.1000 7-18 mg/dL Normal BUN 13 LAB L501.1100 0.55-1.02 mg/dL Normal 0.81 CREAT,SERUM Result Comment: The validity of the calculated GFR AND GFRAA in patients over 70 years has not been determined. Clinical correlation is essential. LAB L501.1110 >60 mL/min Normal EST GFR 83 Result Comment: Non- GFR Calc LAB L501.1115 >60 mL/min Normal EST GFR - AA 100 Result Comment: GFR Calc LAB L501.1255 ml/min Normal Estimated CRCL 79.72 LAB L501.1300 10-20 RATIO Normal BUN/CRE 16.0 LAB L501.2200 8.5-10 mg/dL Normal .1 CA 8.9 LAB L501.5300 136-14 mmol/L Normal 5 NA 141 LAB L501.5600 3.5-5. mmol/L Normal 1 K 3.8 LAB L501.5900 98-107 mmol/L High CL 108 LAB L501.6100 21.0-3 mmol/L Normal 2.0 CO2 26.0 LAB L501.6200 5-15 Normal GAP 7 Performed By: #### L500.2500 #### [facility] [address] [facility] [place], [address] ABDOMEN/PELVIS WITHOUT Observed: 07/25/2017 Status: F Source: [place] CONT 10:59 PM [facility] REPOSITORY [facility] Imaging Services [address] [place] [address] Abdomen/Pelvis without Cont MR#: [id number] Acct: [id number] Name: DANIELA CRAMER Rep #: [id number] : 1975 F 42 From: Kingsley Rudolph MD PCP: Care Physician, No Primary Status: REG ER Study: Abdomen/Pelvis without Cont Date of Exam: 07/25/17 Exam# [id number] Ordering Dr: Tommy Chavez MD STUDY: CT ABDOMEN AND PELVIS WITHOUT CONTRAST REASON FOR EXAM: Female, 42 years old. Flank pain. Urinary pain RADIATION DOSAGE (If Supplied By Facility): CTDIvol = ( 22.30 ) mGy, DLP = ( 1130.77 ) mGycm TECHNIQUE: Transaxial images were obtained from the dome of the diaphragm to the symphysis pubis without oral contrast, and without intravenous contrast. Sagittal and coronal images were reconstructed. Individualized dose optimization techniques were used for this CT. COMPARISON: None. FINDINGS: The visualized lung bases are unremarkable. The visualized portions of the heart are within normal limits. Normal liver. There is non-visualization of the gallbladder, which may be secondary to either contraction or a prior cholecystectomy. Normal spleen. Normal pancreas. There is a small, circumscribed, smooth, low attenuation right adrenal mass, consistent with an adrenal adenoma. Normal left adrenal gland. Normal right kidney. Normal left kidney. There is a small hiatal hernia. Normal small intestine. Normal colon. The appendix is visualized and appears normal. Normal abdominal aorta. Normal inferior vena cava. Normal retroperitoneum. Normal urinary bladder. There is absence of the uterus consistent with a prior hysterectomy. Normal abdominal wall. Normal osseous structures. CT/Abdomen/Pelvis without Cont IMPRESSION: Right adrenal adenoma. Hysterectomy. There are no renal stones. There is no hydronephrosis. Electronically Signed: Kingsley Rudolph MD at 23:46 EST , Service support , CC: No Primary Care Physician; Tommy Chavez MD Veterinary Nurse: Signed URINALYSIS, COMPLETE Collected: 07/25/2017 Status: F Source: ZULEIKA 10:13 PM [facility] REPOSITORY Order Comment: Order Date: 07/25/17 Has pt arrived? Y How was Urine Obtained? CLEAN CATCH TYPE CODE TESTS RESULT OUT OF RANGE REFERENCE UNITS LAB L400.3000 Yellow COLOR Normal Yellow LAB L400.3050 Clear Normal CLARITY Sl. Cloudy LAB L400.3200 Normal mg/dl Normal GLUCOSE, UR Normal LAB L400.3300 Negative mg/dL High BILIRUBIN URINE 3 Result Comment: COLOR OF URINE MAY AFFECT DIPSTICK RESULTS. LAB L400.3400 Negative mg/dl Normal KETONE UR Negative LAB L400.3465 1.002-1.030 Normal SP.GR. DIPSTX 1.015 LAB L400.3550 5.0 - 8.0 pH Normal UR 6.5 LAB L400.3600 Negative mg/dl Normal PROT DIPSTX Negative LAB L400.3700 Normal mg/dl High UROBILI 4 LAB L400.3750 Negative High NITRITE UR Positive LAB L400.3780 Negative /ul High OCCULT 50 BLOOD-UR LAB L400.3800 Negative /ul High LEUK ESTERASE 25 LAB L400.4050 0-5 /hpf Normal WBC 0-5 SEEN LAB L400.4100 0-5 /hpf Normal RBC-UA 0-5 SEEN LAB L400.4150 5-10 /hpf Normal SQUAM EPI 10-25 SEEN LAB L400.4300 None Seen /hpf Normal BACTERIA RARE LAB L400.4350 <or=2+ /hpf Normal MUCUS, URINE 0 SEEN LAB L400.4900 Normal AMORPHOUS 1+ URATE Performed By: #### L400.0001 #### [facility] [address] [place], [address] Observed: 07/25/2017 Status: F Source: ZULEIKA CULTURE, URINE 10:13 PM [facility] REPOSITORY Urine Culture Probable skin contamination. ORGANISM 1: Mixed Gram Positive Organisms Blevins Count >100,000 Performed By: #### M100.0650 #### [facility] [address] [facility] [place] [place], [address] EMERGENCY DEPARTMENT Observed: 07/21/2017 Status: F Source: [place]A SUMMARY 4:04 PM [facility] REPOSITORY [facility] Medical Records Department [address] [place] [address] Emergency Department Summary 07/21/17 1344 MR#: [id number] Acct: [id number] Name: DANIELA CRAMER Rep #: [id number] : 1975 42 From: Misael Rollins MD PCP: Care Physician, No Primary Status: DEP ER - ER Visit Summary Date of Service: 07/21/17 Chief Complaint: Abdominal pain History of Present Illness: The patient is a 42 F with no primary care physician. She reports that she has suprapubic abdominal pain began approximately 1 month ago. It is a constant cramping pain. She reports he becomes sharp and stabbing when she urinates. Is 10 out of 10 at worst 910 currently. She has been nauseated, but has not vomited. No diarrhea. Last bowel was 2-3 days ago. No melena or hematochezia. No fever, chills, or flank pain. Physical Examination: Vitals: Stable. Afebrile. General: Well-nourished and well-developed. Head: Normocephalic atraumatic. Neck: Supple, no lymphadenopathy. No JVD. Nontender. Cardiovascular: Regular rate and rhythm. No murmurs. Respiratory: No respiratory distress. Clear to auscultation bilaterally. Abdominal: Soft, mild suprapubic tenderness to palpation, nondistended, normal bowel sounds. No guarding, rebound, or peritoneal signs. Back: Nontender. No CVA tenderness. Extremities: Nontender, no edema. Skin: Normal color, no rash. Neurologic: Alert and oriented 3. Cranial nerves II through XII are intact. Normal strength and sensation. Psych: Normal affect. Test Results: UA is remarkable for leukocytes, blood, 10-25 white blood cells, and 1+ bacteria. There are also 5-10 epithelial cells. Emergency Department Course and Treatment: Patient was treated with Macrobid p.o. She is given a dose of Toradol and Zofran IV. She had an argument with her significant other in the room and became upset. She is given dose of Vistaril p.o. Treatment Plan: Patient will be discharged on Macrobid and Pyridium. Instructed to follow-up the [facility] in 1 week if not improving. Disposition: To home in improved and stable condition. Impression: 1. UTI. This note was generated with QuarterSpot dictation software. It may contain incorrect words, spelling, and punctuation that were not noted in review of the chart prior to signing ED Disposition - Plan for ED Patient: Disposition: Home or Assisted Living Chief Complaint: Abd Pain Instructions: ED UTI Cystitis Female Prescriptions: Ondansetron [Zofran Odt] 4 mg PO Q8H PRN PRN #10 tablet PRN Reason: Nausea Nitrofurantoin Macrocrystals [Macrobid] 100 mg PO Q12 #14 capsule Phenazopyridine HCl [Pyridium] 200 mg PO BID PRN PRN #10 tab PRN Reason: Pain Referrals: [facility] [NON-STAFF] - 1 Week if not improving What to do if you have Problems For any increased pain, shortness of breath, bleeding, nausea or vomiting, chest pain, or any unexpected problems, contact your Primary Care Provider. Call [email or web address] ([phone]) or report to the closest Emergency Room. Call 911 if necessary. 07/21/17 2425 <Electronically signed by Misael Rollins MD> Date Misael Rollins MD Cosigner Signature (If Indicated): Date CC: No Primary Care Physician URINALYSIS, COMPLETE Collected: 07/21/2017 Status: F Source: [place] 12:45 PM [facility] REPOSITORY Order Comment: Has pt arrived? Y How was Urine Obtained? CLEAN CATCH TYPE CODE TESTS RESULT OUT OF RANGE REFERENCE UNITS LAB L400.3000 Yellow COLOR Normal Yellow LAB L400.3050 Clear Normal CLARITY Sl. Cloudy LAB L400.3200 Normal mg/dl Normal GLUCOSE, UR Normal LAB L400.3300 Negative mg/dL High BILIRUBIN URINE 1 Result Comment: COLOR OF URINE MAY AFFECT DIPSTICK RESULTS. LAB L400.3400 Negative mg/dl High KETONE UR 5 LAB L400.3465 1.002-1.030 Normal SP.GR. DIPSTX 1.025 LAB L400.3550 5.0 - 8.0 pH Normal UR 5.0 LAB L400.3600 Negative mg/dl High PROT DIPSTX 30 LAB L400.3700 Normal mg/dl High UROBILI 4 LAB L400.3750 Negative Normal NITRITE UR Negative LAB L400.3780 Negative /ul High OCCULT 150 BLOOD-UR LAB L400.3800 Negative /ul High LEUK ESTERASE 25 LAB L400.4050 0-5 /hpf Normal WBC 0-5 SEEN LAB L400.4100 0-5 /hpf Normal RBC-UA 10-25 SEEN LAB L400.4150 5-10 /hpf Normal SQUAM EPI 5-10 SEEN LAB L400.4300 None Seen /hpf Normal BACTERIA 1+ LAB L400.4350 <or=2+ /hpf Normal MUCUS, URINE 0 SEEN Performed By: #### L400.0001 #### [facility] [address] [place], [address] EMERGENCY DEPARTMENT Observed: 07/17/2017 Status: F Source: [place] SUMMARY 7:45 AM [facility] REPOSITORY [facility] Medical Records Department [address] [place] [address] Emergency Department Summary 07/16/17 2239 MR#: [id number] Acct: [id number] Name: DANIELA CRAMER Rep #: [id number] : 1975 41 From: Jonatan Ross DO PCP: Care Physician, No Primary Status: DEP ER - ER Visit Summary Date of Service: 07/16/17 Chief Complaint: [] Depression History of Present Illness: The patient is a 41 F [] complaining of severe depression. She does report a previous history of suicide attempt and suicidal thoughts however she denies suicidal thoughts at this time. She reports she wants to see the crisis counselor to prevent her from going to the point where she needs to have suicidal thoughts. Denies any self-harm. Reports increased depression as result of not seeing her kids recently. Boyfriend at the bedside reports a 19-year-old son does not visit frequently and the 16-year-old was adopted secondary to the patient's previous suicide attempt several years ago. Physical Examination: [] Afebrile, vital signs stable. Middle- age female in no acute distress. Cardia vascular exam is regular rate and rhythm. Lungs were auscultation. Abdomen soft nontender. Patient is tearful otherwise unremarkable physical examination. Test Results: [] CBC shows elevated white blood cell count at 13.5. BMP normal. HCG negative. Tox screen positive for THC. Ethanol negative. Emergency Department Course and Treatment: [] Patient given oral Ativan for anxiolysis. On serial examination she felt improvement. Crisis counselor interviewed the patient and feel she does not warrant any emergent psychiatric evaluation. Patient feels improved and is amenable to discharge. Treatment Plan: [] Discharge, follow-up with psychiatrist on Thursday. Disposition: [] Discharge, stable. Impression: [] Depression This note was generated with QuarterSpot dictation software. It may contain incorrect words, spelling, and punctuation that were not noted in review of the chart prior to signing ED Disposition - Plan for ED Patient: Chief Complaint: Mental Health Referrals: Care Physician,No Primary [Primary Care Provider] - What to do if you have Problems For any increased pain, shortness of breath, bleeding, nausea or vomiting, chest pain, or any unexpected problems, contact your Primary Care Provider. Call [email or web address] ([phone]) or report to the closest Emergency Room. Call 911 if necessary. 07/17/17 0745 <Electronically signed by Jonatan Ross DO> Date Jonatan Ross DO Cosigner Signature (If Indicated): Date CC: No Primary Care Physician DISCHARGE INSTRUCTION Observed: 07/17/2017 Status: F Source: ZULEIKA 1:40 AM [facility] REPOSITORY [facility] Medical Records Department [address] [place] [address] Discharge Instruction 07/17/17 0139 MR#: [id number] Acct: [id number] Name: DANIELA CRAMER Rep #: [id number] : 1975 41 From: Jonatan Ross DO PCP: Care Physician, No Primary Status: REG ER ED Disposition - Plan for ED Patient: Disposition: Home or Assisted Living Chief Complaint: Mental Health Instructions: ED Depression Referrals: Care Physician,No Primary [Primary Care Provider] - What to do if you have Problems For any increased pain, shortness of breath, bleeding, nausea or vomiting, chest pain, or any unexpected problems, contact your Primary Care Provider. Call [facility] ([phone]) or report to the closest Emergency Room. Call 911 if necessary. 07/17/17 0140 <Electronically signed by Jontaan Ross DO> Date Jonatan Ross DO Cosigner Signature (If Indicated): Date CC: No Primary Care Physician CBC W/DIFF, AUTOMATED Collected: 07/16/2017 Status: F Source: [place]A 10:25 PM [facility] REPOSITORY TYPE CODE TESTS RESULT OUT OF RANGE REFERENCE UNITS LAB L100.1000 4.4-11.0 K/mm3 High WBC 13.5 LAB L100.1200 4.2-5.4 M/mm3 Normal RBC 4.83 LAB L100.1300 12.0-15.0 g/dl Normal HGB 14.8 LAB L100.1400 37-47 % Normal HCT 44.4 LAB L100.1500 81-99 fL Normal MCV 91.9 LAB L100.1600 27.0-32.0 pg Normal MCH 30.6 LAB L100.1700 32-36 g/gl Normal MCHC 33.3 LAB L100.1810 11.6-14.6 % Normal RDW CV 13.0 LAB L100.1820 35.1-43.9 fl Normal RDW SD 43.5 LAB L100.1900 150-450 K/mm3 Normal PLT 262 LAB L100.2000 6.2-12.0 fl Normal MPV 10.0 LAB L100.2100 47-70 % Normal NEUT% 68.1 LAB L100.2200 19-41 % Normal LY% 24.2 LAB L100.2300 0-10 % Normal MONO% 6.1 LAB L100.2400 0-5 % Normal EO% 1.3 LAB L100.2500 0-1 % Normal BASO% 0.2 LAB L100.2550 0.0-0.9 % Normal IM GRAN % 0.100 Result Comment: IG% - Immature Granulocytes (promyelocytes, myelocytes and metamyelocytes) > 1% indicates that a LEFT SHIFT is Present. LAB L100.2620 2.0-7.7 X10 3/uL High Absolute Neut 9.1 LAB L100.2720 0.83-4.51 X10 3/ul Normal Absolute Lymph 3.26 Performed By: #### L100.0100 #### [facility] [place], [place], [id number] BASIC METABOLIC Collected: 07/16/2017 Status: F Source: ZULEIKA PROFILE (BMP) 10:25 PM [facility] REPOSITORY TYPE CODE TESTS RESULT OUT OF RANGE REFERENCE UNITS LAB L501.0100 70-110 mg/dL Normal GLU 101 LAB L501.1000 7-18 mg/dL Low BUN 5 LAB L501.1100 0.55-1.02 mg/dL Normal 0.84 CREAT,SERUM Result Comment: The validity of the calculated GFR AND GFRAA in patients over 70 years has not been determined. Clinical correlation is essential. LAB L501.1110 >60 mL/min Normal EST GFR 80 Result Comment: Non- GFR Calc LAB L501.1115 >60 mL/min Normal EST GFR - AA 97 Result Comment: GFR Calc LAB L501.1255 ml/min Normal Estimated CRCL 77.65 LAB L501.1300 10-20 RATIO Low BUN/CRE 6.0 LAB L501.2200 8.5-10 mg/dL Normal .1 CA 9.2 LAB L501.5300 136-14 mmol/L Normal 5 NA 141 LAB L501.5600 3.5-5. mmol/L Normal 1 K 3.6 LAB L501.5900 98-107 mmol/L Normal CL 107 LAB L501.6100 21.0-3 mmol/L Normal 2.0 CO2 29.0 LAB L501.6200 5-15 Normal GAP 5 Performed By: #### L500.2500 #### [facility] [address] [place], [place], [id number] ALCOHOL, BLOOD Collected: 07/16/2017 Status: F Source: ZULEIKA ([facility])-SERUM 10:25 PM [facility] REPOSITORY TYPE CODE TESTS RESULT OUT OF RANGE REFERENCE UNITS LAB L501.9100 mg/dL Normal SERUM < 3.0 ETOH Result Comment: The serum:whole blood ethanol ratio is approximately 1.14 and varies slightly with hematocrit. Medical Alcohol reference interval and critical value in non-tolerant individuals; 50 - 100 Impairment 100 Intoxication 100 - 250 Severe Poisoning 250 - 400 Deep/possible fatal coma Performed By: #### L501.9100 #### [facility] [address] [facility] [place], [place], [address] ,SERUM,HCG QUALI. Collected: Status: F Source: ZULEIKA 07/16/2017 10:25 PM [facility] REPOSITORY TYPE CODE TESTS RESULT OUT OF REFERENCE UNITS RANGE LAB L700.7000 0-9 Nonpreg Negative Normal HCGSQUAL NEGATIVE LAB L700.6700 =>Qualitative mIU/mL Normal HCG Qual < 1 triggr Performed By: #### L700.6800 #### [facility] [address] [place], [address] URINE DRUG SCREEN Collected: 07/16/2017 Status: F Source: ZULEIKA (VISTA) 10:15 PM [facility] REPOSITORY TYPE CODE TESTS RESULT OUT OF RANGE REFERENCE UNITS LAB L505.0075 TO BE Normal CONFIRMED Result Comment: CONFIRMATORY TESTING FOR ALL POSITIVE URINE DRUG SCREEN RESULTS WILL ONLY BE SENT OUT UPON PHYSICIAN ORDER. VISTA Urine Drug Screen methods provide only preliminary analytical test results. A more specific alternate chemical method must be used in order to obtain a confirmed analytical result. Gas chromatography/mass spectrometery (GC/MS) is the preferred confirmatory method. Clinical consideration and professional judgement should be applied to any drug of abuse test result, particularly when preliminary positive results are used. URINE TCA TESTING MUST BE ORDERED SEPARATELY. USE TEST MNEMONIC: UTCA LAB L505.5005 VISTA UDS PH 5 Normal LAB L505.5015 <1000 ng/mL AMPHETAMINES Normal NEGATIVE LAB L505.5025 < 200 ng/mL BARBITIURATES Normal NEGATIVE LAB L505.5035 < 200 ng/mL BENZODIAZIPINE Normal NEGATIVE LAB L505.5045 < 300 ng/mL COCAINE Normal NEGATIVE LAB L505.5055 < 500 ng/mL ECSTACY Normal NEGATIVE LAB L505.5065 < 300 ng/mL METHADONE Normal NEGATIVE LAB L505.5075 < 300 ng/mL OPIATES Normal NEGATIVE LAB L505.5085 < 25 ng/mL PCP Normal NEGATIVE LAB L505.5095 < 50 High ng/mL THC POSITIVE Performed By: #### L505.5000 #### [facility] [address] [place], [address] 12 LEAD ELECTROCARDIOGRAM Observed: 07/16/2017 Status: F Source: WILSEY 12:13 PM [facility] REPOSITORY [facility] Cardiovascular Services [facility] [place] [address] 12 Lead EKG 07/13/17 2207 MR#: [id number] Acct: [id number] Name: DANIELA CRAMER Rep #: [id number] : 1975 41 From: Basil Hooks MD Attending Dr: Status: DEP ER Ordering Dr: Woody Fernandes MD Date: 07/13/17 Location: ED Sex: F C Admitted: Test Reason : CP Blood Pressure : / mmHG Vent. Rate : 070 BPM Atrial Rate : 070 BPM P-R Int : 150 ms QRS Dur : 086 ms QT Int : 402 ms P-R-T Axes : 025 092 018 degrees QTc Int : 434 ms Normal sinus rhythm Normal ECG Confirmed by BASIL HOOKS ([id number]), content editor ROGER MURO ([id number]) on 07/16/2017 12:13:27 PM Referred By: ANGELIA Confirmed By:BASIL HOOKS 07/16/17 1213 Date Basil Hooks MD CC: No Primary Care Physician Signed ALLERGIES ALLERGIES DATE TYPE / CODE NAME / CODE REACTION SEVERITY SOURCE Drug dicyclomine Vomiting Unknown [place] 9 Allergy/681742348( HCl/V492555612(RX Community SNOM[facility]) NORM) Hospital Repository Drug tramadol Anaphylaxis Unknown [place] 9 Allergy/441435927( HCl/I626854924(RX Community SN[facility]) NORM) Hospital Repository Drug cephalexin Swelling Unknown [place] 9 Allergy/887169537( monohydrate/F0000 Community SNOMED CT) 64436(RXNORM) Hospital Repository Drug NSAIDS Vomiting Unknown [place] 9 Allergy/533881404( (Non-Steroidal Community SNOMED CT) Anti-Inflamma/F00 Hospital 7591329(RXNORM) Repository Drug lithium/I22003493 Other Unknown [place] 9 Allergy/313903995( 2(RXNORM) Community SNOM[facility]) Hospital Repository Drug morphine/G2731979 Vomiting Unknown [place] 9 Allergy/252920451( 45(RXNORM) Community SNOM[facility]) Hospital Repository Drug ibuprofen/W345456 Vomiting Unknown [place] 9 Allergy/181386203( 377(RXNORM) Community SNOM[facility]) Hospital Repository Miscellaneous STEROIDS Other Unknown [place] 9 Allergy/459434020( Community SNOM[facility] CT) Hospital Repository Drug doxycycline/F0060 Rash Unknown [place] 9 Allergy/903926924( 84165(RXNORM) Community SNOM[facility] CT) Hospital Repository Drug vilazodone/M70794 Rash Unknown [place] 9 Allergy/399000571( 3753(RXNORM) Community SNOM[facility]) Hospital Repository Drug triamcinolone Vomiting Unknown [place] 8 Allergy/161937162( acetonide/B834670 Community SNOM[facility] CT) 189(RXNORM) Hospital Repository Drug STEROID/33045798( Moderate Carter Pomerene Allergy/427723157( RXNORM) ([facility]) Modifier) Hospital (Qualifier Repository Value) Drug NSAID/36394855(RX Moderate Carter Pomerene Allergy/434012763( NORM) ([facility]) Modifier) Hospital (Qualifier Repository Value) Drug NAPROXEN/76984845 Moderate Carter Pomerene Allergy/745129571( (RXNORM) ([facility]) Modifier) Hospital (Qualifier Repository Value) Drug MORPHINE/61842283 Moderate Carter Pomerene Allergy/516384755( (RXNORM) ([facility]) Modifier) Hospital (Qualifier Repository Value) Drug LITHIUM/54997819( Moderate Carter Pomerene Allergy/511737719( RXNORM) ([facility]) Modifier) Hospital (Qualifier Repository Value) Drug BENTYL/95745363(R Moderate Carter Pomerene Allergy/241513606( XNORM) ([facility]) Modifier) Hospital (Qualifier Repository Value) Drug ULTRAM/81282482(R Moderate Carter Pomerene Allergy/395951719( XNORM) ([facility]) Modifier) Hospital (Qualifier Repository Value) ENCOUNTERS ENCOUNTERS ADMIT/DISCHARGE ACCOUNT NUMBER ADMITTING ENCOUNTER LOCATION SOURCE CLASS 07/06/2018/07/07/19 [id number] Emergency [address] ding:ED Repository 07/05/2018/07/05/19 [id number] Emergency [address] ding:ED Repository 06/20/2018/06/20/20 [id number] Emergency BBuilding:ER Felisa [facility] Repository 06/18/2018 [id number] Ambulatory [facility] ding:RAD Repository 06/07/2018/06/07/20 [id number] Ambulatory BBuilding:OL Felisa 18 [facility] Repository 06/03/2018/06/03/20 [id number] Emergency [address] ding:ED Repository 05/21/2018/05/25/20 [id number] Ambulatory BBuilding:DR [place] 18 [facility] Repository 05/13/2018/05/13/20 [id number] Emergency BBuilding:JOSEY [place] 18 [facility] Repository 05/02/2018/05/02/20 [id number] Emergency [address] ding:ED Repository 04/29/2018/04/29/20 [id number] Emergency BBuilding:ER Felisa [address] [place] [address] Repository 04/26/2018/04/26/20 [id number] Emergency [address] ding:ED Repository 04/04/2018/04/04/20 [id number] Emergency [address] ding:ED Repository 03/31/2018/03/31/20 [id number] EDWARD ARCE Emergency [address]in[address] [place] [address] Room: ERBed: [facility] Repository 03/20/2018/03/20/[id number] AMINA Emergency Buildin[address] [place] [address] Room: ERBed: [facility] Repository 03/20/2018/03/20/20 [id number] Emergency BBuilding:JOSEY [place] 18 [facility] Repository 03/18/2018/03/18/20 [id number] Emergency [address] ding:ED Repository 03/13/2018/03/13/20 [id number] Emergency BBuilding:ER Felisa 18 [facility] Repository 02/18/2018/02/19/20 [id number] Emergency [place] ding:ED Repository 02/16/2018/02/17/20 [id number] Ambulatory FELISA Felisa[address] [facility] 02/14/2018/02/15/20 [id number] Emergency BBuilding:ER Felisa 18 [address] [facility] Repository 02/10/2018/02/11/20 [id number] Emergency BBuilding:ER Felisa 18 O [facility] Repository 02/09/2018/02/10/20 [id number] Ambulatory FELISA Felisa[address] ding:[facility] Repository 01/29/2018/01/30/20 [id number] Emergency [address] ding:ED Repository 01/28/2018/01/29/20 [id number] Emergency BBuilding:ER Felisa 18 [facility] Repository 01/17/2018/01/18/20 [id number] Emergency BBuilding:ER Felisa 18 [facility] Repository 01/13/2018/01/15/20 [id number] Emergency [address] ding:ED Repository 01/12/2018/01/13/20 [id number] Emergency BBuilding:ER Felisa 18 [facility] Repository 12/24/2017/12/25/19 [id number] Emergency BBuilding:ER Felisa 18 [facility] Repository 11/22/2017/11/23/19 [id number] Emergency [address] ding:ED Repository 11/09/2017/11/10/19 [id number] Emergency BBuilding:ER [place] 18 [facility] Repository 11/02/2017/11/03/19 [id number] Emergency [address] ding:ED Repository 10/29/2017 [id number] Ambulatory BBuilding:RA Felisa [facility] Repository 10/29/2017/10/30/19 [id number] Ambulatory FELISA Felisa[address] ding:[facility] Repository 10/04/2017/10/05/19 [id number] Emergency [place] 18 [facility] ding:ED Repository 09/03/2017/09/04/19 [id number] Emergency BBuilding:ER Felisa [address] [place] [address] Repository 08/29/2017/08/30/19 [id number] Emergency BBuilding:ER Felisa[address] Repository 08/10/2017/08/10/19 [id number] Emergency [place] [address] [place] [address] ding:ED Repository 08/03/2017/08/04/19 [id number] Emergency [place] ding:ED Repository 07/25/2017/07/26/19 [id number] Emergency [place] ding:ED Repository 07/21/2017/07/21/19 [id number] Emergency [place] [address] ding:ED Repository 07/16/2017/07/17/19 [id number] Emergency [place] [address] [place] [address] ding:ED Repository 07/13/2017/07/13/19 [id number] Emergency Zuleika [place] [address] [place] [address] ding:ED Repository PAYERS PAYERS ENCOUNTER GUARANTOR PAYER SUBSCRIBER SOURCE 07/06/2018 DANIELA Bobby Primary Insurance:[facility] DANIELA Bobby [place] [id number] [facility] [address] Number: [id number] [id number] Repository [address]Fsp: (330) Date:5501-45-56EC [phone] [address]GM: 07/06/2018 Secondary NOT GIVENUNK [place] Insurance:SELF PAY [facility] Number: Effective Repository Date:2018-07-06 07/05/2018 DANIELA Bobby Primary Insurance:[facility] DANIELA Bobby [place] [id number] [facility] Center[facility]: [facility] [address] Number: [id number], [place] [id number] Repository [address]Psy: (330) Date:1669-00-68NM [phone] () [address] [place] [address]OV: 07/05/2018 Secondary NOT GIVENUNK [place] Insurance:SELF PAY [facility] Number: Effective Repository Date:2018-07-05 06/20/2018 DANIELA S Primary [facility]ELA [facility] HOWELLDOB: Insurance:UNITED CARE HOWELLDOB: [facility]FT[facility]Policy [id number] [address] Number: [address] [place], [place] [id number] [place], [place] [address]Ooo: (330) Date:2018-06-20Tel: (HP) 1944-09-02Pwmb [phone] Name:XPO Box ()Tel: (000) [address] [place] [address] 000-0000 () [address]JQ: 06/18/2018 DANIELA S Primary Insurance:[facility] DANIELA S Z[place]ika HOWELLPO BOX [facility] HOWELLDOB: [address] Number: [id number] Hospital [address]Luo: [phone]) [id number] Repository [phone] (HP) Date:1284-01-32WX[address] [address]QN: 06/18/2018 Secondary NOT GIVENUNK [place] Insurance:SELF PAY [facility] Number: Effective Repository Date:2018-06-18 06/07/2018 DANIELA S Primary D[facility]ELA [facility] HOWELLDOB: Insurance:UNITED CARE HOWELLDOB: [facility] [id number] Repository [address] Number: [address] [facility], [place] [id number] [place], [place] [address]Kth: (330) Date:2018-06-07 478[address]Taw: (HP) [id number] [phone] Name:XPO Box ()Tel: (000) [address] [place] [address] 000-0000 (WP) 716[address]JA: 06/03/2018 DANIELA S Primary Insurance:[facility] DANIELA S Zuleika HOWELLPO [facility] HOWELLDOB: [address] Number: [id number] Hospital [address]Vfm: (330) [id number] Repository [phone] (HP) Date:8946-08-90GB [address] [address]VW: 06/03/2018 Secondary NOT GIVENUNK [place] Insurance:SELF PAY [facility] Number: Effective Repository Date:2018-06-03 05/21/2018 DANIELA S Primary D[facility]ELA S [facility] HOWELLDOB: Insurance:[employer] CARE HOWELLDOB: [facility] [id number] [facility] [id number] Repository [address] [place] [address] Number: FISH LIN [id number]: (330) [id number] [place] [address]Tgp: [phone] (HP) Date:2018-05-21 - 8305-00-32Mkbz (HP)Tel: (000) Name:[place] 000-0000 () [address] [place] [address] 60[address]AN: 05/13/2018 DANIELA S Primary DANIELA S [facility] HOWELLDOB: Insurance:[employer] CARE HOWELLDOB: [facility] [id number] [facility] [id number] Repository [address] [place] [address] Number: FISH LIN, [address]Nac: (330) [id number] [place] [address]Wnw: [phone] (HP) Date:2018-05-13 - 6816-47-97Rhli (HP)Tel: (000) Name:[place] Kent 000-0000 () [address] [place] [address] 71276OS: 05/02/2018 DANIELA S Primary Insurance:[facility] DANIELA S [place] HOWELLPO [facility] HOWELLDOB: [address] [place] Number: [id number] Hospital [address]Tpr: ([phone] [id number] Repository [phone] (HP) Date:2554-77-52OT [address] [address]VC: 05/02/2018 Secondary NOT GIVENUNK [place] Insurance:SELF PAY [facility] Number: Effective Repository Date:2018-05-02 04/29/2018 DANIELA S Primary DANIELA S [facility] HOWELLDOB: Insurance:[facility] HOWELLDOB: [facility] [id number] BOX [facility] PLAPolicy [id number] Repository [address] [place] [address] Number: [facility] [address]Dnr: (330 [id number] [place] [address]Mnj: [phone] (HP) Date:2018-04-29 - 4249-57-20Jeak (HP)Tel: 000) Name:XPO Box 000-0000 () [address] [place] [address]PX: 04/26/2018 DANIELA S Primary Insurance:[facility] DANIELA S [place] HOWELLPO [facility] PLANCrichton Rehabilitation CenterELLDOB: [address] Number: [id number] Hospital [address]Twb: [phone] [id number] Repository [phone] (HP) Date:9796-98-89AM [address] [address]LW: 04/26/2018 Secondary NOT GIVENUNK [place] Insurance:SELF PAY [facility] Number: Effective Repository Date:2018-04-26 04/04/2018 DANIELA S Primary Insurance:[facility] DANIELA S Zuleika HOWELLPO [facility] PLANCrichton Rehabilitation CenterELLDOB: [address] [place] Number: [id number] Hospital [address]Qwm: 330 [id number] Repository [phone] (HP) Date:3993-51-68SV [address] [address]VH: 04/04/2018 Secondary NOT GIVENUNK [place] Insurance:SELF PAY [facility] Number: Effective Repository Date:2018-04-04 03/31/2018 DANIELA S Primary DANIELA S Carter Pomerene HOWELLDOB: Insurance:[place] HOWELLDOB: [facility] [id number] [facility] [id number] Hospital [id number] [facility]AN [facility] [id number] Repository [facility] Number: Darrick TIJERINA [id number] [place] [address]Vxg: (330) Date:Plan Name: [id number] [phone] () 03/20/2018 DANIELA S Primary DANIELA S Carter Sneed HOWELLDOB: Insurance:[place] HOWELLDOB: [facility] [id number] [facility] [id number] Hospital [id number] PLAN [facility] [id number] Repository [facility] Number: ASA CHEUNG [place] [id number] [place] [address]Rlx: (330) Date:Plan Name: [id number] [phone] () 03/20/2018 DANIELA S Primary DANIELA Bobby [facility] HOWELLDOB: Insurance:[facility] HOWELLDOB: [facility] [id number] [facility] [id number] Repository [address] [place] [address] Number: [address], [address]Qay: (330) [id number] [place] [address]Stq: [phone] () Date:2018-03-20 - 9513-53-48Hgou ()Tel: (000) Name:XPO Fish 000-0000 () [address] [place] [address] 01960XQ: 03/18/2018 DANIELA S Primary Insurance:[facility] DANIELA S Zuleika HOWELLPO [facility] HOWELLDOB: [place] [address] [place] Number: [id number] Hospital [address]Pur: (330) [id number] Repository [phone] (HP) Date:7684-44-22AE [address] [address]PO: 03/18/2018 Secondary NOT GIVENUNK Zule[place] Insurance:SELF PAY [facility] Number: Effective Repository Date:2018-03-18 03/13/2018 DANIELA S Primary DANIELA [facility] HOWELLDOB: Insurance:[employer]ARE HOWELLDOB: [facility] [id number] [facility] [id number] Repository [address] [place] [address], [place] Number: [place] [id number]: (330) [id number] [place] [address]Gkb: [phone] (HP) Date:2018-03-13 - 5232-67-17Javx (HP)Tel: (000) Name:[place] 000-0000 () [address] [place] [address] 62[address]SM: 02/18/2018 Daniela S Primary Insurance:[facility] Daniela S Pear[place] HowellPO [facility] HowellDOB: [address], [place] Number: [id number] Hospital [address]Qhk: (330) [id number] Repository [phone] (HP) Date:6193-03-03OD [address] [address]UB: 02/18/2018 Secondary NOT GIVENUNK [place] Insurance:SELF PAY [facility] Number: Effective Repository Date:2018-02-18 02/16/2018 DANIELA S Primary DANIELA [place] HOWELLDOB: Insurance:[employer]ARE HOWELLDOB: [facility] [id number] [facility] [id number] Repository [address] [place] [address], [place] Number: [place] [id number]: (330) [id number] [place] [address]Jab: [phone] (HP) Date:2018-02-16 - 2118-27-69Bqnu (HP)Tel: (000) Name:[place] Kent 000-0000 () [address] [place] [address] 55[address]NA: 02/14/2018 DANIELA S Primary DANIELA [place] [facility] HOWELLDOB: Insurance:[employer]ARE HOWELLDOB: [facility] [id number] [facility] [id number] Repository [address] [place] [address], [place] Number: [place] [address]Zzu: (330) [id number] [place] [address]Gsz: [phone] (HP) Date:2018-02-14 - 9623-51-48Ypzn (HP)Tel: (000) Name:[place] 000-0000 () [address] [place] [address] 20715MI: 02/10/2018 DANIELA S Primary DANIELA S [facility] HOWELLDOB: Insurance:[employer]ARE HOWELLDOB: [facility] [id number] [facility] [id number] Repository [address] [place] [address] Number: FISH LIN [id number]: (330) [id number] [place] [address]Vkq: [phone] (HP) Date:2018-02-10 - 3487-04-68Imnw (HP)Tel: (000) Name:[place] Kent 000-0000 () [address] [place] [address] 64[address]HX: 02/09/2018 DANIELA S Primary [facility]ELLD[facility]: Insurance:[facility] HOWELLDOB: [facility] [id number] [facility] [id number] Repository [address] [place] [address] Number: FISH LIN, [address]Wow: (330) [id number] [place] [address]Jfb: [phone] (HP) Date:2018-02-09 - 7151-92-83Opoe (HP)Tel: (000) Name:[place] 000-0000 () [address] [place] [address] 02702SZ: 01/29/2018 Daniela S Primary Insurance:[facility] Daniela S [place] HowellPO [facility] HospitalellD[facility]: [facility] [address], [place] Number: [id number] Hospital [address]Vfy: (330) [id number] Repository [phone] (HP) Date:5116-35-50UF [address] [address]FA: 01/29/2018 Secondary NOT GIVENUNK [place] Insurance:SELF PAY [facility] Number: Effective Repository Date:2018-01-29 01/28/2018 DANIELA S Primary DANIELA [facility] HOWELLDOB: Insurance:[place] CARE HOWELLDOB: [facility] [id number] BOX [facility] [id number] Repository [place], [place] Number: [place] [id number]: (330) [id number] [place] [address]Ydk: [phone] (HP) Date:2018-01-28 - 2006-98-31Mtli (HP)Tel: (000) Name:[place] 000-0000 () [address] [place] [address] 703[address]OG: 01/17/2018 DANIELA S Primary D[facility]ELA [facility] HOWELLDOB: Insurance:[employer]ARE HOWELLDOB: [facility] [id number] [facility] [id number] Repository [address] [place] [address] Number: FISH LIN, [id number]: (330) [id number] [place] [address]Gkl: [phone] (HP) Date:2018-01-17 - 5113-43-89Yszo (HP)Tel: (000) Name:[place] 000-0000 () [address] [place] [address] 92463PE: 01/13/2018 Daniela S Primary Insurance:[facility] Daniela S Pear[place] [facility] HowellDOB: [address] [place] Number: [id number] Hospital [address]Qgk: (330 [id number] Repository [phone] (HP) Date:9232-74-53HC[address] [address]JT: 01/13/2018 Secondary NOT GIVENUNK [place] Insurance:SELF PAY [facility] Number: Effective Repository Date:2018-01-13 01/12/2018 [facility]A S [facility] Insurance:UNITED CARE HOWELLDOB: [facility] [place] [id number] [facility] [id number] Repository [place], [place] Number: FISH LIN [id number]: [phone]) [id number] [place] [address]Vfc: [phone] (HP) Date:2018-01-12 - [id number] (HP)Tel: (000) Name:[place] 000-0000 () [address] [place] [address] 75950OM: 12/24/2017 DANIELA S Primary DANIELA S [facility] HOWELLDOB: Insurance:[place] [facility] HOWELLDOB: [facility] [place] [id number] [facility] [id number] [facility] [place] Number: FISH LIN [id number]: [phone]) [id number] [place] [address]Mzh: [phone] (HP) Date:2017-12-24 - [id number] (HP)Tel: (000) Name:[place] 000-0000 () [address] [place] [address] 41109TZ: 11/22/2017 Daniela S Primary Insurance:[facility] Daniela S [place]uleika HowellPO [facility] [place] [address], [place] Number: [id number] Hospital [address]Oxq: [phone]) [id number] Repository [phone] (HP) Date:[id number] [address]WH: 11/22/2017 Secondary NOT GIVENUNK [place] Insurance:SELF PAY [facility] Number: Effective Repository Date:2017-11-22 11/09/2017 DANIELA S Primary DANIELA S [facility] HOWELLDOB: Insurance:[place] [facility] HOWELLDOB: [facility] [place] [id number] [facility] [id number] Repository [place], [place] Number: FISH LIN [id number]: (330) [id number] [place] [address]Qmw: [phone] (HP) Date:2017-11-09 - [id number] (HP)Tel: (000) Name:[place] 000-0000 (WP) [address] [place] [address] 91544LD: 11/02/2017 Daniela S Primary Insurance:[facility] Daniela S Zuleika HowellPO [facility] HowellDOB: [address] Number: [id number] Hospital [address]Woz: [phone]) [id number] Repository [phone] (HP) Date:0414-67-73OU [address] [address]JY: 11/02/2017 Secondary NOT GIVENUNK [place] Insurance:SELF PAY [facility] Number: Effective Repository Date:2017-11-02 10/29/2017 DANIELA S Primary DANIELA S [facility] HOWELLDOB: Insurance:UNITED CARE HOWELLDOB: [facility] [place] [id number] [facility] [id number] Repository [address] [place] [address] Number: FISH [address], [id number]: (330) [id number] [place] [address]Kax: [phone] (HP) Date:2017-10-29 - [id number] (HP)Tel: (000) Name:[place] 000-0000 () [address] [place] [address] 928[address]WW: 10/29/2017 DANIELA S [facility]: [facility] HOWELLDOB: [facility] [place] [id number] [facility] [id number] Repository [address] [place] [address] Number: FISH [address], [id number]: (330) [id number] [place] [address]Dwt: [phone] (HP) Date:2017-10-29 - [id number] (HP)Tel: (000) Name:[place] 000-0000 (WP) [address] [place] [address] 81742KB: 10/04/2017 Daniela S Primary Insurance:[facility] Daniela S Zuleika HowellPO [facility] HowellDOB: [address], [place] Number: [id number] Hospital [address]Cas: [phone]) [id number] Repository [phone] (HP) Date:1604-45-55UF [address] [address]LL: 10/04/2017 Secondary NOT GIVENUNK [place] Insurance:SELF PAY [facility] Number: Effective Repository Date:2017-10-04 09/03/2017 DANIELA S Primary DANIELA S [facility] HOWELLDOB: Insurance:UNITED CARE HOWELLDOB: [facility] [place] [id number] [facility] [id number] Repository [address] [place] [address], [place] Number: [place], [id number]: [phone]) [id number] [place] [address]Bxg: [phone] (HP) Date:2017-09-03 - [id number] (HP)Tel: (000) Name:[place] 000-0000 () [address] [place] [address] 18452FP: 08/29/2017 DANIELA S Primary DANIELA S [facility] HOWELLDOB: Insurance:UNITED CARE HOWELLDOB: [facility] [place] [id number] [facility] [id number] Repository [address] [place] [address] Number: FISH LIN, [id number]: [phone]) [id number] [place] [address]Exw: [phone] (HP) Date:2017-08-29 - [id number] (HP)Tel: (000) Name:[place] 000-0000 (WP) [address] [place] [address] 923[address]FH: 08/10/2017 Daniela S Primary Insurance:[facility] Daniela S Zuleika AnastacioellPO [facility] HowellDOB: [address], [place] Number: [id number] [facility] [id number]: (330) [id number] Repository [phone] (HP) Date:0261-55-44OW [address] [address]RH: 08/10/2017 Secondary NOT GIVENUNK [place] Insurance:SELF PAY [facility] Number: Effective Repository Date:2017-08-10 08/03/2017 Daniela S Primary Insurance:[facility] Daniela Bobby [place] HowellPO [address]OX [facility] PLANPolicy HowellDOB: [address] [place] Number: [id number] Hospital [address]Xuv: 330 [id number] Repository [phone] () Date:6567-14-39TM [address] [address]HN: 08/03/2017 Secondary NOT GIVENUNK [place] Insurance:SELF PAY [facility] Number: Effective Repository Date:2017-08-03 07/25/2017 Daniela S Primary Insurance:[facility] Daniela S Zuleika HowellPO [address]OX [facility] PL[facility] HowellDOB: [address] [place] Number: [id number] Hospital [address]Oab: 330 [id number] Repository [phone] () Date:1352-90-10QX [address] [address]DX: 07/25/2017 Secondary NOT GIVENUNK [place] Insurance:SELF PAY [facility] Number: Effective Repository Date:2017-07-25 07/21/2017 Daniela S Primary Insurance:[facility] Daniela S [place] HowellPO [address] [facility] HowellDOB: [address] [place] Number: [id number] Hospital [address]Zvo: 330 [id number] Repository [phone] () Date:8247-59-17IY [address] [address]QV: 07/21/2017 Secondary NOT GIVENUNK [place] Insurance:SELF PAY [facility] Number: Effective Repository Date:2017-07-21 07/16/2017 Daniela S Primary Insurance:[facility] Daniela S Zuleika HowellP [address] [facility] HowellDOB: [address] [place] Number: [id number] Hospital [address]Hdf: 330 [id number] Repository [phone] () Date:2260-19-53HE [address] [place] [address] 1977[address]EM: 07/16/2017 Secondary NOT GIVENUNK [place] Insurance:SELF PAY [facility] Number: Effective Repository Date:2017-07-16 07/13/2017 Daniela Bobby Primary Insurance:[facility] Daniela Bobby Zuleika Ricdba641 [facility] Number: [id number] [id number] Repository [address]Byg: (330) Date:9291-29-65JC [phone] () [address] [place] [address] 87[address]JB: 07/13/2017 Secondary NOT GIVENUNK [place] Insurance:SELF PAY [facility] Number: Effective Repository Date:2017-07-13
== END 2018-06-03 22:55 | disposition home or self-care (01) ==
PROVIDERS: Emergency Provider Emergency Medicine; Family Provider Nurse Practitioner Primary Care; PCP Nurse Practitioner Primary Care
DX: R07.89 Other chest pain (principal); M54.6 Pain in thoracic spine; M79.7 Fibromyalgia; G89.4 Chronic pain syndrome; Z79.899 Other long term (current) drug therapy; X50.0XXA Overexertion from strenuous movement or load, initial encounter
CPT/HCPCS: 71045; 80048; 83880; 84484; 85025; 93005; 96361; 96374; 96375; 99285; J7030; A4216; J2405

== ENCOUNTER → 2018-06-18 12:54 | Outpatient (CLI) | payer MEDICAID, SELFPAY ==
[2018-06-03 21:30] VITALS: BMI 43.7
--- NOTE | 2018-06-18 12:59 | RAD_ITS ---
HISTORY: COUGH AND PNEUMONIA x2-3 WEEKS EXAM:XR Chest 2 Views: COMPARISON: 06/03/2018 and 04/26/2018 FINDINGS: With comparison previous, no significant change. Normal heart size. No vascular congestion, pleural effusion, or acute pulmonary infiltration. No pneumothorax. Small hiatal hernia. IMPRESSION.: 1. No acute disease or significant change. 2. Small hiatal hernia. at [id number] Reported and signed by: Fareed Ivan MD Electronically Signed: Fareed Ivan, at 3:34 EST Tel , Service support , RAD/Chest PA and Lateral
== END ==
PROVIDERS: Family Provider Nurse Practitioner Primary Care; PCP Nurse Practitioner Primary Care; Referring Provider Nurse Practitioner Family; Visit Provider Nurse Practitioner Family
DX: J15.9 Unspecified bacterial pneumonia (principal)
CPT/HCPCS: 71046

== ENCOUNTER 2018-07-05 17:29 | Emergency (ER) | payer MEDICAID, SELFPAY ==
[2018-07-05 17:30] VITALS: BP 119/76; PULSE 95; RESP 17; TEMP 37.3; O2SAT 96; BMI 44.5
--- NOTE | 2018-07-05 18:03 | ED.RN ---
1735 Pt verbalizes SI. Suicide precautions initiated at this time. Pt placed in gown, belongings removed from room. Room cleared out per protocol. Sitter at bedside.
--- NOTE | 2018-07-05 18:17 | ED.VISSUMM ---
- ER Visit Summary Date of Service: 07/05/18 Chief Complaint: Depression History of Present Illness: The patient is a 42 F presenting with depression. Patient states that she has been feeling overwhelmed for the past month. She states that her ex's son who lives with has been causing her stress. She states that she has been wishing that she is not here. She has no current suicide plan. She has been seeing a counselor at the [facility]. Her next appointment is on Thursday. Recently her Lamictal was increased from 100 mg to 150 mg. She has a history of depression, bipolar, anxiety, PTSD. She admits to marijuana use. Denies alcohol use. Denies other complaints. Physical Examination: Vitals are stable. Patient is afebrile. Alert no acute distress. HEENT exam is unremarkable. Neck is supple. Lungs are clear and equal bilaterally. Heart is regular rate and rhythm. Abdomen is soft nontender nondistended. Extremities are unremarkable. Skin is warm and dry. No focal neurologic deficit. Depressed affect Remainder of exam is unremarkable. Emergency Department Course and Treatment: BMP unremarkable. HCG negative. Alcohol negative. Patient has no current suicidal ideation. Social work discussed at length with the patient and she agreed to safety plan. She will follow-up with counseling center this week. She is advised to return to ED for any worsening complaints. Disposition: Discharge home Impression: Depression This note was generated with [employer] dictation software. It may contain incorrect words, spelling, and punctuation that were not noted in review of the chart prior to signing ED Disposition - Plan for ED Patient: Chief Complaint: Suicidal Instructions: ED Depression Referrals: Counseling,Center [GROUP OF PHYSICIANS] - Kimberly Gross NP-C [Primary Care Provider] -
--- NOTE | 2018-07-05 18:25 | CM.ED ---
SOCIAL WORK ASSESSMENT REFERRAL DATE:07/05/18 DATE OF ASSESSMENT:07/05/18 INFORMANT: SELF REFERRAL REASON FOR CONSULT: SUICIDAL INFORMATION OBTAINED FROM: PT, NURSE AND DR. TURK LIVING ARRANGEMENTS: PT LIVES HOME WITH EX-, SLIME CRAMER AND SLIME'S 18 Y/O SON, KARL. EMPLOYMENT/FINANCIAL: PT IS DISABLED D/T MENTAL HEALTH AND RECEIVES SSI. PT DENIES ANY ISSUES WITH FINANCES. SUPPORTS: PT REPORTS GOOD SUPPORT FROM HER MOTHER, FRIEND, AND THE COUNSELING CENTER. SOCIAL/FAMILY STRESSORS: PT VOICES MANY SOCIAL ISSUES/DYNAMICS WITH EX- AND HIS SON. PT DISCUSSED FEELING OVERWHELMED D/T RECENT MOVE. MENTAL HEALTH HX: PT HAS BEEN FOLLOWING WITH THE COUNSELING CENTER ON AND OFF SINCE THE AGE OF 15. PT STATES HAS BEEN DX WITH PTSD, GENERALIZED ANXIETY, MAJOR DEPRESSIVE DISORDER, AND BIPOLAR DISORDER. PT STATES FOLLOWS WITH PSYCHIATRIST WHO PRESCRIBES ALL MEDICATIONS. PT STATES HAS APPOINTMENT EVERY TWO WEEKS WITH PSYCHIATRIST THEY HAVE MADE SOME CHANGES WITH MEDICATIONS. PT STATES HAS COUNSELING APPOINTMENT ON THURSDAY AT 11AM THAT SHE DOES NOT WANT TO MISS SHE IS NOW STARTING BACK UP WITH COUNSELING SERVICES. SUBSTANCE ABUSE HX: PT ADMITS TO HX OF SUBSTANCE ABUSE. PT STATES I'VE USED EVERYTHING, I JUST HAVE NOT SHOT UP. PT STATES DOES NOT USE ANY DRUGS CURRENTLY AND STATES LAST USE WAS ALMOST 2 YEARS AGO. PT DOES STATE ACTIVELY USES MARIJUANA 2-3 TIMES A WEEK. INTERVENTIONS: THIS WORKER TO MAKE FOLLOW UP PHONE CALL TO PT AND COUNSELING CENTER TOMORROW MORNING. PT REPORTS HAS COUNSELING APPOINTMENT WITH THE COUNSELING CENTER ON 07/07/17. DISCUSSED WITH ED PHYSICIAN AND RECOMMENDED THE REMOVAL OF SITTER THIS PROTOCOL IS NOT NECESSARY AT THIS TIME. RECOMMEND SAFETY PLAN HOME WITH EX-, SLIME. ASSESSMENT: PT IS A 42 Y/O FEMALE WHO PRESENTS TO THE ED WITH SUICIDAL IDEATIONS. THIS WORKER COMPLETED THE [place]-SUICIDE SEVERITY RATING SCALE WITH PT. PT DENIES ANY SUICIDAL THOUGHTS OR PLAN. PT STATES WAS FEELING OVERWHELMED AND DEALING WITH STRESS AT HOME SHE AND EX- RECENTLY MOVED TO NEW HOUSING. PT ADMITS TO HX OF MENTAL HEALTH AND STATES FOLLOWS WITH THE COUNSELING CENTER. PT REPORTS HAS COUNSELING APPOINTMENT ALREADY SCHEDULED FOR 07/07/18 AT 11AM. PT VOICES I DO NOT WANT TO MISS THAT APPOINTMENT I AM STARTING BACK UP WITH COUNSELING SERVICES. PT STATES IS COMPLIANT WITH PRESCRIBED MEDICATIONS. PT ADMITS TO HX OF SUBSTANCE ABUSE AND STATES CURRENTLY USES MARIJUANA 2-3 TIMES A WEEK. DISCUSSED PT'S SOCIAL STRESSORS AND PROVIDED EMOTIONAL SUPPORT AND EDUCATION. PT CONTINUES TO DENY SI THROUGHOUT ASSESSMENT. DISCUSSED SAFE D/C PLANNING. PT FEELS SAFE RETURNING HOME WITH EX- BEFORE. PT IN AGREEMENT FOR THIS WORKER TO CALL EX- TO CONFIRM PLAN AND DISCUSS TRANSPORT HOME. DISCUSSED THIS WORKER'S ASSESSMENT WITH DR. TURK AND NURSING. ALL IN AGREEMENT WITH PLAN. PLAN: SAFETY PLAN FOR HOME WITH EX- AND FOLLOW UP WITH THE COUNSELING CENTER ON 07/07/18.
--- NOTE | 2018-07-05 18:26 | ED.RN ---
Suicide precautions discontinued at this time. Belongings given back to patient.
--- NOTE | 2018-07-05 18:45 | CM.ED ---
SOCIAL WORK NOTE PT PROVIDED WITH CONTACT INFORMATION FOR 24 HOUR CRISIS LINE AND WAS GIVEN THIS WORKER'S CONTACT INFORMATION. PT IN AGREEMENT WITH SAFETY PLAN FOR HOME WITH EX- BEFORE AND GAVE PERMISSION FOR THIS WORKER TO CALL AND DISCUSS SAFETY PLAN AND TRANSPORT HOME WITH EX-. PT CONTINUES TO DENY ANY SUICIDAL IDEATION OR PLAN. PT STATES FEELS SHE JUST NEEDED SOMEONE TO TALK TO. THIS WORKER SPOKE WITH PT'S EX-, SLIME CRAMER [phone]. INTRODUCED THIS WORKER'S ROLE AND EXPLAINED SAFETY PLAN. SLIME VOICED FRUSTRATION WITH HER ATTITUDE. EDUCATION AND SUPPORT PROVIDED. SLIME IN AGREEMENT WITH SAFETY PLAN AND STATES IS ABLE TO TRANSPORT PT HOME. UPDATED NURSING AND DR. TURK ON THE ABOVE. BHUPINDER RIBERA, PIPE ORGAN MECHANIC APPRENTICE, MANAGER PERSONNEL SELECTION.
--- NOTE | 2018-07-05 18:47 | DCINST.ED_ITS ---
ED Disposition - Plan for ED Patient: Chief Complaint: Suicidal Instructions: ED Depression Referrals: Kimberly Gross, RENETTA-C [Primary Care Provider] - Counseling,Center [GROUP OF PHYSICIANS] -
--- NOTE | 2018-07-05 18:47 | ED.DEP ---
ED Disposition - Plan for ED Patient: Chief Complaint: Suicidal Instructions: ED Depression Referrals: Kimberly Gross, RNEETTA-C [Primary Care Provider] - Counseling,Center [GROUP OF PHYSICIANS] -
[2018-07-05 18:59] LABS: Anion Gap 8 (5-15); BUN 7 mg/dL (7-18); BUN/Creat Ratio 8.8 RATIO (10-20); Calcium,Total 8.8 mg/dL (8.5-10.1); Chloride 106 mmol/L (98-107); EST Glomerular Filtration Rate 85 mL/min (>60); Est Glom Filt Rate - Afr Amer 102 mL/min (>60); Estimated Creatinine Clearance 80.72 ml/min; Glucose 99 mg/dL (74-106); Potassium 4.1 mmol/L (3.5-5.1); Sodium Level 140 mmol/L (136-145)
[2018-07-05 19:03] LABS: Alcohol, Blood (Medical)-Serum < 3.0 mg/dL
[2018-07-05 19:19] LABS: Pregnancy, Serum, hCG Quali. NEGATIVE Negative (0-9 Nonpreg)
[2018-07-05 19:45] VITALS: BP 131/83; PULSE 68; RESP 17; O2SAT 99
--- NOTE | 2018-07-06 14:47 | CM.ED ---
SOCIAL WORK NOTE PHONE CALL MADE TO PT FOR FOLLOW UP ON SAFETY PLAN. PT STATES FEELING MUCH BETTER TODAY AND LOOKING FORWARD TO COUNSELING APPOINTMENT TOMORROW. PT VERBALIZED ISSUES IN THE HOME D/T SOCIAL DYNAMICS WITH EX-. PT HOPING TO FIND OWN HOUSING. EMOTIONAL SUPPORT AND ACTIVE LISTENING PROVIDED.
== END 2018-07-05 19:47 | disposition home or self-care (01) ==
LOC: ED 18:24
PROVIDERS: Emergency Provider Emergency Medicine; Family Provider Nurse Practitioner Primary Care; PCP Nurse Practitioner Primary Care
DX: F32.9 Major depressive disorder, single episode, unspecified (principal); F41.9 Anxiety disorder, unspecified; F43.10 Post-traumatic stress disorder, unspecified; Z79.899 Other long term (current) drug therapy; Z72.0 Tobacco use
CPT/HCPCS: 80048; 80320; 84703; 99285; G0480

== ENCOUNTER 2018-07-06 18:17 | Emergency (ER) | payer MEDICAID, SELFPAY ==
[2018-07-05 17:30] VITALS: BMI 44.5
[2018-07-06 18:18] VITALS: BP 124/79; PULSE 103; RESP 18; TEMP 36.2; O2SAT 93; BMI 44.6
--- NOTE | 2018-07-06 18:40 | ED.RN ---
sitter at the bedside. belongings removed from the room
--- NOTE | 2018-07-06 18:42 | ED.RN ---
PT HAS 2 CELL PHONES. BOTH CHECKED. PT INFORMED SHE IS PERMITTED TO KEEP HER PHONES LONG SHE IS COOPERATIVE AND IT DOES NOT CAUSE MORE PROBLEMS
--- NOTE | 2018-07-06 18:45 | ED.RN ---
PT C/O NAUSEA AND MIGRAINE. WILL NOTIFY
--- NOTE | 2018-07-06 19:00 | CM.ED ---
SOCIAL WORK NOTE PT PINK SLIPPED BY PD. CASE DISCUSSED WITH DOCTOR. PT TO BE EVALUATED BY CRISIS. FACE TO FACE WITH PT IN ROOM. PT ADMITS TO SUICIDAL IDEATION AND PLAN OF OVERDOSE. PT STATES IT JUST GOT WORSE. EXPLANED CRISIS WOULD BE IN TO ASSESS PT. PT VERBALIZED UNDERSTANDING.
[2018-07-06 19:10] LABS: Absolute Lymphocyte Count 2.26 X10^3/ul (0.83-4.51); Absolute Neutrophil Count 9.5 X10^3/uL (2.0-7.7); Basophil# 0.03 X10^3/uL; Basophil% 0.2 % (0-1); Eosinophils% 0.8 % (0-5); Hematocrit 44.9 % (37-47); Hemoglobin 14.6 g/dl (12.0-15.0); Lymphocyte # 2.26 X10^3/ul (4.0); Lymphocyte % 17.6 % (19-41); Mean Corp Hgb Conc 32.5 g/gl (32-36); Mean Corpuscular Hgb 30.2 pg (27.0-32.0); Mean Platelet Vol. 9.7 fl (6.2-12.0); Monocyte# 0.96 X10^3/uL; Monocyte% 7.5 % (0-10); Neutrophil # 9.47 X10^3/uL (2.7-7.7); Neutrophil % 73.6 % (47-70); POSITIVE COUNT NO; POSITIVE DIFFERENTIAL NO; POSITIVE MORPHOLOGY NO; Platelet Count 250 K/mm3 (150-450); RBC Distribution Width CV 13.5 % (11.6-14.6); Red Blood Count 4.83 M/mm3 (4.2-5.4); White Blood Count 12.9 K/mm3 (4.4-11.0)
--- NOTE | 2018-07-06 19:11 | ED.VISSUMM ---
- ER Visit Summary Date of Service: 07/06/18 Chief Complaint: [Depression and suicidal ideation] History of Present Illness: The patient is a 42 F [presents the emergency department complaint of feeling depressed over the last 2 days. Patient states that she has a plan on overdosing on all her medications. Patient's had increased stressors at home related to her ex- who is a lives with her and recently the ex- son moved in with them as well. Patient denies any auditory or visual hallucinations. Patient denies feeling homicidal. Patient's last hospitalization for psychiatric issues worse more than 2 years ago. Patient also complains of a migraine headache that she has had for couple of days. Patient states she gets frequent headaches and this headache is typical of her migraines. Patient describes it as diffuse and throbbing. She complains of photophobia and nausea. She said no vomiting. She denies any falls or head injuries. She denies any significant other illnesses.] Physical Examination: [HEENT-PERRLA, EOMI. Cranial nerves II through XII grossly intact. TMs clear. Mucous membranes moist. No adenopathy. Cardiovascular-regular rate and rhythm without murmur or ectopy Lungs-clear to auscultation, chest wall stable without crepitus or subcu emphysema Abdomen-normoactive bowel sounds, soft, nontender, no rebound or rigidity, no peritoneal signs. Extremities-intact ?4, normal range of motion, normal pulses, atraumatic] Test Results: [CBC with differential showed a white count of 12.9, hemoglobin 14.6, hematocrit 45, placed 250. Chemistries unremarkable. Toxicology screen positive for marijuana. Alcohol was negative.] Emergency Department Course and Treatment: Case was discussed with crisis who presented to the emergency department to evaluate patient [] Treatment Plan: [Plan will be to transfer to psychiatric facility once evaluation by crisis complete] Disposition: [Pending evaluation by crisis] Impression: [Depression Suicidal ideation] This note was generated with [employer] dictation software. It may contain incorrect words, spelling, and punctuation that were not noted in review of the chart prior to signing <Sherrill Barboas - Last Filed: 07/07/18 00:13> - ER Visit Summary Date of Service: 07/07/18 Chief Complaint: [] History of Present Illness: The patient is a 42 F [] Physical Examination: [] Test Results: [] Emergency Department Course and Treatment: Patient signed out to me. Has been stable. Medically cleared. Evaluated by [facility] under service of Wilfredo Chaparro Treatment Plan: [] Disposition: transfer [facility] Impression: Depression with suicidal ideation This note was generated with [employer] dictation software. It may contain incorrect words, spelling, and punctuation that were not noted in review of the chart prior to signing <Shelton Baca - Last Filed: 07/07/18 03:02> ED Disposition <Sherrill Barbosa - Last Filed: 07/07/18 00:13> <Shelton Baca - Last Filed: 07/07/18 03:02> - Plan for ED Patient: Disposition: Psychiatric Hospital or Unit Chief Complaint: Suicidal Diagnosis: Depression with suicidal ideation Referrals: Kimberly Gross NP-C [Primary Care Provider] -
--- NOTE | 2018-07-06 19:14 | ED.DCSUM_ITS ---
- ER Visit Summary Date of Service: 07/06/18 Chief Complaint: [Depression and suicidal ideation] History of Present Illness: The patient is a 42 F [presents the emergency department complaint of feeling depressed over the last 2 days. Patient states that she has a plan on overdosing on all her medications. Patient's had increased stressors at home related to her ex- who is a lives with her and recently the ex- son moved in with them as well. Patient denies any auditory or visual hallucinations. Patient denies feeling homicidal. Patient's last hospitalization for psychiatric issues worse more than 2 years ago. Patient also complains of a migraine headache that she has had for couple of days. Patient states she gets frequent headaches and this headache is typical of her migraines. Patient describes it as diffuse and throbbing. She complains of photophobia and nausea. She said no vomiting. She denies any falls or head injuries. She denies any significant other illnesses.] Physical Examination: [HEENT-PERRLA, EOMI. Cranial nerves II through XII gr ossly intact. TMs clear. Mucous membranes moist. No adenopathy. Cardiovascular-regular rate and rhythm without murmur or ectopy Lungs-clear to auscultation, chest wall stable without crepitus or subcu emphysema Abdomen-normoactive bowel sounds, soft, nontender, no rebound or rigidity, no peritoneal signs. Extremities-intact ?4, normal range of motion, normal pulses, atraumatic] Test Results: [CBC with differential showed a white count of 12.9, hemoglobin 14.6, hematocrit 45, placed 250. Chemistries unremarkable. Toxicology screen positive for marijuana. Alcohol was negative.] Emergency Department Course and Treatment: Case was discussed with crisis who presented to the emergency department to evaluate patient [] Treatment Plan: [Plan will be to transfer to psychiatric facility once evaluation by crisis complete] Disposition: [Pending evaluation by crisis] Impression: [Depression Suicidal ideation] This note was generated with [employer] dictation software. It may contain incorrect words, spelling, and punctuation that were not noted in review of the chart prior to signing <Sherrill Barbosa - Last Filed: 07/07/18 00:13> - ER Visit Summary Date of Service: 07/07/18 Chief Complaint: [] History of Present Illness: The patient is a 42 F [] Physical Examination: [] Test Results: [] Emergency Department Course and Treatment: Patient signed out to me. Has been stable. Medically cleared. Evaluated by [facility] under service of Wilfredo Chaparro Treatment Plan: [] Disposition: transfer [facility] Impression: Depression with suicidal ideation This note was generated with [employer] dictation software. It may contain incorrect words, spelling, and punctuation that were not noted in review of the chart prior to signing <Shelton Baca - Last Filed: 07/07/18 03:02> ED Disposition <Sherrill Barbosa - Last Filed: 07/07/18 00:13> <Shelton Baca - Last Filed: 07/07/18 03:02> - Plan for ED Patient: Disposition: Psychiatric Hospital or Unit Chief Complaint: Suicidal Diagnosis: Depression with suicidal ideation Referrals: Kimberly Gross NP-C [Primary Care Provider] -
[2018-07-06 19:34] LABS: Anion Gap 9 (5-15); BUN 9 mg/dL (7-18); BUN/Creat Ratio 10.9 RATIO (10-20); Calcium,Total 9.3 mg/dL (8.5-10.1); Chloride 108 mmol/L (98-107); Creatinine, Serum 0.83 mg/dL (0.55-1.02); EST Glomerular Filtration Rate 81 mL/min (>60); Est Glom Filt Rate - Afr Amer 98 mL/min (>60); Glucose 95 mg/dL (74-106); Potassium 4.1 mmol/L (3.5-5.1); Sodium Level 140 mmol/L (136-145)
[2018-07-06 19:37] LABS: Amphetamine Urine VISTA NEGATIVE (<1000 ng/mL); Barbiturate Urine VISTA NEGATIVE (< 200 ng/mL); Benzodiazepine Urine VISTA NEGATIVE (< 200 ng/mL); Cocaine Urine VISTA NEGATIVE (< 300 ng/mL); Ecstacy Urine VISTA NEGATIVE (< 500 ng/mL); Methadone Urine VISTA NEGATIVE (< 300 ng/mL); PCP Urine VISTA NEGATIVE (< 25 ng/mL); THC Urine VISTA POSITIVE (< 50 ng/mL); Vista UDS pH Range 7
[2018-07-06 19:37] LABS: Pregnancy, Serum, hCG Quali. NEGATIVE Negative (0-9 Nonpreg)
[2018-07-06] MEDS: Metoclopramide 10 MG/2 ML Vial IV (19:55)
[2018-07-06] MEDS: DiphenhydrAMINE 50 MG/ML Syringe 25 MG IV (19:55)
[2018-07-06] MEDS: 0.9% Normal Saline 1,000 ML 1000 ML IV (19:55)
--- NOTE | 2018-07-06 20:29 | NURSING ---
CRISIS CALLED AT [phone]
--- NOTE | 2018-07-06 21:39 | ED.RN ---
IV D/C. CATHETER INTACT. NO BLEEDING. KEYS GIVEN TO SLIME PER PATIENT INSTRUCTION.
--- NOTE | 2018-07-06 22:00 | CM.ED ---
SOCIAL WORK NOTE BETINA FROM CRISIS HERE AND ASSESSED PT. THIS WORKER DISCUSSED ASSESSMENT FROM PT'S VISIT YESTERDAY, 07/05/18 AND D/C WITH SAFETY PLAN. BETINA STATES DISCUSSED WITH DR. GIBBS AND IS CURRENLY WORKING ON PLACEMENT. REFERRAL HAS BEEN FAXED TO [facility]. AWAITING ACCEPTANCE.
[2018-07-06 22:43] VITALS: BP 128/80; PULSE 82; RESP 14; TEMP 36.9; O2SAT 98
[2018-07-06] MEDS: Pregabalin 75 MG Capsule PO (22:44)
[2018-07-06] MEDS: tiZANidine HCl 2 MG Tablet 8 MG PO (22:44)
[2018-07-06] MEDS: Doxazosin 1 MG Tablet 1.5 MG PO (22:45)
[2018-07-07] VITALS (7 sets, daily range): BP systolic 101–129; BP diastolic 57–78; PULSE 79–97; RESP 16–18; O2SAT 94–100
--- NOTE | 2018-07-07 00:15 | NURSING ---
ACCEPTED TO [facility] TO ADULT BEHAVIORAL UNIT [phone] REPORT
--- NOTE | 2018-07-07 05:19 | NURSING ---
[facility] DOES NOT DO NIGHT PYSCH TRANSPORT CALLED [facility] AT [phone] AND WAS ASKED OT CALL BACK AFTER 7AM TO SET UP TRANSPORT
[2018-07-07] MEDS: lamoTRIgine 100 MG Tablet PO (08:54)
[2018-07-07] MEDS: tiZANidine HCl 2 MG Tablet 4 MG PO (08:54)
[2018-07-07] MEDS: Citalopram 20 MG Tablet 40 MG PO (09:01)
[2018-07-07] MEDS: Lisinopril 10 MG Tablet PO (09:02)
== END 2018-07-07 11:43 ==
PROVIDERS: Emergency Provider Emergency Medicine; Family Provider Nurse Practitioner Primary Care; PCP Nurse Practitioner Primary Care
DX: R45.851 Suicidal ideations (principal); F32.9 Major depressive disorder, single episode, unspecified; G43.909 Migraine, unspecified, not intractable, without status migrainosus; F43.10 Post-traumatic stress disorder, unspecified; Z72.0 Tobacco use; Z79.899 Other long term (current) drug therapy
CPT/HCPCS: 80048; 80307; 80320; 84703; 85025; 96361; 96374; 96375; 99285; J7030; A4216; G0480

== ENCOUNTER 2018-07-18 14:17 | Emergency (ER) | payer MEDICAID, SELFPAY ==
[2018-07-18 14:17] VITALS: BP 127/76; PULSE 105; RESP 18; TEMP 36.6; O2SAT 96; BMI 43.6
[2018-07-18] MEDS: Acetaminophen 500 MG Tablet 1000 MG PO (14:40)
--- NOTE | 2018-07-18 14:41 | RAD_ITS ---
STUDY: X-RAY CHEST REASON FOR EXAM: Female, 43 years old. Fever and cough TECHNIQUE: Frontal and lateral views of the chest. COMPARISON: 06/18/2018. FINDINGS: The lungs are clear and expanded. There is no demonstrated pleural abnormality. Normal size heart. Normal mediastinum and danny. Normal visualized pulmonary arteries. Normal visualized aortic arch and descending thoracic aorta. Stable small to moderate hiatal hernia. Normal visualized thoracic spine. Normal visualized ribs, clavicles, and shoulders. There is no demonstrated abnormality of the visualized soft tissue structures of the upper abdomen. RAD/Chest PA and Lateral IMPRESSION: No acute chest disease. Electronically Signed: Michael Combs MD at 15:46 EST , Service support ,
--- NOTE | 2018-07-18 14:56 | ED.VISSUMM ---
- ER Visit Summary Date of Service: 07/18/18 Chief Complaint: Sore throat and cough History of Present Illness: The patient is a 43 F who sees Kimberly Gross. She reports that she has a sore throat cough began 4 days ago. Cough is productive of yellowish green sputum without blood. She denies any shortness of breath. She has subjective fever and chills. She had nasal congestion. She complains of a sore throat denies in severity. States that she has right ear pain is 4 out of 10 severity. Physical Examination: Vitals: Stable. Afebrile. General: Well-nourished and well-developed. Head: Normocephalic atraumatic. HEENT: Serous effusions bilaterally. No otitis media. Pharyngeal erythema. No tonsillar exudate or enlargement. No peritonsillar abscess. Neck: Supple, no lymphadenopathy. No JVD. Nontender. Cardiovascular: Regular rate and rhythm. No murmurs. Respiratory: No respiratory distress. Clear to auscultation bilaterally. Abdominal: Soft, nontender, nondistended, normal bowel sounds. No guarding, rebound, or peritoneal signs. Back: Nontender. Extremities: Nontender, no edema. Skin: Normal color, no rash. Neurologic: Alert and oriented ?3. Cranial nerves II through XII are intact. Normal strength and sensation. Psych: Normal affect. Test Results: Chest x-ray is normal. Emergency Department Course and Treatment: Patient was treated with Tylenol. She is resting comfortably. Treatment Plan: Patient be discharged with symptomatic care. Instructed to follow-up with her primary care physician in 1 week if not improving. Return to the emergency department for any worsening symptoms. Disposition: To home in improved and stable condition. Impression: 1. URI. This note was generated with [employer] dictation software. It may contain incorrect words, spelling, and punctuation that were not noted in review of the chart prior to signing ED Disposition - Plan for ED Patient: Chief Complaint: Cold Sx Instructions: ED Upper Resp Infec No Abx Tx Referrals: Kimberly Gross, ASSISTANT [employer] PUBLIC DEFENDER-C [Primary Care Provider] - 1 Week if not improving
== END 2018-07-18 16:07 | disposition home or self-care (01) ==
LOC: ED 15:26
PROVIDERS: Emergency Provider Emergency Medicine; Family Provider Nurse Practitioner Primary Care; PCP Nurse Practitioner Primary Care
DX: J06.9 Acute upper respiratory infection, unspecified (principal); I10 Essential (primary) hypertension; F41.9 Anxiety disorder, unspecified; F32.9 Major depressive disorder, single episode, unspecified; F43.10 Post-traumatic stress disorder, unspecified; M79.7 Fibromyalgia; M19.90 Unspecified osteoarthritis, unspecified site; Z72.0 Tobacco use; Z79.899 Other long term (current) drug therapy
CPT/HCPCS: 71046; 99282

== ENCOUNTER 2018-08-09 19:40 | Emergency (ER) | payer MEDICAID, SELFPAY ==
[2018-08-09 19:42] VITALS: BP 128/88; PULSE 96; RESP 20; TEMP 36.9; O2SAT 96; BMI 45.2
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
--- NOTE | 2018-08-09 20:11 | CM.ED ---
Social Work Note Discussed with physician who reports that pt is not suicidal and will remove precautions. Does not want crisis contacted or this teletypewriter operator to evaluate. Staff made aware this teletypewriter operator is available if needs arise. Kimberly Hui MSW, GIA
[2018-08-09] MEDS: proMETHazine 25 MG Tablet PO (20:24)
[2018-08-09] MEDS: Mag Hydrox/Al Hydrox/Simeth 30 ML UDC PO (20:24)
[2018-08-09 20:36] LABS: Mucous, Urine 0 SEEN /hpf (<or=2+); White Blood Cells 0 SEEN /hpf (0-5)
[2018-08-09 20:42] LABS: Absolute Lymphocyte Count 3.23 X10^3/ul (0.83-4.51); Absolute Neutrophil Count 6.7 X10^3/uL (2.0-7.7); Basophil# 0.03 X10^3/uL; Basophil% 0.3 % (0-1); Eosinophil# 0.19 X10^3/uL; Eosinophils% 1.7 % (0-5); Hematocrit 43.8 % (37-47); Hemoglobin 14.1 g/dl (12.0-15.0); Lymphocyte # 3.23 X10^3/ul (4.0); Lymphocyte % 29.4 % (19-41); Mean Corp Hgb Conc 32.2 g/gl (32-36); Mean Corpuscular Hgb 29.8 pg (27.0-32.0); Mean Corpuscular Volume 92.6 fL (81-99); Mean Platelet Vol. 9.5 fl (6.2-12.0); Monocyte# 0.83 X10^3/uL; Monocyte% 7.6 % (0-10); Neutrophil # 6.67 X10^3/uL (2.7-7.7); Neutrophil % 60.7 % (47-70); Platelet Count 250 K/mm3 (150-450); RBC Distribution Width CV 13.2 % (11.6-14.6); RBC Distribution Width SD 44.3 fl (35.1-43.9); Red Blood Count 4.73 M/mm3 (4.2-5.4)
[2018-08-09 20:43] LABS: POSITIVE COUNT NO; POSITIVE DIFFERENTIAL NO; POSITIVE MORPHOLOGY NO
[2018-08-09 20:46] LABS: Color, Urine Yellow (Yellow); Glucose, Dipstick Normal (Normal); Ketone-Dipstick Negative (Negative); Leukocyte Esterase-Dipstick Negative /ul (Negative); Nitrite-Dipstick Negative (Negative); Occult Blood-Urine 25 /ul (Negative); Protein-Dipstick 15 mg/dl (Negative); Specific Gravity, Urine 1.015 (1.002-1.030); Urine Bilirubin Dipstick Negative (Negative); Urine Clarity Sl. Cloudy (Clear); Urine Urobilinogen Normal (Normal)
[2018-08-09 20:53] LABS: BUN 6 mg/dL (7-18); Creatinine, Serum 0.77 mg/dL (0.55-1.02); Estimated Creatinine Clearance 83.03 ml/min; Glucose 89 mg/dL (74-106)
[2018-08-09 20:53] LABS: Bacteria 1+ /hpf (None Seen); Red Blood Cells-Urine 0-5 SEEN /hpf (0-5); Squamous Epithelial Cells - UA 10-25 SEEN /hpf (5-10)
[2018-08-09 20:54] LABS: ALB/GLOB Ratio 0.8 RATIO (0.9-2.4); AST(SGOT) 15 U/L (15-37); Alanine Aminotransfer ALT/SGPT 19 U/L (13-56); Albumin, Serum 3.3 g/dL (3.2-5.0); Alkaline Phosphatase 116 U/L (45-117); Anion Gap 5 (5-15); BUN/Creat Ratio 7.8 RATIO (10-20); Calcium,Total 8.5 mg/dL (8.5-10.1); Chloride 109 mmol/L (98-107); EST Glomerular Filtration Rate 88 mL/min (>60); Est Glom Filt Rate - Afr Amer 107 mL/min (>60); Lipase 119 U/L (73-393); Potassium 3.9 mmol/L (3.5-5.1); Protein, Total 7.3 g/dL (6.4-8.2); Sodium Level 138 mmol/L (136-145)
[2018-08-09 22:29] VITALS: BP 134/63; PULSE 89; RESP 18; O2SAT 97
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
--- NOTE | 2018-08-09 22:36 | ED.RN ---
SOCIAL WORK WENT IN AND TOLD PATIENT THAT WE WOULD PAY FOR A TAXI FOR HER TO GO HOME, BUT WE WILL ONLY DO THIS ONCE PER YEAR. PATIENT STATES I DON'T HAVE ANY MONEY FOR A CAB, AND I DIDN'T WANT TO COME ANYWAY.
== END 2018-08-09 22:53 | disposition home or self-care (01) ==
PROVIDERS: Emergency Provider Emergency Medicine; Family Provider Nurse Practitioner Primary Care; PCP Nurse Practitioner Primary Care
DX: F43.0 Acute stress reaction (principal); F41.9 Anxiety disorder, unspecified; R10.11 Right upper quadrant pain; F17.200 Nicotine dependence, unspecified, uncomplicated; Z79.899 Other long term (current) drug therapy
CPT/HCPCS: 80053; 81001; 83690; 85025; 99285

== ENCOUNTER 2018-08-10 09:10 | Emergency (ER) | payer MEDICAID, SELFPAY ==
[2018-08-09 19:42] VITALS: BMI 45.2
[2018-08-10 09:11] VITALS: BP 142/93; PULSE 95; RESP 18; TEMP 36.7; O2SAT 99; BMI 43.7
--- NOTE | 2018-08-10 09:37 | ED.RN ---
belongs list: tank top pj bottoms socks white k-brazilian cell phone sweat shirt cigarettes in a metal case thing rip and groove machine operator.
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
[2018-08-10 09:47] LABS: Absolute Neutrophil Count 5.6 X10^3/uL (2.0-7.7); Basophil# 0.03 X10^3/uL; Basophil% 0.3 % (0-1); Eosinophil# 0.17 X10^3/uL; Eosinophils% 1.8 % (0-5); Hematocrit 40.1 % (37-47); Hemoglobin 13.1 g/dl (12.0-15.0); Lymphocyte % 29.4 % (19-41); Mean Corp Hgb Conc 32.7 g/gl (32-36); Mean Corpuscular Hgb 30.3 pg (27.0-32.0); Mean Corpuscular Volume 92.8 fL (81-99); Mean Platelet Vol. 9.2 fl (6.2-12.0); Monocyte# 0.68 X10^3/uL; Monocyte% 7.4 % (0-10); Neutrophil # 5.58 X10^3/uL (2.7-7.7); Neutrophil % 60.8 % (47-70); POSITIVE COUNT NO; POSITIVE DIFFERENTIAL NO; POSITIVE MORPHOLOGY NO; Platelet Count 229 K/mm3 (150-450); RBC Distribution Width CV 13.3 % (11.6-14.6); Red Blood Count 4.32 M/mm3 (4.2-5.4); White Blood Count 9.2 K/mm3 (4.4-11.0)
[2018-08-10 10:04] LABS: BUN 5 mg/dL (7-18); Creatinine, Serum 0.84 mg/dL (0.55-1.02); Glucose 141 mg/dL (74-106)
[2018-08-10 10:05] LABS: ALB/GLOB Ratio 0.9 RATIO (0.9-2.4); AST(SGOT) 13 U/L (15-37); Alanine Aminotransfer ALT/SGPT 20 U/L (13-56); Albumin, Serum 3.1 g/dL (3.2-5.0); Alkaline Phosphatase 103 U/L (45-117); Anion Gap 11 (5-15); Calcium,Total 8.3 mg/dL (8.5-10.1); Chloride 107 mmol/L (98-107); EST Glomerular Filtration Rate 80 mL/min (>60); Est Glom Filt Rate - Afr Amer 96 mL/min (>60); Estimated Creatinine Clearance 79.31 ml/min; Globulin 3.5 g/dL (2.2-4.2); Potassium 3.3 mmol/L (3.5-5.1); Pregnancy, Serum, hCG Quali. NEGATIVE Negative (0-9 Nonpreg); Protein, Total 6.6 g/dL (6.4-8.2); Sodium Level 141 mmol/L (136-145)
[2018-08-10 10:38] VITALS: RESP 12
--- NOTE | 2018-08-10 11:15 | CM.ED ---
SOCIAL WORK NOTE DISCUSSED PT'S CASE WITH DR. BRUSH. PT WILL REQUIRE CRISIS EVALUATION DUE TO SUICIDAL IDEATION. BHUPINDER RIBERA, AWS CONSULTANT, PHOTOGRAPHIC EQUIPMENT MECHANIC.
[2018-08-10 11:18] LABS: Amphetamine Urine VISTA POSITIVE (<1000 ng/mL); Barbiturate Urine VISTA NEGATIVE (< 200 ng/mL); Benzodiazepine Urine VISTA NEGATIVE (< 200 ng/mL); Cocaine Urine VISTA NEGATIVE (< 300 ng/mL); Ecstacy Urine VISTA NEGATIVE (< 500 ng/mL); Methadone Urine VISTA NEGATIVE (< 300 ng/mL); PCP Urine VISTA NEGATIVE (< 25 ng/mL); THC Urine VISTA POSITIVE (< 50 ng/mL); Vista UDS pH Range 6
--- NOTE | 2018-08-10 12:25 | ED.RN ---
ANGELA WITH CRISIS IS HERE
[2018-08-10 13:00] VITALS: BP 107/55; PULSE 66; RESP 14; O2SAT 98
[2018-08-10 17:48] VITALS: BP 107/55; PULSE 74
--- NOTE | 2018-08-10 18:57 | ED.RN ---
PER RN REQUEST, CALLED TO CHECK THE STATUS OF TRANSPORT ARRIVAL, PER [facility], THEY SHOULD ARRIVE IN A FEW MINUTES
== END 2018-08-10 19:37 | disposition home or self-care (01) ==
PROVIDERS: Emergency Provider Emergency Medicine; Family Provider Nurse Practitioner Primary Care; PCP Nurse Practitioner Primary Care
DX: R45.851 Suicidal ideations (principal); E87.6 Hypokalemia; F32.9 Major depressive disorder, single episode, unspecified; F41.9 Anxiety disorder, unspecified; Z72.0 Tobacco use; Z79.899 Other long term (current) drug therapy
CPT/HCPCS: 80053; 80307; 80320; 84703; 85025; 93005; 99285; G0480

== ENCOUNTER 2018-12-10 13:14 | Emergency (ER) | payer MEDICAID, SELFPAY ==
[2018-12-10 13:15] VITALS: BP 158/75; PULSE 106; RESP 16; TEMP 36.6; O2SAT 98; BMI 44.2
--- NOTE | 2018-12-10 14:15 | ED.VISSUMM ---
- ER Visit Summary Date of Service: 12/10/18 Chief Complaint: Headache and cough History of Present Illness: The patient is a 43 F who notes 3 days of sore throat nasal congestion and frontal headache and a cough with some sputum production. She states she has a history of migraines but this feels different is that it is more in her face and frontal sinuses. No fevers. No home treatment other than Excedrin Physical Examination: Afebrile vital signs stable Gen: Well-nourished well-developed Head: Normocephalic atraumatic Eyes: Perrl EOMI ENT: TMs clear turbinate edema. Frontal and maxillary sinus tenderness moist mucous membranes. Evidence of postnasal drip Neck: Supple no lymphadenopathy no JVD nontender CVS: Regular rate rhythm no murmurs normal S1-S2 Respiratory: No distress clear to auscultation bilaterally chest nontender Abdomen: Soft nontender nondistended normal bowel sounds no masses Back: Nontender Extremity: Nontender no edema Skin: Normal color no rash Neuro: alert orientated ?3 CN II-XII intact normal strength sensation Psych: Normal affect normal mood Emergency Department Course and Treatment: I think is most likely sinusitis. She has headache tenderness over sinuses postnasal drip turbinate edema purulent nasal drainage. I will place her on Augmentin and Flonase have her follow-up Impression: 1. Acute sinusitis This note was generated with [employer] dictation software. It may contain incorrect words, spelling, and punctuation that were not noted in review of the chart prior to signing ED Disposition - Plan for ED Patient: Disposition: Home or Assisted Living Instructions: Sinus Headache Prescriptions: Amox/Clavulanate Tablet [Augmentin Tablet] 875 mg PO Q12H #20 tab Prescription Printed Fluticasone 0.05% [Flonase Nasal [place]] 2 spray NASAL DAILY 10 Days #1 nasal.sry Prescription Printed Referrals: Kimberly Gross NP-C [Primary Care Provider] - 1 Week if not improving
[2018-12-10 14:26] VITALS: PULSE 84; RESP 22; O2SAT 97
--- NOTE | 2018-12-10 14:26 | ED.RN ---
THIS NURSE REVIEWED D/C INSTRUCTIONS WITH PT. PT VERBALIZED UNDERSTANDING OF INSTRUCTIONS. PT DENIES FURTHER NEEDS OR QUESTIONS AT THIS TIME. PT AMBULATES FROM ROOM ON OWN WITHOUT ASSISTANCE FROM STAFF
== END 2018-12-10 14:28 | disposition home or self-care (01) ==
LOC: ED 14:16
PROVIDERS: Emergency Provider Emergency Medicine; Family Provider Nurse Practitioner Primary Care; PCP Nurse Practitioner Primary Care
DX: J01.10 Acute frontal sinusitis, unspecified (principal); J01.00 Acute maxillary sinusitis, unspecified; F31.9 Bipolar disorder, unspecified; Z72.0 Tobacco use; Z79.899 Other long term (current) drug therapy
CPT/HCPCS: 99283

== ENCOUNTER 2019-01-02 07:09 | Emergency (ER) | payer MEDICAID, SELFPAY ==
[2019-01-02 07:10] VITALS: BP 164/97; PULSE 118; RESP 20; TEMP 36.6; O2SAT 97; BMI 45.1
--- NOTE | 2019-01-02 07:20 | EKG12_ITS ---
Test Reason : ANXIETY Blood Pressure : / mmHG Vent. Rate : 091 BPM Atrial Rate : 091 BPM P-R Int : 142 ms QRS Dur : 078 ms QT Int : 362 ms P-R-T Axes : 032 030 018 degrees QTc Int : 445 ms Normal sinus rhythm Normal ECG Confirmed by JESSA SEGURA, SHEILA ([id number]), metropolitan editor COURTNEY GUTIÉRREZ ([id number]) on 01/04/2019 1:50:10 PM Referred By: BRIGHT Confirmed By:SHEILA GERMAIN MD
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
[2019-01-02] MEDS: LORazepam 1 MG Tablet PO (07:39)
[2019-01-02 07:44] VITALS: BP 129/86; PULSE 72; RESP 15; O2SAT 96
== END 2019-01-02 07:45 | disposition home or self-care (01) ==
PROVIDERS: Emergency Provider Emergency Medicine; Family Provider Nurse Practitioner Primary Care; PCP Nurse Practitioner Primary Care
DX: F41.9 Anxiety disorder, unspecified (principal); F32.9 Major depressive disorder, single episode, unspecified; Z79.899 Other long term (current) drug therapy; F17.200 Nicotine dependence, unspecified, uncomplicated
CPT/HCPCS: 93005; 99284

== ENCOUNTER 2019-01-12 14:52 | Emergency (ER) | payer MEDICAID, SELFPAY ==
[2019-01-12 14:53] VITALS: BP 140/89; PULSE 102; RESP 18; TEMP 36.6; O2SAT 97; BMI 44.9
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
[2019-01-12] MEDS: LORazepam 1 MG Tablet PO (15:39)
[2019-01-12] MEDS: Ketorolac 60 MG/2 ML Vial IM (15:39)
[2019-01-12] MEDS: Ondansetron ODT 4 MG Tablet PO (15:39)
== END 2019-01-12 16:02 | disposition home or self-care (01) ==
PROVIDERS: Emergency Provider Emergency Medicine; Family Provider Nurse Practitioner Primary Care; PCP Nurse Practitioner Primary Care
DX: R10.13 Epigastric pain (principal); F41.9 Anxiety disorder, unspecified; F32.9 Major depressive disorder, single episode, unspecified; Z72.0 Tobacco use; Z79.899 Other long term (current) drug therapy; Y04.2XXA Assault by strike against or bumped into by another person, initial encounter; Y93.89 Activity, other specified; Y92.89 Other specified places as the place of occurrence of the external cause; Y99.8 Other external cause status
CPT/HCPCS: 96372; 99285

== ENCOUNTER 2019-04-28 19:45 | Emergency (ER) | payer MEDICAID, SELFPAY ==
[2019-04-28 19:46] VITALS: BP 113/88; PULSE 98; RESP 18; TEMP 36.6; O2SAT 96; BMI 43.2
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
[2019-04-28] MEDS: Ondansetron ODT 4 MG Tablet 8 MG PO (22:56)
[2019-04-28] MEDS: Ketorolac 60 MG/2 ML Vial IM (22:57)
== END 2019-04-28 23:42 | disposition home or self-care (01) ==
PROVIDERS: Emergency Provider Emergency Medicine; Family Provider Nurse Practitioner Primary Care; PCP Nurse Practitioner Primary Care
DX: S06.9X1A Unspecified intracranial injury with loss of consciousness of 30 minutes or less, initial encounter (principal); R40.2410 Glasgow coma scale score 13-15, unspecified time; S40.021A Contusion of right upper arm, initial encounter; S16.1XXA Strain of muscle, fascia and tendon at neck level, initial encounter; F43.10 Post-traumatic stress disorder, unspecified; F32.9 Major depressive disorder, single episode, unspecified; F41.9 Anxiety disorder, unspecified; M79.7 Fibromyalgia; F17.200 Nicotine dependence, unspecified, uncomplicated; Z79.899 Other long term (current) drug therapy; Y04.2XXA Assault by strike against or bumped into by another person, initial encounter; Y93.89 Activity, other specified; Y92.89 Other specified places as the place of occurrence of the external cause; Y99.8 Other external cause status
CPT/HCPCS: 70450; 72072; 72125; 96372; 99285

== ENCOUNTER 2019-10-19 09:47 | Emergency (ER) | payer MEDICAID, SELFPAY ==
[2019-10-19 09:47] VITALS: BP 127/68; PULSE 103; RESP 18; TEMP 36.8; O2SAT 98; BMI 38.2
--- NOTE | 2019-10-19 10:11 | ED.VIS.GEN ---
History of Present Illness Chief Complaint: Fever Informant: Patient Narrative: Patient states for the past 3 days she has had a stabbing pain in the right flank that has now radiated around towards her front and into the pelvis. She also notes some discomfort in her epigastrium. She notes shortness of breath and intermittent fever. The patient states that she has been using Tylenol. She denies any cough or other URI symptoms. T-max 99.9. She denies any dysuria or frequency. No history of kidney stones. He denies any rash. She notes nausea without vomiting. No diarrhea. She states she has an adrenal tumor which typically is checked every year but she has not had checked for 2 years. Past Medical History - Allergies and Home Meds Allergies/Adverse Reactions: Allergies doxycycline [From Vibramycin] Allergy (Verified 10/19/19 09:50) Rash tramadol HCl [From Ultram] Allergy (Verified 10/19/19 09:50) Anaphylaxis vilazodone [From Viibryd] Allergy (Verified 10/19/19 09:50) Rash cephalexin monohydrate [From Keflex] Adverse Reaction (Verified 10/19/19 09:50) Swelling dicyclomine HCl [From Bentyl] Adverse Reaction (Verified 10/19/19 09:50) Vomiting ibuprofen Adverse Reaction (Verified 10/19/19 09:50) Vomiting lithium Adverse Reaction (Verified 10/19/19 09:50) Other morphine Adverse Reaction (Verified 10/19/19 09:50) Vomiting NSAIDS (Non-Steroidal Anti-Inflamma Adverse Reaction (Verified 10/19/19 09:50) Vomiting STEROIDS Adverse Reaction (Uncoded 10/19/19 09:50) Other Primary Care Physician: Kimberly Gross NP-C [Primary Care Provider] - Surgical History: cholecystectomy, hysterectomy Smoking Status: Current every day smoker Review of Systems General: Reports: Fever, Malaise. Denies: Chills, Sweats Eyes: Denies: Visual changes - bilaterally, Diplopia ENT: Denies: Rhinorrhea, Sore throat Cardiovascular: Denies: Chest pain, Palpitations Respiratory: Reports: Dyspnea. Denies: Cough, Dyspnea on exertion Gastrointestinal: Reports: Abdominal pain, Nausea. Denies: Vomiting, Diarrhea, Melena, Hematochezia Genitourinary: Reports: - - Right flank pain. Denies: Dysuria, Hematuria, Frequency Musculoskeletal: Denies: Back pain, Extremity Pain Skin: Denies: Rash, Wounds Neurological: Denies: Headache, Weakness, Numbness Physical Exam Vital Signs/Narrative: Vital Signs Temp Pulse Resp BP Pulse Ox 10/19/19 09:47 98.2 F 103 H 18 127/68 H 98 Inital Vital Signs reviewed: Yes General: Well nourished, Well developed, Obese, No Acute Distress Head: Normocephalic, Atraumatic Eyes: Perrl, EOMI ENT: Moist mucous membranes, No rhinorrhea Neck: Supple, Nontender Cardiovascular: Regular rate, Regular rhythm, No murmurs Respiratory: No distress, CTA bilaterally, Chest nontender Abdomen: Soft, Nontender, Nondistended, Normal bowel sounds Back: CVA tenderness - right Extremities: Nontender, No edema Skin: Normal color, No rash Neurological: Alert, Oriented x3, Cranial nerves II-XII grossly intact, Normal Strength, Normal Sensation Psychological: Normal affect, Normal Mood Diagnostic/Tx/Re-eval - Medical Decision Making Chest x-ray was negative. White count slightly elevated 11. CMP normal. D-dimer is normal. Urinalysis was leukocyte Estrace +2+ bacteria 5-10 squamous cells. Nitrates were negative. CT of the abdomen pelvis was performed which demonstrated a moderate size hiatal hernia. No evidence of ureterolithiasis or renal abscess noted. I spoke with the patient will place her on antibiotic for the urine even though it is questionable. She is asked about the hiatal hernia and has seen Dr. Luke in the past. She would like to see him and get his opinion on whether or not this should be fixed. At this point patient be discharged home. ED Disposition - Plan for ED Patient: Disposition: Psychiatric Hospital or Unit Diagnosis: Bacteria in urine, Right flank pain, Hiatal hernia Instructions: ED Hiatal Hernia, ED Pyelonephritis Female Adult Prescriptions: Smz/Tmp Ds [Bactrim Ds] 1 tab PO BID #14 tab Transmission Status: Pending to [facility] Referrals: Kimberly Gross NP-C [Primary Care Provider] - 3-5 Days if not improving
[2019-10-19 10:29] LABS: Hematocrit 43.8 % (37-47); Mean Corpuscular Volume 90.7 fL (81-99); Mean Platelet Vol. 9.6 fl (6.2-12.0); Platelet Count 274 K/mm3 (150-450); RBC Distribution Width CV 13.2 % (11.6-14.6); RBC Distribution Width SD 43.8 fl (35.1-43.9); Red Blood Count 4.83 M/mm3 (4.2-5.4); White Blood Count 11.5 K/mm3 (4.4-11.0)
[2019-10-19 10:45] LABS: Mucous, Urine 0 SEEN /hpf (<or=2+); Red Blood Cells-Urine 0 SEEN /hpf (0-5); White Blood Cells 0 SEEN /hpf (0-5)
[2019-10-19 10:45] LABS: ALB/GLOB Ratio 0.8 RATIO (0.9-2.4); AST(SGOT) 10 U/L (15-37); Alanine Aminotransfer ALT/SGPT 23 U/L (13-56); Albumin, Serum 3.1 g/dL (3.2-5.0); Alkaline Phosphatase 113 U/L (45-117); Anion Gap 4 (5-15); BUN 9 mg/dL (7-18); BUN/Creat Ratio 10.2 RATIO (10-20); Calcium,Total 8.9 mg/dL (8.5-10.1); Chloride 108 mmol/L (98-107); Creatinine, Serum 0.88 mg/dL (0.55-1.02); EST Glomerular Filtration Rate 75 mL/min (>60); Est Glom Filt Rate - Afr Amer 90 mL/min (>60); Estimated Creatinine Clearance 74.94 ml/min; Globulin 3.7 g/dL (2.2-4.2); Glucose 117 mg/dL (74-106); Lipase 190 U/L (73-393); Potassium 3.7 mmol/L (3.5-5.1); Protein, Total 6.8 g/dL (6.4-8.2); Sodium Level 139 mmol/L (136-145)
[2019-10-19 10:51] LABS: Color, Urine Yellow (Yellow); Glucose, Dipstick Normal (Normal); Ketone-Dipstick Negative (Negative); Leukocyte Esterase-Dipstick Negative /ul (Negative); Nitrite-Dipstick Negative (Negative); Occult Blood-Urine 25 /ul (Negative); Protein-Dipstick Negative (Negative); Urine Bilirubin Dipstick Negative (Negative); Urine Clarity Sl. Cloudy (Clear); Urine Urobilinogen Normal (Normal)
[2019-10-19 10:56] LABS: Internal QC Validated? YES +Cl - CLEAR BKGD; Pregnancy, Urine Negative Negative
--- NOTE | 2019-10-19 11:00 | RAD_ITS ---
STUDY: X-RAY CHEST REASON FOR EXAM: Female, 44 years old. Short of breath, cough TECHNIQUE: Single AP portable view of the chest. COMPARISON: Comparison is made with prior examination dated July 18, 2018. FINDINGS: The lungs are clear and expanded. Scattered calcified granulomas. There is no demonstrated pleural abnormality. Normal size heart. Normal mediastinum and danny. Normal visualized pulmonary arteries. Normal visualized aortic arch and descending thoracic aorta. Normal visualized thoracic spine. Normal visualized ribs, clavicles, and shoulders. Hiatal hernia. RAD/Chest 1 View (Portable) IMPRESSION: No acute abnormality is seen. Electronically Signed: Pritesh Pompa, at 11:44 EDT , Service support ,
[2019-10-19 11:19] LABS: Bacteria 2+ /hpf (None Seen); Squamous Epithelial Cells - UA 5-10 SEEN /hpf (5-10)
[2019-10-19 12:30] LABS: D-Dimer Quantitative (DVT/PE) 0.44 FEU/ug/m (0.27-0.49)
--- NOTE | 2019-10-19 12:33 | CT_ITS ---
STUDY: CT ABDOMEN AND PELVIS WITH CONTRAST REASON FOR EXAM: Female, 44 years old. RIGHT FLANK PAIN,FEVER,FATIGUE,SOB -- HX OF CERVICAL CA, CHOLECYSTECTOMY RADIATION DOSAGE (If Supplied By Facility): CTDIvol = ( 16.74 ) mGy, DLP = ( 1244.71 ) mGycm TECHNIQUE: Transaxial images were obtained from the dome of the diaphragm to the symphysis pubis without oral contrast. IV 100mL Isovue-370 was administered. Sagittal and coronal images were reconstructed. Individualized dose optimization techniques were used for this CT. COMPARISON: Comparison is made with prior examination dated October 04, 2017. FINDINGS: The visualized lung bases are unremarkable. The visualized portions of the heart are within normal limits. There is decreased attenuation of the liver consistent with steatosis. The patient is status post cholecystectomy. Normal spleen. Normal pancreas. Stable 2.1 cm x 2.2 cm hypodense nodule in the right adrenal gland suggestive of adrenal adenoma. Normal right kidney. Normal left kidney. There is a moderate to large hiatal hernia. Normal small intestine. Normal colon. There is non-visualization of the appendix. Normal abdominal aorta. Normal inferior vena cava. There is borderline retroperitoneal lymphadenopathy with enlarged nodes no greater than 10mm in the short axis diameter. Normal urinary bladder. There is absence of the uterus consistent with a prior hysterectomy. Normal abdominal wall. Normal osseous structures. CT/Abdomen/Pelvis W IV Cont ONLY IMPRESSION: Stable 2.1 cm right adrenal adenoma. Fatty infiltration of the liver. The patient is status post cholecystectomy and hysterectomy. Electronically Signed: Pritesh Pompa, at 13:13 EDT , Service support ,
[2019-10-19 14:08] VITALS: RESP 16
== END 2019-10-19 14:09 ==
PROVIDERS: Emergency Provider Emergency Medicine; PCP Nurse Practitioner Primary Care
DX: R82.71 Bacteriuria (principal); R10.9 Unspecified abdominal pain; K44.9 Diaphragmatic hernia without obstruction or gangrene; F17.200 Nicotine dependence, unspecified, uncomplicated; E66.9 Obesity, unspecified
CPT/HCPCS: 71045; 74177; 80053; 81001; 81025; 83690; 85027; 85379; 99284; Q9967; A4216

== ENCOUNTER 2020-05-04 19:17 | Emergency (ER) | payer MEDICAID, SELFPAY ==
[2019-12-05 13:55] VITALS: BMI 38.2
[2020-05-04 19:18] VITALS: BP 139/60; PULSE 109; RESP 16; TEMP 35.9; O2SAT 97; BMI 43.9
[2020-05-04 19:58] LABS: Mucous, Urine 0 SEEN /hpf (<or=2+)
[2020-05-04 19:59] LABS: Color, Urine Yellow (Yellow); Glucose, Dipstick Normal (Normal); Ketone-Dipstick 5 mg/dl (Negative); Leukocyte Esterase-Dipstick 500 /ul (Negative); Nitrite-Dipstick Negative (Negative); Occult Blood-Urine 250 /ul (Negative); Protein-Dipstick 100 mg/dl (Negative); Urine Bilirubin Dipstick Negative (Negative); Urine Clarity Cloudy (Clear); Urine Urobilinogen Normal (Normal)
[2020-05-04 20:05] VITALS: BP 139/60; PULSE 109; RESP 16; TEMP 35.9; O2SAT 97
--- NOTE | 2020-05-04 20:11 | ED.DCSUM_ITS ---
- ER Visit Summary Date of Service: 05/04/20 Chief Complaint: Possible UTI History of Present Illness: The patient is a 44 F who presents with possible urinary tract infection that has been constant for the past week. Patient states she has burning in her lower abdomen. Patient states it is worse with urination. Patient denies any fevers or chills. Patient denies any nausea or vomiting. Patient does admit to some mild low back pain. Patient denies any flank pain. Patient states this feels similar to prior urinary tract infections. Physical Examination: Vital signs are stable. Patient is afebrile. Patient is in no acute distress. Oral mucosa is pink and moist. Neck is supple. Trachea is midline. There is no JVD. Heart was regular rate and rhythm. Lungs are clear and equal bilaterally. Abdomen is soft. Bowel sounds are normal. There is some mild suprapubic tenderness. There is no rebound or guarding noted. There is no CVA tenderness. Cranial nerves II through XII are intact. There are no focal motor or sensory deficits. Test Results: Urinalysis showed leukocyte esterase of 500 with greater than 100 white blood cells. Emergency Department Course and Treatment: Patient was ordered a dose of Bactrim here. Patient left prior to receiving the dose of Bactrim. Patient was written a prescription for Bactrim. Patient left before receiving her prescription and discharge instructions. Disposition: Eloped Impression: 1. Urinary tract infection This note was generated with [employer] dictation software. It may contain incorrect words, spelling, and punctuation that were not noted in review of the chart prior to signing ED Disposition - Plan for ED Patient: Disposition: Home or Assisted Living Diagnosis: Urinary tract infection Instructions: ED CYSTITIS Female Adult Prescriptions: Smz/Tmp Ds [Bactrim Ds] 1 tab PO BID #6 tab Prescription Printed Referrals: Kimberly Gross NP, [employer]PL[employer] MAKER-C [Primary Care Provider] - 3-5 Days
[2020-05-04 21:13] LABS: White Blood Cells >100 SEEN /hpf (0-5)
[2020-05-04 21:15] LABS: Squamous Epithelial Cells - UA 0-5 SEEN /hpf (5-10)
[2020-05-04 21:18] LABS: Bacteria RARE /hpf (None Seen)
[2020-05-04 21:19] LABS: Red Blood Cells-Urine 10-25 SEEN /hpf (0-5)
--- NOTE | 2020-05-04 22:36 | ED.RN ---
THIS NURSE WENT TO ADMINISTER THE BACTRIM AND THE PT WAS NOT IN THE ROOM OR IN THE DEPARTMENT. DR. LONG MADE AWARE.
== END 2020-05-04 22:47 | disposition home or self-care (01) ==
PROVIDERS: Emergency Provider Emergency Medicine; PCP Nurse Practitioner Primary Care
DX: N39.0 Urinary tract infection, site not specified (principal); F17.200 Nicotine dependence, unspecified, uncomplicated; M79.7 Fibromyalgia
CPT/HCPCS: 81001; 87086; 87088; 87186; 99282

== ENCOUNTER 2021-08-22 07:42 | Emergency (ER) | payer MEDICAID, SELFPAY ==
[2021-08-22 07:43] VITALS: BP 123/80; PULSE 113; RESP 18; TEMP 36.4; O2SAT 98; BMI 41.3
--- NOTE | 2021-08-22 08:15 | RAD_ITS ---
STUDY: X-RAY - RIGHT FOOT CLINICAL: Female, 46 years old. Wound on plantar surface of foot. Stepped on something two nights ago. TECHNIQUE: 3 view(s) of the foot. COMPARISON: Right foot x-ray dated DECEMBER 12, 2015 FINDINGS: Normal talus, calcaneus, and tarsal bones. Normal visualized subtalar, talonavicular, calcaneocuboid, tarsal and tarsometatarsal articulations. Normal metatarsi. Small to moderate-sized plantar calcaneal spur. No visualized radiopaque foreign body in the soft tissues on this study. No visualized subcutaneous air. Normal metatarsophalangeal joint of the great toe. Normal tibial and fibular sesamoid bones. Normal interphalangeal joint of the great toe. Normal phalanges of the great toe. Normal second through fifth metatarsophalangeal joints. Normal interphalangeal joints and phalanges of the lesser toes. The soft tissue structures are unremarkable. There is no demonstrated fracture. RAD/Foot min 3 Views IMPRESSION: 1. Small to moderate-sized plantar calcaneal spur. 2. No visualized radiopaque foreign body in the soft tissues on this study. Electronically Signed: Amilcar Gonsalves MD at 8:32 EST Reading Location ID and State: [facility] / [place] , Service support ,
--- NOTE | 2021-08-22 08:21 | EDS_ITS ---
HPI History of Present Illness Chief Complaint: Wound Narrative Narrative: Patient presenting with puncture wound to the right foot. She states she was stepping over a baby gate and stepped on some kind of toy Joni which punctured her foot on the right in the midfoot. She states that she has been trying to keep it clean and keeping it dressed. She states that her friend told her to come in for an evaluation of her foot due to the pain. She has not noted any drainage. There is some swelling around the puncture wound. PFSH PFS Medical History Anxiety Chronic low back pain Depression Dysphagia Fibromyalgia Hiatal hernia PTSD (post-traumatic stress disorder) SOB (shortness of breath) Home Medications tizanidine 4 mg PO BREAKFAST 02/18/18 [History Last Taken 05/02/18] tizanidine 8 mg PO QHS 02/18/18 [History Last Taken 05/02/18] pregabalin 150 mg capsule 150 mg PO BID 12/05/19 [History Last Taken Unknown] sulfamethoxazole-trimethoprim 1 tab PO BID #6 tab 05/04/20 [Rx Last Taken Unknown] bacitracin zinc 1 applic TOPICAL BID #14 g 08/22/21 [Rx Last Taken Unknown] clindamycin HCl 450 mg PO TID 7 Days #63 cap 08/22/21 [Rx Last Taken Unknown] Allergy/AdvReac Type Severity Reaction Status Date / Time adhesive tape Allergy Intermediate Rash Verified 08/22/21 07:43 doxycycline [From Vibramycin] Allergy Rash Verified 08/22/21 07:43 tramadol HCl [From Ultram] Allergy Anaphylaxis Verified 08/22/21 07:43 vilazodone [From Viibryd] Allergy Rash Verified 08/22/21 07:43 cephalexin monohydrate AdvReac Swelling Verified 08/22/21 07:43 [From Keflex] dicyclomine HCl [From Bentyl] AdvReac Vomiting Verified 08/22/21 07:43 ibuprofen AdvReac Vomiting Verified 08/22/21 07:43 lithium AdvReac Other Verified 08/22/21 07:43 morphine AdvReac Vomiting Verified 08/22/21 07:43 NSAIDS (Non-Steroidal AdvReac Vomiting Verified 08/22/21 07:43 Anti-Inflamma STEROIDS AdvReac Other Uncoded 08/22/21 07:43 Family History Mother Arthritis Hypertension High cholesterol Father Arthritis Diabetes Heart disease High cholesterol Hypertension Surgical History history exploratory laparoscopy History of hysterectomy History of laparoscopic cholecystectomy History of tubal ligation history uterine ablation Social History Smoking Status: Current every day smoker tobacco type: cigarettes alcohol intake: current alcohol intake frequency: a few times a month details: once/week substance use type: marijuana ROS ROS ED Constitutional Constitutional ED: Denies chills or fever(s) Eyes Eyes: Denies blurry vision or change in vision ENT ENT ED: Denies rhinorrhea or sore throat Cardiovascular Cardiovascular: Denies chest pain or palpitations Respiratory/Chest Respiratory/Chest: Denies cough, dyspnea or sputum Gastrointestinal Gastrointestinal: Denies abdominal pain, nausea or vomiting Genitourinary Genitourinary ED: Denies dysuria or hematuria Integumentary Reports other Details: Puncture wound to the mid right foot plantar surface Neurologic Neurologic: Denies headache(s) or weakness Psychiatric Psychiatric: Denies anxiety or depression EXAM Physical Exam Const Vital Signs: 08/22/21 07:43 Temperature 97.5 F L Temperature Source Temporal Pulse Rate 113 H Respiratory Rate 18 Blood Pressure 123/80 H Blood Pressure Mean 94 Pulse Ox 98 Oxygen Delivery Method Room Air Positive well nourished and obese General Appearance ED: NAD Nutritional Appearance: obese HEENT normocephalic and atraumatic Resp normal respiratory effort and clear to auscultation bilaterally Cardio regular rate and regular rhythm Extremity Extremity Narrative: Small puncture wound to the right midfoot with some mild edema without drainage or erythema. There is no warmth. Right foot neurovascular intact with brisk cap refill to all 5 toes. Of note the bottom of her bilateral feet are black with dirt. Neuro oriented x3 and CN's II-XII intact bilaterally Sensorium / Orientation: alert Psych mental status grossly normal Skin Skin Narrative: As described above MDM MDM MDM Narrative Medical decision making narrative: Patient counseled that she would need to keep her feet clean her as they are black dirt. Her right foot was cleaned and a dressing was applied with bacitracin. She is given instructions to soak her right foot a few times a day and apply bacitracin to it and a dressing when she is done. Patient is allergic to doxycycline, Keflex will be started on clindamycin with first dose in the ED. She is given Tylenol for pain. I did obtain x-ray of the right foot just to make sure there is no foreign bodies and on my interpretation there are not. Radiologist does agree. Patient discharged home in stable condition. Impression: 1. Puncture wound right foot 2. Cellulitis Radiography Diagnostic Testing: Clinical Impression(s) from Imaging Studies Foot X-Ray 08/22/21 08:15 IMPRESSION: 1. Small to moderate-sized plantar calcaneal spur. 2. No visualized radiopaque foreign body in the soft tissues on this study. Electronically Signed: Amilcar Gonsalves MD at 8:32 EST Reading Location ID and State: [facility] / [place] , Service support , Discharge Plan Triage Chief Complaint: Wound ED Provider: Dar Baez Dx/Rx/DC Orders Instructions: ED Puncture Wound (Foot) Prescriptions: New clindamycin HCl 150 mg capsule 450 mg PO TID 7 Days Qty: 63 RF: 0 bacitracin zinc 500 unit/gram ointment 1 applic topical BID Qty: 14 RF: 0 No Action pregabalin [Lyrica] 150 mg capsule 150 mg PO BID RF: 0 tizanidine 4 MG tablet 4 mg PO BREAKFAST RF: 0 tizanidine 4 MG tablet 8 mg PO QHS RF: 0 sulfamethoxazole-trimethoprim 1 TABLET tablet 1 tab PO BID Qty: 6 RF: 0 Primary Care Provider: Care Physician,No Primary Referrals: Kimberly Gross LAUNDRY PRICING CLERK, LAUNDRY PRICING CLERK-C [NON-STAFF] - Disposition Disposition: Home, Self Care Discharge Date/Time: 08/22/21 08:49
[2021-08-22] MEDS: Acetaminophen 500 MG Tablet 1000 MG PO (08:34)
[2021-08-22] MEDS: Clindamycin HCl 150 MG Capsule 450 MG PO (08:34)
== END 2021-08-22 08:49 | disposition home or self-care (01) ==
LOC: ED 08:18
PROVIDERS: Emergency Provider Student in an Organized Health Care Education/Training Program; Visit Provider Student in an Organized Health Care Education/Training Program
DX: S91.331A Puncture wound without foreign body, right foot, initial encounter (principal); F12.90 Cannabis use, unspecified, uncomplicated; F17.210 Nicotine dependence, cigarettes, uncomplicated; E66.9 Obesity, unspecified; L03.115 Cellulitis of right lower limb; X58.XXXA Exposure to other specified factors, initial encounter
CPT/HCPCS: 73630; 99283

== ENCOUNTER → 2023-10-08 | Outpatient (CLI) | payer MEDICAID, SELFPAY ==
[2023-10-14 17:07] LABS: Cortisol, Free 24Ur 35 ug/24 hr (6-42); Cortisol, Urinary Free 12 ug/L (Undefined)
== END | disposition home or self-care (01) ==
LOC: LABSPEC 11:41
PROVIDERS: PCP Nurse Practitioner Family; Referring Provider Internal Medicine Endocrinology, Diabetes & Metabolism; Visit Provider Internal Medicine Endocrinology, Diabetes & Metabolism
DX: D35.00 Benign neoplasm of unspecified adrenal gland (principal); E03.9 Hypothyroidism, unspecified
CPT/HCPCS: 81050; 82530

== ENCOUNTER → 2024-11-28 | Outpatient (CLI) | payer MEDICAID, SELFPAY ==
--- NOTE | 2024-11-28 13:42 | ART_ITS ---
Reason For Study Reason For Study: Claudication Procedure A bilateral lower extremity continuous wave Doppler with analog waveform analysis,segmental pressures,and ankle brachial indexes without exercise. Left Segmental Pressures Left brachial= 118mmHg. Left posterior tibial artery = 139mmHg. Left dorsalis pedis artery = 126mmHg. Left digit = 78 mmHg. The left dorsalis pedis waveforms are triphasic. The left posterior tibial artery waveforms are triphasic. Right Segmental Pressures Right brachial= 119mmHg. Right posterior tibial artery = 146mmHg. Right dorsalis pedis artery = 139mmHg. Right digit = 89 mmHg. The right dorsalis pedis waveforms are triphasic. The right posterior tibial artery waveforms are biphasic. Indices The right ankle brachial index by the dorsalis pedis is 1.17. The right ankle brachial index by the posterior tibial artery is 1.23. The right digital-brachial index is 0.75. The left ankle brachial index by the dorsalis pedis is 1.06. The left ankle brachial index by the posterior tibial artery is 1.17. The left digital-brachial index is 0.66. VL/Lower Ext Art Exam w/o Exercis Interpretation Summary Right NATALIA 1.23, normal. TBI and Doppler/PVR waveforms of the right leg normal a t rest. Left NATALIA 1.17, normal. Doppler/PVR waveforms of the left leg normal at rest. TB I diminished, pedal/digit disease vs spasm. Ordering Physician: Luana Randhawa Referring Physician: Angi Joe Performed By: Paula Butt RVT
== END | disposition home or self-care (01) ==
LOC: CVS 13:42
PROVIDERS: PCP Nurse Practitioner Family; Referring Provider Physician Assistant; Visit Provider Physician Assistant
DX: I73.9 Peripheral vascular disease, unspecified (principal); R20.2 Paresthesia of skin
CPT/HCPCS: 93923

== ENCOUNTER 2025-01-10 14:00 | Outpatient (RCR) | payer MEDICAID, SELFPAY ==
--- NOTE | 2024-11-29 14:53 | HP.PTEVAL_ITS ---
Patient's Visit Information Visit Information Visit Information: SHANTELL CRAMER is a 49 year old F referred to Physical Therapy by JOLANTA Mahmood with a diagnosis of PAIN IN LOWER LEG ,SOFT TISSUE DISORDER, SYNOVIAL CYST POPILTEAL. Date of Evaluation: 11/29/24 Physical Therapist: Les Galdamez, PT, Cert MDT, OCS Visit Plan Frequency: 2x /Week Duration: 4 Weeks Plan: MRI SHOWS CYST POSTERIOR EXTENDED TO MEDAL CALF TENDONS PT INTERVENTIONS MODALITIES US/ESTIM ,FLEXABILITY HAMSTRINGS/CALF ,PROGRESS TO STRENGTHENING QUADS/HAMS/CALF AND STM CALF Subjective Subjective: This 49 y/o female presents to physical therapy with right knee pain lower leg. Patient has had end August . Patient went to ER at [facility] September 20 and US thus was - thus showed cyst. Patient RENETTA Keller referred by family DR .Ordered MRI knee and lower leg with and without contrast shows small area of low-grade (less than 50% thickness) partial thickness cartilage loss and/or fissuring, distal quadricep and patellar tendons are intact with mild insertional quadriceps tendinosis, the popliteus tendon is intact. Muscle bulk and signal intensity are normal. Lower leg shows proximal right gastrocnemius tendon is a lobulated 7.4 x 2.8 x 2.2 cm cystic T2 hyperintense T1 hypointense nonenhancing lesion. This extends to involve a portion of the muscle at the myotendinous junction. No adjacent muscle signal abnormality or enhancement. Muscle bulk is maintained. 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 Patient also seen Vascular surgery which is - for blood flow and is more related to Bakers Cyst. Plan for gel injections 11/29/24. Pain located posterior radiates to calf. Aggravating factors walking/standing ,unable to squat or kneel. Patient has pain with stairs one step at time.. Alleviating factors rest. Pain affects sleeping. Patient c/o paresthesia/tingling left foot. Patient pain affects QOL and ADLS SOCIAL: single VOCATION: disablity Pain Right Knee: Pain Intensity (Out of 10): 7 Pain Intensity Range: 10 Comment: posterior knee Objective Objective: POSTURE: mild forward posture PALAPTION: tender posterior knee hamstrings medial and G-S muscle belly GAIT: ambulates with reciprocal pattern mild decrease stance time NEURO: c/o paresthesia left foot AROM: 0-135 degrees supine flexion ,ANKLE dorsiflexion 0 degrees FLEXABILITY: hamstrings min tight ,G-S min tight MMT: ( peak force) quads 7.8 ,hamstrings 10.2 ,unable to do calf raises due to pain posterior knee STAIRS: one step at a time Special Tests L Knee Tracy - Meniscus: Negative L Knee Tiburcio - ACL: Negative L Knee Valgus - MCL: Negative L Knee Varus - LCL: Negative L Knee Patellar Apprehension - PFS: Negative Comments: tender calf Balance/Special Test Scores Lower Extremity Functional Score: 15 Goals Goal 1:: Patient to be I with HEP knee Goal Time Frame: 4-6 Weeks Goal 2:: Patient to improve LFES score by 5 points to improve QOL Goal Time Frame: 4-6 Weeks Goal 3:: Patient to improve peak force quads/hams/ by 5-10 # strength to improve gait Goal Time Frame: 4-6 Weeks Goal 4:: Patient to normalize gait Goal Time Frame: 4-6 Weeks Goal 5:: Patient to demonstrate 40% improvement with gait and ADL Goal Time Frame: 4-6 Weeks Rehabilitation Potential Physical Therapy Diagnosis: This patient has posterior knee pain posterior knee radiates to medial knee to medial calf - for DVT or PAD thus had pain ,weakness left quads/hams/calf impairs gait and ADL thus benefit from skilled PT Rehabilitation Potential: Fair Anticipated Interventions Patient/Client Instruction: Educate patient on: Condition and Plan of Care For the Purpose of:: To decrease pain, To increase ROM, To improve muscle performance and motor function, To improve ability to perform ADL's, To increase tolerance to activity/condition/position, To improve ability of physical actions for home/community/work/leisure, To improve health of tissue, To decrease soft tissue restriction and To increase flexibility/ROM Therapeutic Exercise to Include: Strength training, Balance training, Flexibilty training and Active ROM Comment: QUADS/HAM/CALF For the Purpose of:: To decrease pain, To increase ROM, To improve muscle performance and motor function, To improve ability to perform ADL's, To increase tolerance to activity/condition/position, To improve ability of physical actions for home/community/work/leisure, To improve health of tissue, To decrease soft tissue restriction, To increase flexibility/ROM and To improve tolerance to ADL's TENS: Yes IF ES: Yes Thermo therapy (hot pack): Yes Ultrasound (thermal/non thermal): Yes For the Purpose of:: To decrease pain, To increase ROM, To improve nutrient delivery to tissue, To increase oxygenation perfusion, To improve health of tissue and To decrease soft tissue restriction Text: Thank you for the opportunity to evaluate your patient. For Medicare and Medicare HMO plans, please review the plan of care and approve it. It will need to be FAXED BACK to us at [phone] for Medicare purposes. For Medicare only, by signing this I certify the plan of care. Please let me know if there are questions or concerns regarding this plan of care. Physician Signature: Date:
--- NOTE | 2024-11-29 14:55 | HP.PTEVAL ---
Patient's Visit Information Visit Information Visit Information: SHANTELL CRAMER is a 49 year old F referred to Physical Therapy by JOLANTA Mahmood with a diagnosis of PAIN IN LOWER LEG ,SOFT TISSUE DISORDER, SYNOVIAL CYST POPILTEAL. Date of Evaluation: 11/29/24 Physical Therapist: Les Galdamez, PT, Cert MDT, OCS Visit Plan Frequency: 2x /Week Duration: 4 Weeks Plan: MRI SHOWS CYST POSTERIOR EXTENDED TO MEDAL CALF TENDONS PT INTERVENTIONS MODALITIES US/ESTIM ,FLEXABILITY HAMSTRINGS/CALF ,PROGRESS TO STRENGTHENING QUADS/HAMS/CALF AND STM CALF Subjective Subjective: This 49 y/o female presents to physical therapy with right knee pain lower leg. Patient has had end August . Patient went to ER at [facility] September 20 and US thus was - thus showed cyst. Patient RENETTA Keller referred by family DR .Ordered MRI knee and lower leg with and without contrast shows small area of low-grade (less than 50% thickness) partial thickness cartilage loss and/or fissuring, distal quadricep and patellar tendons are intact with mild insertional quadriceps tendinosis, the popliteus tendon is intact. Muscle bulk and signal intensity are normal. Lower leg shows proximal right gastrocnemius tendon is a lobulated 7.4 x 2.8 x 2.2 cm cystic T2 hyperintense T1 hypointense nonenhancing lesion. This extends to involve a portion of the muscle at the myotendinous junction. No adjacent muscle signal abnormality or enhancement. Muscle bulk is maintained. 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 Patient also seen Vascular surgery which is - for blood flow and is more related to Bakers Cyst. Plan for gel injections 11/29/24. Pain located posterior radiates to calf. Aggravating factors walking/standing ,unable to squat or kneel. Patient has pain with stairs one step at time.. Alleviating factors rest. Pain affects sleeping. Patient c/o paresthesia/tingling left foot. Patient pain affects QOL and ADLS SOCIAL: single VOCATION: disablity Pain Right Knee: Pain Intensity (Out of 10): 7 Pain Intensity Range: 10 Comment: posterior knee Objective Objective: POSTURE: mild forward posture PALAPTION: tender posterior knee hamstrings medial and G-S muscle belly GAIT: ambulates with reciprocal pattern mild decrease stance time NEURO: c/o paresthesia left foot AROM: 0-135 degrees supine flexion ,ANKLE dorsiflexion 0 degrees FLEXABILITY: hamstrings min tight ,G-S min tight MMT: ( peak force) quads 7.8 ,hamstrings 10.2 ,unable to do calf raises due to pain posterior knee STAIRS: one step at a time Special Tests L Knee Tracy - Meniscus: Negative L Knee Tiburcio - ACL: Negative L Knee Valgus - MCL: Negative L Knee Varus - LCL: Negative L Knee Patellar Apprehension - PFS: Negative Comments: tender calf Balance/Special Test Scores Lower Extremity Functional Score: 15 Goals Goal 1:: Patient to be I with HEP knee Goal Time Frame: 4-6 Weeks Goal 2:: Patient to improve LFES score by 5 points to improve QOL Goal Time Frame: 4-6 Weeks Goal 3:: Patient to improve peak force quads/hams/ by 5-10 # strength to improve gait Goal Time Frame: 4-6 Weeks Goal 4:: Patient to normalize gait Goal Time Frame: 4-6 Weeks Goal 5:: Patient to demonstrate 40% improvement with gait and ADL Goal Time Frame: 4-6 Weeks Rehabilitation Potential Physical Therapy Diagnosis: This patient has posterior knee pain posterior knee radiates to medial knee to medial calf - for DVT or PAD thus had pain ,weakness left quads/hams/calf impairs gait and ADL thus benefit from skilled PT Rehabilitation Potential: Fair Anticipated Interventions Patient/Client Instruction: Educate patient on: Condition and Plan of Care For the Purpose of:: To decrease pain, To increase ROM, To improve muscle performance and motor function, To improve ability to perform ADL's, To increase tolerance to activity/condition/position, To improve ability of physical actions for home/community/work/leisure, To improve health of tissue, To decrease soft tissue restriction and To increase flexibility/ROM Therapeutic Exercise to Include: Strength training, Balance training, Flexibilty training and Active ROM Comment: QUADS/HAM/CALF For the Purpose of:: To decrease pain, To increase ROM, To improve muscle performance and motor function, To improve ability to perform ADL's, To increase tolerance to activity/condition/position, To improve ability of physical actions for home/community/work/leisure, To improve health of tissue, To decrease soft tissue restriction, To increase flexibility/ROM and To improve tolerance to ADL's Manual Therapy Techniques to Include: Soft tissue mobilization Comment: STICK For the Purpose of:: To decrease pain, To improve nutrient delivery to tissue, To increase oxygenation perfusion, To improve health of tissue and To decrease soft tissue restriction TENS: Yes IF ES: Yes Thermo therapy (hot pack): Yes Ultrasound (thermal/non thermal): Yes For the Purpose of:: To decrease pain, To increase ROM, To improve nutrient delivery to tissue, To increase oxygenation perfusion, To improve health of tissue and To decrease soft tissue restriction Text: Thank you for the opportunity to evaluate your patient. For Medicare and Medicare HMO plans, please review the plan of care and approve it. It will need to be FAXED BACK to us at [phone] for Medicare purposes. For Medicare only, by signing this I certify the plan of care. Please let me know if there are questions or concerns regarding this plan of care. Physician Signature: Date:
== END 2025-01-10 19:00 | disposition home or self-care (01) ==
LOC: PT 14:00
PROVIDERS: PCP Nurse Practitioner Family; Referring Provider Nurse Practitioner Family; Visit Provider Nurse Practitioner Family
DX: M79.662 Pain in left lower leg (principal); M79.89 Other specified soft tissue disorders; M71.20 Synovial cyst of popliteal space [Baker], unspecified knee; M17.12 Unilateral primary osteoarthritis, left knee
CPT/HCPCS: 97014; 97032; 97035; 97110; 97162; 97530; G0283